=== PATIENT | male | born 1950 | race Caucasian/White ===

== ENCOUNTER → 2019-06-23 13:08 | Outpatient (CLI) | payer MEDICARE, SELFPAY ==
--- NOTE | 2019-06-23 13:14 | CT_ITS ---
STUDY: CT BRAIN WITHOUT CONTRAST REASON FOR EXAM: Male, 68 years old. POSTURAL IMBALANCE RADIATION DOSAGE (If Supplied By Facility): CTDIvol = ( 60.81 ) mGy, DLP = ( 1135.50 ) mGycm TECHNIQUE: Transaxial CT imaging of the brain was performed without administration of intravenous contrast material. Individualized dose optimization techniques were used for this CT. COMPARISON: No relevant priors. FINDINGS: Normal soft tissue structures. Normal calvarium. There is mild cerebral atrophy with widening of the extra-axial spaces and ventricular dilatation. There are areas of decreased attenuation within the white matter tracts of the supratentorial brain, consistent with microvascular disease changes. Normal basal ganglia and thalami. Normal brainstem. Normal cerebellum. There is no intracranial hemorrhage. There are no findings of an acute ischemic infarction. Atherosclerotic calcification of the cavernous portions of the internal carotid arteries bilaterally. A fluid level in the right maxillary sinus suggestive of sinusitis. CT/Brain/Head without Contrast IMPRESSION: Chronic involutional changes of the brain. Right maxillary sinusitis. Electronically Signed: Rohan Ham, at 14:45 EDT , Service support ,
== END ==
PROVIDERS: PCP Nurse Practitioner; Referring Provider Nurse Practitioner; Visit Provider Nurse Practitioner
DX: R42 Dizziness and giddiness (principal); J32.0 Chronic maxillary sinusitis; R29.3 Abnormal posture
CPT/HCPCS: 70450

== ENCOUNTER → 2019-07-17 10:08 | Outpatient (CLI) | payer MEDICARE, SELFPAY ==
--- NOTE | 2019-07-17 10:13 | MRI_ITS ---
STUDY: MRA OF THE HEAD WITHOUT CONTRAST REASON FOR EXAM: Male, 68 years old. Abn carotid on blood flow screening -- no symptoms TECHNIQUE: 3-D [id number] (TOF) imaging was performed with MIPs. The study was performed unenhanced. COMPARISON: CT head without contrast 06/23/2019. FINDINGS: Normal bilateral petrous carotid arteries. Normal right cavernous carotid artery with a normal supraclinoid bifurcation. Normal left cavernous carotid artery with a normal supraclinoid bifurcation. Normal right A1 segment of the anterior cerebral artery. Normal left A1 segment of the anterior cerebral artery. Normal intact anterior communicating artery (ACOM). Normal bilateral A2 segments of the anterior cerebral arteries. Normal right M1 and M2 segments of the middle cerebral arteries, with a normal M1 bifurcation. Normal left M1 and M2 segments of the middle cerebral arteries, with a normal M1 bifurcation. origin of the right WELLNESS NURSE off the right internal carotid artery rather than a widely patent right posterior communicating artery (PCOM). This explains the development of absent right P1 segment. Normal left posterior communicating artery (PCOM). The vertebral arteries are not included. Minimal irregularities in the freitas of the basilar artery with a normal basilar bifurcation. The visualized bilateral superior cerebellar (SCA) arteries are normal. Developmentally absent right P1 segment. Normal left P1, bilateral P2 and visualized P3 segments of the posterior cerebral arteries. There is no demonstrated aneurysm of the [place]. There is no major vessel occlusion or hemodynamically significant stenosis. There is no demonstrated abnormality of the visualized brain. MRI/MRA Head ONLY without Contrast IMPRESSION: 1. Limited MRA of the head since both vertebral arteries are not included. 2. 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 3. No MRA evidence of any suspicious vaso-occlusive disease of the anterior and posterior intracranial circulation. 4. Minimal irregularities of the fre[place] of the basilar artery suggesting small vessel atherosclerotic plaques. 5. No MRA evidence of intracranial aneurysm, saccular or fusiform type. Electronically Signed: Anthony Hutchison MD at 12:33 EDT , Service support ,
--- NOTE | 2019-07-17 10:32 | CDU_ITS ---
Reason For Study: Abnormal carotid on screening Rt. Velocities/BP Lt. Velocities/BP Prox CCA 56.5/10.8 cm/sec. Prox CCA 57.9/14.5 cm/sec. Mid CCA 57.8/12.1 cm/sec. Mid CCA 60.7/15.4 cm/sec. Dist CCA 41/12.4 cm/sec. Dist CCA 51.3/14.5 cm/sec. Prox ICA 32.5/9.9 cm/sec. Prox ICA 43/5.5 cm/sec. Mid ICA 62.2/17 cm/sec. Mid ICA 42.9/18.7 cm/sec. Dist ICA 56.1/18.6 cm/sec. Dist ICA 249.8/104.4 cm/sec. Rt. ICA/CCA = 1.10. Lt. ICA/CCA = 4.3. Prox ECA 89.3/9.1 cm/sec. Prox ECA 82.7/11.3 cm/sec. Rt. Vert. 26.9/7.2 cm/sec. Lt. Vert. 32.4/15.4 cm/sec. Right Extracranial There is homogeneous, smooth atherosclerotic plaque noted in the right common carotid artery. There is heterogeneous, irregular atherosclerotic plaque noted in the right internal carotid artery. There is homogeneous, smooth atherosclerotic plaque noted in the right external carotid artery. Antegrade flow is noted in the right vertebral artery. Left Extracranial There is homogeneous, smooth atherosclerotic plaque noted in the left common carotid artery. There is heterogeneous, irregular atherosclerotic plaque noted in the left internal carotid artery. There is homogeneous, smooth atherosclerotic plaque noted in the left external carotid artery. Antegrade flow is noted in the left vertebral artery. Procedure Carotid Duplex 14907. Known left ICA carotid stenosis from screening on 06/05/2019. Exam performed in department. Interpretation Summary Mild (<50%) stenosis right extracranial internal carotid. There appears to be severe stenosis in the left distal internal carotid artery, >70%. Flow within the vertebral arteries is antegrade bilaterally. Ordering Physician: Isabel Wilson Referring Physician: Isabel Wilson Performed By: Rhoda Lauren RVT
== END ==
PROVIDERS: PCP Nurse Practitioner; Referring Provider Nurse Practitioner; Visit Provider Nurse Practitioner
DX: I67.9 Cerebrovascular disease, unspecified (principal); R93.89 Abnormal findings on diagnostic imaging of other specified body structures
CPT/HCPCS: 70544; 93880

== ENCOUNTER 2019-07-17 14:55 | Emergency (ER) | payer MEDICARE, SELFPAY ==
[2019-07-17 14:56] VITALS: BP 160/93; PULSE 97; RESP 18; TEMP 36.6; O2SAT 97; BMI 33.0
--- NOTE | 2019-07-17 16:09 | ED.RN ---
pt had large bowel movement, reported to dr. castro.
--- NOTE | 2019-07-17 16:41 | ED.DCSUM_ITS ---
History of Present Illness Chief Complaint: Constipation Informant: Patient Onset: Weeks - 1 Timing: Continuous Quality: [place] like he needed to have a bowel movement but unable Location: Rectum Current Severity: Moderate Maximum Severity: Moderate Worsened by: Nothing Relieved by: Nothing Associated Symptoms: None. No abdominal pain, nausea, vomiting, systemic symptoms. Narrative: Patient presents by EMS because he has not had a bowel movement in 6 days. He has had no pain, but today had the urge to go and sat on the toilet for an hour or 2 but could not. Still feels the need to. No history of any abdominal surgeries in the past. No prescription pain medications recently. No medication changes. He cannot recall any obvious changes in his diet that may have resulted in this. Past Medical History - Allergies and Home Meds Allergies/Adverse Reactions: Allergies No Known Allergies Allergy (Verified 07/17/19 14:56) Primary Care Physician: Isabel Wilson NP-C [Primary Care Provider] - Past Medical History: None Surgical History: - - No history of abdominal surgeries Lives: Alone Smoking Status: Former smoker Review of Systems General: Denies: Chills, Fever, Sweats Eyes: Denies: Visual changes - bilaterally, Diplopia ENT: Denies: Rhinorrhea, Sore throat Cardiovascular: Denies: Chest pain, Palpitations Respiratory: Denies: Dyspnea, Cough, Dyspnea on exertion Gastrointestinal: Reports: Constipation. Denies: Abdominal pain, Nausea, Vomiting, Diarrhea, Melena, Hematochezia Genitourinary: Denies: Dysuria, Hematuria, Frequency Musculoskeletal: Denies: Back pain, Swelling, Extremity Pain Skin: Denies: Rash, Wounds Neurological: Denies: Headache, Weakness, Numbness Physical Exam Vital Signs/Narrative: Vital Signs Temp Pulse Resp BP Pulse Ox 07/17/19 14:56 97.8 F 97 18 160/93 H 97 Inital Vital Signs reviewed: Yes General: Well nourished, Well developed, No Acute Distress Head: Normocephalic, Atraumatic Eyes: Perrl, EOMI ENT: Moist mucous membranes, No rhinorrhea Neck: Supple, Nontender Cardiovascular: Regular rate, Regular rhythm, No murmurs Respiratory: No distress, CTA bilaterally, Chest nontender Abdomen: Soft, Nontender, Nondistended, Normal bowel sounds Rectal: Nontender, - - Gross blood. Significant amount of hard stool present in the rectal vault that I was able to circumvent with my finger. Back: Nontender, Normal Inspection Extremities: Nontender, No edema Skin: Normal color, No rash Neurological: Alert, Oriented x3, Cranial nerves II-XII grossly intact, Normal Strength, Normal Sensation Psychological: Normal affect, Normal Mood Diagnostic/Tx/Re-eval - Medical Decision Making Performing a rectal exam, the patient was able to have an extremely large bowel movement and felt much better. Discharged home stable condition with advice to take MiraLAX daily and follow-up routinely, return to the ER for any worsening issues. ED Disposition - Plan for ED Patient: Disposition: Home or Assisted Living Diagnosis: Constipation Instructions: ED Constipation Referrals: Isabel Wilson NP-C [Primary Care Provider] - Additional Instructions: Buy a bottle of MiraLAX or generic equivalent, take 1 capful dissolved in at least 8 ounces of any liquid once daily along with plenty of fluids.
== END 2019-07-17 17:06 | disposition home or self-care (01) ==
PROVIDERS: Emergency Provider Emergency Medicine; PCP Nurse Practitioner
DX: K59.00 Constipation, unspecified (principal); Z87.891 Personal history of nicotine dependence; I65.23 Occlusion and stenosis of bilateral carotid arteries; I67.9 Cerebrovascular disease, unspecified; R93.89 Abnormal findings on diagnostic imaging of other specified body structures
CPT/HCPCS: 70544; 93880; 99284

== ENCOUNTER → 2020-08-07 07:29 | Outpatient (CLI) | payer MEDICARE, SELFPAY ==
--- NOTE | 2020-08-07 07:32 | CT_ITS ---
STUDY: LOW DOSE CT LUNG CANCER SCREENING REASON FOR EXAM: Male, 69 years old. FORMER SMOKER. Patient smoked 2 packs per day for 39 years. RADIATION DOSAGE (If Supplied By Facility): CTDIvol = ( 4.02 ) mGy, DLP = ( 131.39 ) mGycm TECHNIQUE: No contrast was administered. Low dose technique was utilized (average mAS-38 and kVp 120). 1.25 mm axial source images with a slice interval of 1.25-mm were reconstructed in lung windows. 2.5 mm axial source images with a slice interval of 2.5-mm were reconstructed in lung windows. 5.0 mm axial source images with a slice interval of 5.0-mm were reconstructed in soft tissue windows. Nodule measured using lung windows on PACS and/or independent workstation with automated measurement of minimum and maximum diameter. Nodule measurement reported as average diameter rounded to the nearest whole number. Growth is defined as an increase ins size of greater than 1.5 mm. COMPARISON: None. NODULES: No suspicious nodules are seen. Emphysema: Hyperinflation. Mild degree of the subpleural bleb seen in the anterior aspects of both upper lobes slightly more prominent on the right side. Mild degree of increased markings at the lung bases suggestive of mild degree of scarring slightly more prominent at the left lung base. Endobronchial lesion: None Aorta: Calcified aortic plaques. Coronary arteries: Coronary artery calcification. Heart: Unremarkable Pulmonary artery: Unremarkable Mediastinal nodes: Small benign-appearing mediastinal lymph nodes. Other chest and abdominal findings: Degenerative changes of the thoracic spine. CT/Low Dose CT Lung Screening IMPRESSION: Lung-RADS category 2 - Continue annual screening with LDCT in 12 months. IMPORTANT NOTES FOR USE: ACR Lung-RADS Version 1.1 Assessment Categories Release Date: 2018 Category: Coded 0-4 bases on nodule(s) with highest degree of suspicion. Negative screen is defined as categories 1 and 2; a positive screen is defined as categories 3 and 4. Category 3 and 4A nodules that are unchanged on interval CT should be coded as category 2, and individuals returned to screening in 12 months. Category 4X: Category 3 or 4 nodules with additional imaging findings that increase the suspicion of lung cancer, such as spiculation, GGN that doubles in size in 1 year, enlarged lymph notes, etc. Category Modifiers: S (significant finding unrelated to lung cancer) Electronically Signed: Rohan Ham MD at 9:57 EDT , Service support ,
== END ==
PROVIDERS: PCP Nurse Practitioner; Referring Provider Nurse Practitioner; Visit Provider Nurse Practitioner
DX: Z77.090 Contact with and (suspected) exposure to asbestos (principal); Z87.891 Personal history of nicotine dependence
CPT/HCPCS: 71271

== ENCOUNTER → 2022-01-02 | Outpatient (CLI) | payer MEDICARE, SELFPAY ==
--- NOTE | 2022-01-02 08:20 | CT_ITS ---
STUDY: LOW DOSE CT LUNG CANCER SCREENING REASON FOR EXAM: Male, 71 years old. Former smoker of 2 packs per day x39 years. RADIATION DOSAGE (If Supplied By Facility): CTDIvol = ( 3.18 ) mGy, DLP = ( 117.55 ) mGycm TECHNIQUE: No contrast was administered. Low dose technique was utilized (average mAS-38 and kVp 120). 1.25 mm axial source images with a slice interval of 1.25-mm were reconstructed in lung windows. 2.5 mm axial source images with a slice interval of 2.5-mm were reconstructed in lung windows. 5.0 mm axial source images with a slice interval of 5.0-mm were reconstructed in soft tissue windows. COMPARISON: 08/07 21 FINDINGS: Lung windows show mild underlying emphysema. Mild interstitial changes noted throughout both lung fisher without a superimposed infiltrate, effusion, or suspicious noncalcified mass or nodule. No significant interval change since the previous study. Soft tissue windows show normal-appearing thyroid gland. No suspicious adenopathy. Stable aneurysmal dilatation of the ascending thoracic aorta at 4.57 cm. There are calcified coronary vessels. Limited cuts through the upper abdomen do not show suspicious abnormality. Bony structures show degenerative change CT/Low Dose CT Lung Screening IMPRESSION: Lung-RADS category 2 - Continue annual screening with LDCT in 12 months. IMPORTANT NOTES FOR USE: ACR Lung-RADS Version 1.1 Assessment Categories Release Date: 2018 Category: Coded 0-4 bases on nodule(s) with highest degree of suspicion. Negative screen is defined as categories 1 and 2; a positive screen is defined as categories 3 and 4. Category 3 and 4A nodules that are unchanged on interval CT should be coded as category 2, and individuals returned to screening in 12 months. Category 4X: Category 3 or 4 nodules with additional imaging findings that increase the suspicion of lung cancer, such as spiculation, GGN that doubles in size in 1 year, enlarged lymph notes, etc. Category Modifiers: S (significant finding unrelated to lung cancer) Electronically Signed: Paco Powers MD at 10:25 EDT ,
== END | disposition home or self-care (01) ==
PROVIDERS: PCP Nurse Practitioner Family; Referring Provider Nurse Practitioner Family; Visit Provider Nurse Practitioner Family
DX: Z87.891 Personal history of nicotine dependence (principal)
CPT/HCPCS: 71271

== ENCOUNTER 2023-04-10 22:51 | Emergency (ER) | payer MEDICARE, SELFPAY ==
[2023-04-10 22:51] VITALS: BP 192/94; PULSE 91; RESP 17; TEMP 36.8; O2SAT 99; BMI 35.0
--- OUTSIDE RECORDS SUMMARY | 2023-04-10 23:26 | XMS RPT_ITS | CCD ---
Author Name Unknown Address [address] [facility] [address] [place] [address] Organization [facility] Care Team Providers Care Reports Analysis Manager Name Role Phone Isabel Wilson Unavailable Bethany Walter Unavailable Javi Nolasco Unavailable Unavailable Unavailable Unavailable Javi Villanueva Unavailable Unavailable Melinda Marx Unavailable Unavailable Isabel Wilson CNP Unavailable Javi Villanueva LPN Unavailable Unavailable Unavailable Unavailable Carter Walter Unavailable Cheryl Marquez LPN Unavailable Unavailable Isabel Wilson CNP Primary Care Provider Maria Luisa Pizano CNP Unavailable Maria Luisa Pizano CNP Unavailable Stew Pollard Unavailable Michele CATES, Kayela Unavailable Unavailable Jose KNOX, RADHIKA Unavailable Unavailable Isabel Wilson Unavailable Francisco J KNOX Melinda Unavailable Unavailable Maria Luisa Pizano CNP Attending Unavailable Maria Luisa Pizano CNP Consulting Unavailable Maria Luisa Pizano CNP Referring Unavailable Baljinder Nesbitt Unavailable Medications Completed/Discontinued Medications Medication Drug Class(es) Dates Sig (Normalized) Sig (Original) acyclovir 800 mg oral tablet (20 sources) Herpesvirus Nucleoside Analog DNA Polymerase Inhibitor, Herpes Simplex Virus Nucleoside Analog DNA Polymerase Inhibitor, Herpes Zoster Virus Nucleoside Analog DNA Polymerase Inhibitor Start: 01-11-2012 End: 01-18-2012 ACYCLOVIR, 800MG (Oral Tablet) 1 Tablet 5 x daily for 7 days Quantity: 35 {Tablet} Refills: 0 Ordered: 11-Jan-2012 Isabel Wilson Start : 11-Jan-2012 End : 18-Jan-2012 Inactive amoxicillin 500 mg / clavulanate 125 mg oral tablet (20 sources) Penicillin-class Antibacterial Start: 06-23-2019 End: 07-07-2019 take 1 tablet by mouth twice daily Amoxicillin-Pot Clavulanate 500-125 MG Oral Tablet 1 (one) Tablet bid for 10 days Quantity: 20 {Tablet} Refills: 0 Ordered: 07-Jul-2019 Javi Villanueva LPN Start : 29-Jun-2019 End : 07-Jul-2019 Inactive Apple Cider Vinegar (1 source) take 1 tablet by mouth once daily APPLE CIDER VINEGAR ORAL Take 1 tablet by mouth once daily. 0 Active Problems Active Problems Problem Classification Problem Date Documented Da te Episodic/Chronic Abdominal pain (20 sources) Right lower quadrant pain; Translations: [Abdominal pain, acute, right lower quadrant] Resolved: 09-25-2019 07-07-2019 Episodic Past or Other Problems Problem Classification Problem Date Documented Da te Episodic/Chronic Influenza (11 sources) Influenza Substance-related disorders (15 sources) Stopped smoking; Translations: [Former smoker, stopped smoking in distant past] 07-07-2019 Results Test Name Value Interpretation Reference Range Facil ity Vital Signs Date Time Vital Sign Value Performing Clinician Facility 01-01-2023 10:20-0400 Body height 173.99 cm Melinda Marx LPN [facility] Work Phone: 01-01-2023 10:20-0400 Body mass index (BMI) [Ratio] 34.91 kg/m2 Melinda Marx LPN [facility] Work Phone: 01-01-2023 10:20-0400 Body surface area Derived from formula 2.19 m2 Melinda Marx LPN [facility] Work Phone: 01-01-2023 10:20-0400 Body temperature 96.5 [degF] Melinda Marx LPN [facility] Work Phone: Encounters Encounter Date Encounter Type Care Provider Facility Start: 01-01-2023 End: 01-06-2023 Office outpatient visit 25 minutes Maria Luisa Pizano CNP Work Phone: [facility] Start: 01-01-2023 Review Maria Luisa Pizano CNP Work Phone: [facility] Start: 11-25-2022 End: 11-25-2022 Annotation/Addendum Maria Luisa Pizano CNP Work Phone: [facility] Start: 11-24-2022 Review Maria Luisa Pizano CNP Work Phone: [facility] Start: 11-23-2022 End: 11-24-2022 Office outpatient visit 15 minutes Maria Luisa Pizano CNP Work Phone: [facility] Start: 10-02-2022 End: 10-02-2022 Annotation/Addendum Maria Luisa Pizano CNP Work Phone: [facility] Start: 09-30-2022 End: 10-08-2022 Office outpatient visit 15 minutes Maria Luisa Pizano CNP Work Phone: [facility] Start: 06-30-2022 End: 07-03-2022 Office outpatient visit 25 minutes Maria Luisa Pizano CNP Work Phone: [facility] Start: 04-01-2022 ambulatory Maria Luisa Pizano CNP [facility] Start: 04-01-2022 End: 04-01-2022 Office outpatient visit 25 minutes Maria Luisa Pizano CNP Work Phone: [facility] Start: 04-01-2022 Review Maria Luisa Pizano CNP Work Phone: [facility] Start: 12-30-2021 End: 01-02-2022 Office outpatient visit 25 minutes Maria Luisa Pizano [employer] Work Phone: [facility] Start: 2021 End: 2021 Office outpatient visit 25 minutes Maria Luisa Pizano [employer] Work Phone: [facility] Start: 2021 Review Maria Luisa Pizano CNP Work Phone: [facility] Start: 09-17-2021 Telephone encounter Carter Walter MD Work Phone: [facility] Procedures Date Procedure Procedure Detail Performing Clinician Start: 11-23-2022 End: 11-24-2022 HIP, UNI W/ Pelvis 2-3 Views Procedure Note: See Note; NOTES: [facility] Radiology [address] [place] [address] HIP, UNI W/ Pelvis 2-3 Views MR#: [id number] Acct: [id number] Name: LINDA WILLIS Rep #: [id number] : 1950 M 72 From: Luis Powers MD PCP: MARIYA Chi Status: DEP AMB Study: HIP, UNI W/ Pelvis 2-3 Views Date of Exam: 02/04 Exam# [id number] Ordering Dr: Maria Luisa Pizano STUDY: X-RAY - PELVIS AND LEFT HIP REASON FOR EXAM: Male, 72 years old. PAIN TECHNIQUE: 3 views of the pelvis and hip. COMPARISON: None. FINDINGS: There is a non-specific bowel gas pattern. Normal visualized soft tissue structures. There is narrowing with cortical sclerosis and osteophyte formation of the sacroiliac joint consistent with degenerative osteoarthritic changes. Normal bilateral superior and inferior pubic rami. Normal pubic symphysis. Normal bilateral ischial tuberosities. Normal visualized femoral head. Normal acetabulum. There is moderate articular joint space narrowing of the hip. Mild left hip arthrosis RAD/HIP, UNI W/ Pelvis 2-3 Views IMPRESSION: Age consistent degenerative changes without fracture or suspicious osseous lesion. However, hip and pelvic fractures in patients of this age can be subtle, if there is strong clinical suspicion of a fracture, recommend further evaluation with CT Electronically Signed: Paco Powers MD at 17:03 EDT , CC: MARIYA Pizano Auxiliary Power Equipment Operator: Signed Maria Luisa Pizano [facility] Work Phone: Start: 01-02-2022 End: 01-02-[address] Lung Screening Procedure Note: See Note; NOTES: [facility] Imaging Services [address] [place] [address] Lung Screening MR#: [id number] Acct: [id number] Name: LINDA WILLIS Rep #: [id number] : 1950 M 71 From: Luis Powers MD PCP: MARIYA Chi Status: [facility] CL Study: Low Dose CT Lung Screening Date of Exam: 01/02 Exam# [id number] Ordering Dr: Maria Luisa Pizano STUDY: LOW DOSE CT LUNG CANCER SCREENING REASON FOR EXAM: Male, 71 years old. Former smoker of 2 packs per day x39 years. RADIATION DOSAGE (If Supplied By Facility): CTDIvol = ( 3.18 ) mGy, DLP = ( 117.55 ) mGycm TECHNIQUE: No contrast was administered. Low dose technique was utilized (average mAS-38 and kVp 120). 1.25 mm axial source images with a slice interval of 1.25-mm were reconstructed in lung windows. 2.5 mm axial source images with a slice interval of 2.5-mm were reconstructed in lung windows. 5.0 mm axial source images with a slice interval of 5.0-mm were reconstructed in soft tissue windows. COMPARISON: 08/07 21 FINDINGS: Lung windows show mild underlying emphysema. Mild interstitial changes noted throughout both lung fisher without a superimposed infiltrate, effusion, or suspicious noncalcified mass or nodule. No significant interval change since the previous study. Soft tissue windows show normal-appearing thyroid gland. No suspicious adenopathy. Stable aneurysmal dilatation of the ascending thoracic aorta at 4.57 cm. There are calcified coronary vessels. Limited cuts through the upper abdomen do not show suspicious abnormality. Bony structures show degenerative change CT/Low Dose CT Lung Screening IMPRESSION: Lung-RADS category 2 - Continue annual screening with LDCT in 12 months. IMPORTANT NOTES FOR USE: ACR Lung-RADS Version 1.1 Assessment Categories Release Date: 2018 Category: Coded 0-4 bases on nodule(s) with highest degree of suspicion. Negative screen is defined as categories 1 and 2; a positive screen is defined as categories 3 and 4. Category 3 and 4A nodules that are unchanged on interval CT should be coded as category 2, and individuals returned to screening in 12 months. Category 4X: Category 3 or 4 nodules with additional imaging findings that increase the suspicion of lung cancer, such as spiculation, GGN that doubles in size in 1 year, enlarged lymph notes, etc. Category Modifiers: S (significant finding unrelated to lung cancer) Electronically Signed: Paco Powers MD at 10:25 EDT , CC: Maria Luisa Pizano LOAD PLANNER; LOAD PLANNER-C Maria Luisa Pizano Auxiliary Power Equipment Operator: Signed Maria Luisa Pizano CNP Work Phone: Start: 08-07-2020 End: 08-07-[address] Lung Screening Comments: See Note; NOTES: [facility] Imaging Services [address] [place] [address] Lung Screening MR#: [id number] Acct: [id number] Name: LINDA WILLIS Rep #: [id number] : 1950 M 69 From: Rohan stratton MD PCP: MARYIA Carney Status: [facility] CL Study: Low Dose CT Lung Screening Date of Exam: 08/07 Exam# [id number] Ordering Dr: Isabel Wilson NP LOAD PLANNER-C STUDY: LOW DOSE CT LUNG CANCER SCREENING REASON FOR EXAM: Male, 69 years old. FORMER SMOKER. Patient smoked 2 packs per day for 39 years. RADIATION DOSAGE (If Supplied By Facility): CTDIvol = ( 4.02 ) mGy, DLP = ( 131.39 ) mGycm TECHNIQUE: No contrast was administered. Low dose technique was utilized (average mAS-38 and kVp 120). 1.25 mm axial source images with a slice interval of 1.25-mm were reconstructed in lung windows. 2.5 mm axial source images with a slice interval of 2.5-mm were reconstructed in lung windows. 5.0 mm axial source images with a slice interval of 5.0-mm were reconstructed in soft tissue windows. Nodule measured using lung windows on PACS and/or independent workstation with automated measurement of minimum and maximum diameter. Nodule measurement reported as average diameter rounded to the nearest whole number. Growth is defined as an increase ins size of greater than 1.5 mm. COMPARISON: None. NODULES: No suspicious nodules are seen. Emphysema: Hyperinflation. Mild degree of the subpleural bleb seen in the anterior aspects of both upper lobes slightly more prominent on the right side. Mild degree of increased markings at the lung bases suggestive of mild degree of scarring slightly more prominent at the left lung base. Endobronchial lesion: None Aorta: Calcified aortic plaques. Coronary arteries: Coronary artery calcification. Heart: Unremarkable Pulmonary artery: Unremarkable Mediastinal nodes: Small benign-appearing mediastinal lymph nodes. Other chest and abdominal findings: Degenerative changes of the thoracic spine. CT/Low Dose CT Lung Screening IMPRESSION: Lung-RADS category 2 - Continue annual screening with LDCT in 12 months. IMPORTANT NOTES FOR USE: ACR Lung-RADS Version 1.1 Assessment Categories Release Date: 2018 Category: Coded 0-4 bases on nodule(s) with highest degree of suspicion. Negative screen is defined as categories 1 and 2; a positive screen is defined as categories 3 and 4. Category 3 and 4A nodules that are unchanged on interval CT should be coded as category 2, and individuals returned to screening in 12 months. Category 4X: Category 3 or 4 nodules with additional imaging findings that increase the suspicion of lung cancer, such as spiculation, GGN that doubles in size in 1 year, enlarged lymph notes, etc. Category Modifiers: S (significant finding unrelated to lung cancer) Electronically Signed: Rohan Ham MD at 9:57 EDT , Service support , CC: MARIYA Wilson Auxiliary Power Equipment Operator: Signed Isabel Wilson [facility] Work Phone: Start: 07-17-2019 End: 07-17-2019 Emergency Department Summary Comments: See Note; NOTES: [facility] Medical Records Department [address] [place] [address] Emergency Department Summary 07/17/19 MR#: [id number] Acct: [id number] Name: LINDA WILLIS Rep #: [id number] : 1950 68 From: Servando Callaway MD PCP: MARIYA Carney Status: REG ER History of Present Illness Chief Complaint: Constipation Informant: Patient Onset: Weeks - 1 Timing: Continuous Quality: [place] like he needed to have a bowel movement but unable Location: Rectum Current Severity: Moderate Maximum Severity: Moderate Worsened by: Nothing Relieved by: Nothing Associated Symptoms: None. No abdominal pain, nausea, vomiting, systemic symptoms. Narrative: Patient presents by EMS because he has not had a bowel movement in 6 days. He has had no pain, but today had the urge to go and sat on the toilet for an hour or 2 but could not. Still feels the need to. No history of any abdominal surgeries in the past. No prescription pain medications recently. No medication changes. He cannot recall any obvious changes in his diet that may have resulted in this. Past Medical History - Allergies and Home Meds Allergies/Adverse Reactions: Allergies No Known Allergies Allergy (Verified 07/17/19 14:56) Primary Care Physician: Isabel Wilson NP-C [Primary Care Provider] - Past Medical History: None Surgical History: - - No history of abdominal surgeries Lives: Alone Smoking Status: Former smoker Review of Systems General: Denies: Chills, Fever, Sweats Eyes: Denies: Visual changes - bilaterally, Diplopia ENT: Denies: Rhinorrhea, Sore throat Cardiovascular: Denies: Chest pain, Palpitations Respiratory: Denies: Dyspnea, Cough, Dyspnea on exertion Gastrointestinal: Reports: Constipation. Denies: Abdominal pain, Nausea, Vomiting, Diarrhea, Melena, Hematochezia Genitourinary: Denies: Dysuria, Hematuria, Frequency Musculoskeletal: Denies: Back pain, Swelling, Extremity Pain Skin: Denies: Rash, Wounds Neurological: Denies: Headache, Weakness, Numbness Physical Exam Vital Signs/Narrative: Vital Signs 07/17/19 14:56 97.8 F 97 18 160/93 H 97 Inital Vital Signs reviewed: Yes General: Well nourished, Well developed, No Acute Distress Head: Normocephalic, Atraumatic Eyes: Perrl, EOMI ENT: Moist mucous membranes, No rhinorrhea Neck: Supple, Nontender Cardiovascular: Regular rate, Regular rhythm, No murmurs Respiratory: No distress, CTA bilaterally, Chest nontender Abdomen: Soft, Nontender, Nondistended, Normal bowel sounds Rectal: Nontender, - - Gross blood. Significant amount of hard stool present in the rectal vault that I was able to circumvent with my finger. Back: Nontender, Normal Inspection Extremities: Nontender, No edema Skin: Normal color, No rash Neurological: Alert, Oriented x3, Cranial nerves II-XII grossly intact, Normal Strength, Normal Sensation Psychological: Normal affect, Normal Mood Diagnostic/Tx/Re-eval - Medical Decision Making Performing a rectal exam, the patient was able to have an extremely large bowel movement and felt much better. Discharged home stable condition with advice to take MiraLAX daily and follow-up routinely, return to the ER for any worsening issues. ED Disposition - Plan for ED Patient: Disposition: Home or Assisted Living Diagnosis: Constipation Instructions: ED Constipation Referrals: Isabel Wilson NP-C [Primary Care Provider] - Additional Instructions: Buy a bottle of MiraLAX or generic equivalent, take 1 capful dissolved in at least 8 ounces of any liquid once daily along with plenty of fluids. What to do if you have Problems For any increased pain, shortness of breath, bleeding, nausea or vomiting, chest pain, or any unexpected problems, contact your Primary Care Provider. Call [employer] [facility] ([phone]) or report to the closest Emergency Room. Call 911 if necessary. 07/17/19 7323 <Electronically signed by Servando Callaway MD> Date Servando Callaway MD Cosigner Signature (If Indicated): Date CC: LOAD PLANNER-C Isabel Ciesa Isabel Ciesa Start: 07-17-2019 End: 07-17-2019 Carotid Duplex Ultrasound Comments: See Note; NOTES: [facility] Cardiovascular Services [address] [place] [address] Carotid Duplex Ultrasound 07/17/19 1121 MR#: [id number] Acct: [id number] Name: LINDA WILLIS Rep #: [id number] : 1950 68 From: Federico Rich MD Attending Dr: MARIYA Carney Status: REG CLI Ordering Dr: Isabel Wilson Date: 07/17/19 Location: MRI Sex: M C Admitted: Reason For Study: Abnormal carotid on screening Rt. Velocities/BP Lt. Velocities/BP Prox CCA 56.5/10.8 cm/sec. Prox CCA 57.9/14.5 cm/sec. Mid CCA 57.8/12.1 cm/sec. Mid CCA 60.7/15.4 cm/sec. Dist CCA 41/12.4 cm/sec. Dist CCA 51.3/14.5 cm/sec. Prox ICA 32.5/9.9 cm/sec. Prox ICA 43/5.5 cm/sec. Mid ICA 62.2/17 cm/sec. Mid ICA 42.9/18.7 cm/sec. Dist ICA 56.1/18.6 cm/sec. Dist ICA 249.8/104.4 cm/sec. Rt. ICA/CCA = 1.10. Lt. ICA/CCA = 4.3. Prox ECA 89.3/9.1 cm/sec. Prox ECA 82.7/11.3 cm/sec. Rt. Vert. 26.9/7.2 cm/sec. Lt. Vert. 32.4/15.4 cm/sec. Right Extracranial There is homogeneous, smooth atherosclerotic plaque noted in the right common carotid artery. There is heterogeneous, irregular atherosclerotic plaque noted in the right internal carotid artery. There is homogeneous, smooth atherosclerotic plaque noted in the right external carotid artery. Antegrade flow is noted in the right vertebral artery. Left Extracranial There is homogeneous, smooth atherosclerotic plaque noted in the left common carotid artery. There is heterogeneous, irregular atherosclerotic plaque noted in the left internal carotid artery. There is homogeneous, smooth atherosclerotic plaque noted in the left external carotid artery. Antegrade flow is noted in the left vertebral artery. Procedure Carotid Duplex 10972. Known left ICA carotid stenosis from screening on 06/05/2019. Exam performed in department. Interpretation Summary Mild (<50%) stenosis right extracranial internal carotid. There appears to be severe stenosis in the left distal internal carotid artery, >70%. Flow within the vertebral arteries is antegrade bilaterally. _ Ordering Physician: Isabel Wilson Referring Physician: Isabel Wilson Performed By: Rhoda Lauren T 07/17/19 1602 Date Federico Rich MD CC: MARIYA Wilson Date Dictated: 07/17/19 1121 Date Transcribed: 07/17/19 1602 Auxiliary Power Equipment Operator: Signed Isabel Wilson Work Phone: Start: 07-17-2019 End: 07-17-2019 MRA Head ONLY without Contrast Comments: See Note; NOTES: [facility] Imaging Services [address] [place] [address] MRA Head ONLY without Contrast MR#: [id number] Acct: [id number] Name: LINDA WILLIS Rep #: [id number] : 1950 M 68 From: Anthony Hutchison MD PCP: MARIYA Carney Status: REG CLI Study: MRA Head ONLY without Contrast Date of Exam: 0 07/17/19 Exam# [id number] Ordering Dr: Ciesa,Isabel LOAD PLANNER-C STUDY: MRA OF THE HEAD WITHOUT CONTRAST REASON FOR EXAM: Male, 68 years old. Abn carotid on blood flow screening -- no symptoms TECHNIQUE: 3-D umvi-wa-jsltau (TOF) imaging was performed with MIPs. The study was performed unenhanced. COMPARISON: CT head without contrast 06/23/2019. FINDINGS: Normal bilateral petrous carotid arteries. Normal right cavernous carotid artery with a normal supraclinoid bifurcation. Normal left cavernous carotid artery with a normal supraclinoid bifurcation. Normal right A1 segment of the anterior cerebral artery. Normal left A1 segment of the anterior cerebral artery. Normal intact anterior communicating artery (ACOM). Normal bilateral A2 segments of the anterior cerebral arteries. Normal right M1 and M2 segments of the middle cerebral arteries, with a normal M1 bifurcation. Normal left M1 and M2 segments of the middle cerebral arteries, with a normal M1 bifurcation. origin of the right TOGGLER off the right internal carotid artery rather than a widely patent right posterior communicating artery (PCOM). This explains the development of absent right P1 segment. Normal left posterior communicating artery (PCOM). The vertebral arteries are not included. Minimal irregularities in the freitas of the basilar artery with a normal basilar bifurcation. The visualized bilateral superior cerebellar (SCA) arteries are normal. Developmentally absent right P1 segment. Normal left P1, bilateral P2 and visualized P3 segments of the posterior cerebral arteries. There is no demonstrated aneurysm of the [place]. There is no major vessel occlusion or hemodynamically significant stenosis. There is no demonstrated abnormality of the visualized brain. MRI/MRA Head ONLY without Contrast IMPRESSION: 1. Limited MRA of the head since both vertebral arteries are not included. 2. Developmentally absent right P1 segment explains the origin of the right TOGGLER off the right internal carotid artery. 3. No MRA evidence of any suspicious vaso-occlusive disease of the anterior and posterior intracranial circulation. 4. Minimal irregularities of the freitas of the basilar artery suggesting small vessel atherosclerotic plaques. 5. No MRA evidence of intracranial aneurysm, saccular or fusiform type. Electronically Signed: Anthony Hutchison MD at 12:33 EDT , Service support , CC: MARIYA Wilson Auxiliary Power Equipment Operator: Signed Isabel Wilson Work Phone: Start: 06-23-2019 End: 06-23-2019 Brain/Head without Contrast Comments: See Note; NOTES: [facility] Imaging Services [address] [facility] [place] [address] Brain/Head without Contrast MR#: [id number] Acct: [id number] Name: LINDA WILLIS Rep #: [id number] : 1950 M 68 From: Rohan Ham MD PCP: MARIYA Carney Status: REG CLI Study: Brain/Head without Contrast Date of Exam: 06/23/19 Exam# [id number] Ordering Dr: Isabel Wilson STUDY: CT BRAIN WITHOUT CONTRAST REASON FOR EXAM: Male, 68 years old. POSTURAL IMBALANCE RADIATION DOSAGE (If Supplied By Facility): CTDIvol = ( 60.81 ) mGy, DLP = ( 1135.50 ) mGycm TECHNIQUE: Transaxial CT imaging of the brain was performed without administration of intravenous contrast material. Individualized dose optimization techniques were used for this CT. COMPARISON: No relevant priors. FINDINGS: Normal soft tissue structures. Normal calvarium. There is mild cerebral atrophy with widening of the extra-axial spaces and ventricular dilatation. There are areas of decreased attenuation within the white matter tracts of the supratentorial brain, consistent with microvascular disease changes. Normal basal ganglia and thalami. Normal brainstem. Normal cerebellum. There is no intracranial hemorrhage. There are no findings of an acute ischemic infarction. Atherosclerotic calcification of the cavernous portions of the internal carotid arteries bilaterally. A fluid level in the right maxillary sinus suggestive of sinusitis. CT/Brain/Head without Contrast IMPRESSION: Chronic involutional changes of the brain. Right maxillary sinusitis. Electronically Signed: Rohan Ham, at 14:45 EDT , Service support , CC: MARIYA Wilson Auxiliary Power Equipment Operator: Signed Isabel Wilson Work Phone: Start: 06-16-2019 End: 06-16-2019 No Known Past Surgical History Javi Nolasco Plan of Treatment Date Care Activity Detail Author Start: 01-06-2023 Creatinine other source MICROALB;CREAT VANESSA, RAND UR ([id number]) : next visit [facility] Work Phone: Start: 01-01-2023 Procedure Education Eprescribed prescriptions (G8553) [facility] Work Phone: Start: 01-01-2023 Provider Instructions for Treatment Follow up in 3 months [facility] Work Phone: Start: 11-23-2022 Procedure Education Eprescribed prescriptions (G8553) [facility]; [facility] Work Phone: Start: 11-23-2022 Provider Instructions for Treatment [facility] Work Phone: Start: 09-30-2022 Assay of prostate specific antigen total PSA (PROSTATE SPECIFIC ANTIGEN) (43098) : Due 2022 [facility] Work Phone: Start: 09-30-2022 Blood count complete auto&auto difrntl wbc CBC, PLATELETS & AUT DIFF ([id number]) [facility]; [facility] Work Phone: Start: 09-30-2022 Comprehensive metabolic panel METABOLIC PANEL, COMPREHENSIVE (42019) [facility]; [facility] Work Phone: Start: 09-30-2022 Procedure Education Eprescribed prescriptions (G8553) [facility]; [facility] Work Phone: Start: 09-30-2022 Provider Instructions for Treatment Follow up in 3 months [facility]; [facility] Work Phone: Start: 06-30-2022 Creatinine other source MICROALB;CREAT RATION, RAND UR (02480) [facility]; [facility] Work Phone: Start: 06-30-2022 Lipid panel LIPID PANEL (03317) [facility]; [facility] Work Phone: Start: 06-30-2022 Procedure Education Eprescribed prescriptions (G8553) [facility]; [facility] Work Phone: Start: 04-01-2022 25 hydroxy includes fractions if performed CALCIFEDIOL (70610) [facility]; [facility] Work Phone: Start: 04-01-2022 Blood count complete auto&auto difrntl wbc CBC, PLATELETS & AUT DIFF (75042) [facility]; [facility] Work Phone: Start: 04-01-2022 Comprehensive metabolic panel METABOLIC PANEL, COMPREHENSIVE (85201) [facility]; [facility] Work Phone: Start: 04-01-2022 Creatinine other source MICROALB;CREAT RATION, RAND UR ([id number]) [facility]; [facility] Work Phone: Start: 04-01-2022 Gluc bld gluc mntr dev cleared fda spec home use Blood Glucose , Office (54093) [facility]; [facility] Work Phone: Start: 04-01-2022 Hemoglobin glycosylated a1c HgA1C , Office (54436) [facility]; [facility] Work Phone: Start: 04-01-2022 Procedure Education Eprescribed prescriptions (G8553) [facility]; [facility] Work Phone: Start: 04-01-2022 Provider Instructions for Treatment [facility] Work Phone: Start: 12-30-2021 Procedure Education Eprescribed prescriptions (G8553) [facility]; [facility] Work Phone: Start: 12-30-2021 Provider Instructions for Treatment [facility]; [facility] Work Phone: Start: 11-13-2021 Influenza vaccination INFLUENZA (#1) [facility] Start: 2021 Procedure Education Eprescribed prescriptions (G8553) [facility]; [facility] Work Phone: Start: 2021 Provider Instructions for Treatment Follow up in 3 months [facility]; [facility] Work Phone: Start: 2021 Assay of prostate specific antigen total PSA (PROSTATE SPECIFIC ANTIGEN) ([id number]) [facility]; [facility] Work Phone: Immunizations Immunization Date Immunization Notes Care Provider Xavier kent 06-17-2020 COVID-19 (Moderna) Isabel marie CNP Work Phone: [facility]; [facility] Work Phone: 05-15-2020 [facility]19 (Moderna) [facility] Work Phone: Payers Date Payer Category Payer Private Health Insurance [id number] 2017 Medicare HU[employer]NA MEDICARE HU[employer]NA MEDICARE PPO [id number] 2017-Present [id number] [place], [place] [id number] PPO [id number] 1948 Unknown [id number] Private Health Insurance [id number] Unknown HUMANA/MCARE PPO Social History Date Type Detail Facility Caffeine Use Caffeine Use [facility] Work Phone: Medical Equipment Procedure Code Equipment Code Equipment Origin al Text Equipment Identifier Dates Lancet Device Miscellaneous 1 (one) device bid for 30 days Quantity: 60 {QS} Refills: 2 Ordered: 23-Jun-2019 Javi Nolasco LPN Start : 23-Jun-2019 Active Start: 06-23-2019 NovoFine Autocov er 30G X 8 MM Miscellaneous 1 (one) Each as directed daily for 0 days Quantity: 90 {Each} Refills: 0 Ordered: 07-Jul-2019 Ciesa DRAFTER ELECTRICAL, Sailaja Ciesa DRAFTER ELECTR[employer], Sailaja Start : 07-Jul-2019 Active Start: 07-07-2019 OneTouch Verio I n Vitro Strip 1 (one) Each test bid for 30 days Quantity: 60 {Each} Refills: 0 Ordered: 23-Jun-2019 Javi Nolasco LPN Start : 23-Jun-2019 End : 23-Jul-2019 Inactive Start: 06-23-2019 End: 07-23-2019 Lancet Device Miscellaneous 1 (one) device bid for 30 days Quantity: 60 {QS} Refills: 2 Ordered: 23-Jun-2019 Javi Nolasco LPN Start : 23-Jun-2019 Active Start: 06-23-2019 NovoFine Autocov er 30G X 8 MM Miscellaneous 1 (one) Each as directed daily for 0 days Quantity: 90 {Each} Refills: 0 Ordered: 07-Jul-2019 Javi Nolasco LPN Start : 07-Jul-2019 Active Start: 07-07-2019 OneTouch Verio I n Vitro Strip 1 (one) Each test bid for 30 days Quantity: 60 {Each} Refills: 0 Ordered: 23-Jun-2019 Javi Nolasco LPN Start : 23-Jun-2019 End : 23-Jul-2019 Inactive Start: 06-23-2019 End: 07-23-2019 Lancet Device Miscellaneous 1 (one) device bid for 30 days Quantity: 60 {QS} Refills: 2 Ordered: 23-Jun-2019 Javi Nolasco LPN Start : 23-Jun-2019 Active Start: 06-23-2019 NovoFine Autocov er 30G X 8 MM Miscellaneous 1 (one) Each as directed daily for 0 days Quantity: 90 {Each} Refills: 0 Ordered: 07-Jul-2019 Javi Nolasco LPN Start : 07-Jul-2019 Active Start: 07-07-2019 OneTouch Verio I n Vitro Strip 1 (one) Each test bid for 30 days Quantity: 60 {Each} Refills: 0 Ordered: 23-Jun-2019 Javi Nolasco LPN Start : 23-Jun-2019 End : 23-Jul-2019 Inactive Start: 06-23-2019 End: 07-23-2019 Lancet Device Miscellaneous 1 (one) device bid for 30 days Quantity: 60 {QS} Refills: 2 Ordered: 23-Jun-2019 Javi Nolasco LPN Start : 23-Jun-2019 Active Start: 06-23-2019 NovoFine Autocov er 30G X 8 MM Miscellaneous 1 (one) Each as directed daily for 0 days Quantity: 90 {Each} Refills: 0 Ordered: 07-Jul-2019 Javi Nolasco LPN Start : 07-Jul-2019 Active Start: 07-07-2019 OneTouch Verio I n Vitro Strip 1 (one) Each test bid for 30 days Quantity: 60 {Each} Refills: 0 Ordered: 23-Jun-2019 Javi Nolasco LPN Start : 23-Jun-2019 End : 23-Jul-2019 Inactive Start: 06-23-2019 End: 07-23-2019 Lancet Device Miscellaneous 1 (one) device bid for 30 days Quantity: 60 {QS} Refills: 2 Ordered: 23-Jun-2019 Javi Nolasco LPN Start : 23-Jun-2019 Active Start: 06-23-2019 NovoFine Autocov er 30G X 8 MM Miscellaneous 1 (one) Each as directed daily for 0 days Quantity: 90 {Each} Refills: 0 Ordered: 07-Jul-2019 Javi Nolasco LPN Start : 07-Jul-2019 Active Start: 07-07-2019 OneTouch Verio I n Vitro Strip 1 (one) Each test bid for 30 days Quantity: 60 {Each} Refills: 0 Ordered: 23-Jun-2019 Javi Nolasco LPN Start : 23-Jun-2019 End : 23-Jul-2019 Inactive Start: 06-23-2019 End: 07-23-2019 Lancet Device Miscellaneous 1 (one) device bid for 30 days Quantity: 60 {QS} Refills: 2 Ordered: 23-Jun-2019 Javi Nolasco LPN Start : 23-Jun-2019 Active Start: 06-23-2019 NovoFine Autocov er 30G X 8 MM Miscellaneous 1 (one) Each as directed daily for 0 days Quantity: 90 {Each} Refills: 0 Ordered: 07-Jul-2019 Javi Nolasco LPN Start : 07-Jul-2019 Active Start: 07-07-2019 OneTouch Verio I n Vitro Strip 1 (one) Each test bid for 30 days Quantity: 60 {Each} Refills: 0 Ordered: 23-Jun-2019 Javi Nolasco LPN Start : 23-Jun-2019 End : 23-Jul-2019 Inactive Start: 06-23-2019 End: 07-23-2019 Lancet Device Miscellaneous 1 (one) device bid for 30 days Quantity: 60 {QS} Refills: 2 Ordered: 23-Jun-2019 Javi Nolasco LPN Start : 23-Jun-2019 Active Start: 06-23-2019 NovoFine Autocov er 30G X 8 MM Miscellaneous 1 (one) Each as directed daily for 0 days Quantity: 90 {Each} Refills: 0 Ordered: 07-Jul-2019 Javi Nolasco LPN Start : 07-Jul-2019 Active Start: 07-07-2019 OneTouch Verio I n Vitro Strip 1 (one) Each test bid for 30 days Quantity: 60 {Each} Refills: 0 Ordered: 23-Jun-2019 Javi Nolasco LPN Start : 23-Jun-2019 End : 23-Jul-2019 Inactive Start: 06-23-2019 End: 07-23-2019 Lancet Device Miscellaneous 1 (one) device bid for 30 days Quantity: 60 {QS} Refills: 2 Ordered: 23-Jun-2019 Javi Villanueva LPN Start : 23-Jun-2019 Active Start: 06-23-2019 NovoFine Autocov er 30G X 8 MM Miscellaneous 1 (one) Each as directed daily for 0 days Quantity: 90 {Each} Refills: 0 Ordered: 07-Jul-2019 Javi Villanueva LPN Start : 07-Jul-2019 Active Start: 07-07-2019 OneTouch Verio I n Vitro Strip 1 (one) Each test bid for 30 days Quantity: 60 {Each} Refills: 0 Ordered: 23-Jun-2019 Javi Villanueva LPN Start : 23-Jun-2019 End : 23-Jul-2019 Inactive Start: 06-23-2019 End: 07-23-2019 Lancet Device Miscellaneous 1 (one) device bid for 30 days Quantity: 60 {QS} Refills: 2 Ordered: 23-Jun-2019 Javi Villanueva LPN Start : 23-Jun-2019 Active Start: 06-23-2019 NovoFine Autocov er 30G X 8 MM Miscellaneous 1 (one) Each as directed daily for 0 days Quantity: 90 {Each} Refills: 0 Ordered: 07-Jul-2019 Rich BARRERAJavi Aquino Start : 07-Jul-2019 Active Start: 07-07-2019 OneTouch Verio I n Vitro Strip 1 (one) Each test bid for 30 days Quantity: 60 {Each} Refills: 0 Ordered: 23-Jun-2019 Rich KNOXJavi Start : 23-Jun-2019 End : 23-Jul-2019 Inactive Start: 06-23-2019 End: 07-23-2019 Lancet Device Miscellaneous 1 (one) device bid for 30 days Quantity: 60 {QS} Refills: 2 Ordered: 23-Jun-2019 Rich KNOXJavi Start : 23-Jun-2019 Active Start: 06-23-2019 NovoFine Autocov er 30G X 8 MM Miscellaneous 1 (one) Each as directed daily for 0 days Quantity: 90 {Each} Refills: 0 Ordered: 07-Jul-2019 Rich KNOXJavi Start : 07-Jul-2019 Active Start: 07-07-2019 OneTouch Verio I n Vitro Strip 1 (one) Each test bid for 30 days Quantity: 60 {Each} Refills: 0 Ordered: 23-Jun-2019 Rich KNOXJavi Start : 23-Jun-2019 End : 23-Jul-2019 Inactive Start: 06-23-2019 End: 07-23-2019 Lancet Device Miscellaneous 1 (one) device bid for 30 days Quantity: 60 {QS} Refills: 2 Ordered: 23-Jun-2019 Rich KNOXJavi Start : 23-Jun-2019 Active Start: 06-23-2019 NovoFine Autocov er 30G X 8 MM Miscellaneous 1 (one) Each as directed daily for 0 days Quantity: 90 {Each} Refills: 0 Ordered: 07-Jul-2019 Rich KNOXJavi Start : 07-Jul-2019 Active Start: 07-07-2019 OneTouch Verio I n Vitro Strip 1 (one) Each test bid for 30 days Quantity: 60 {Each} Refills: 0 Ordered: 23-Jun-2019 Rich KNOXJavi Start : 23-Jun-2019 End : 23-Jul-2019 Inactive Start: 06-23-2019 End: 07-23-2019 Lancet Device Miscellaneous 1 (one) device bid for 30 days Quantity: 60 {QS} Refills: 2 Ordered: 23-Jun-2019 Rich AUTOMOTIVE SERVICE MANAGERJavi Aquino Start : 23-Jun-2019 Active Start: 06-23-2019 NovoFine Autocov er 30G X 8 MM Miscellaneous 1 (one) Each as directed daily for 0 days Quantity: 90 {Each} Refills: 0 Ordered: 07-Jul-2019 Rich AUTOMOTIVE SERVICE MANAGERJavi Aquino Start : 07-Jul-2019 Active Start: 07-07-2019 OneTouch Verio I n Vitro Strip 1 (one) Each test bid for 30 days Quantity: 60 {Each} Refills: 0 Ordered: 23-Jun-2019 Rich KNOXJavi Start : 23-Jun-2019 End : 23-Jul-2019 Inactive Start: 06-23-2019 End: 07-23-2019 Lancet Device Miscellaneous 1 (one) device bid for 30 days Quantity: 60 {QS} Refills: 2 Ordered: 23-Jun-2019 Rich KNOXJavi Start : 23-Jun-2019 Active Start: 06-23-2019 NovoFine Autocov er 30G X 8 MM Miscellaneous 1 (one) Each as directed daily for 0 days Quantity: 90 {Each} Refills: 0 Ordered: 07-Jul-2019 Rich KNOXJavi Start : 07-Jul-2019 Active Start: 07-07-2019 OneTouch Verio I n Vitro Strip 1 (one) Each test bid for 30 days Quantity: 60 {Each} Refills: 0 Ordered: 23-Jun-2019 Rich KNOXJavi Start : 23-Jun-2019 End : 23-Jul-2019 Inactive Start: 06-23-2019 End: 07-23-2019 Lancet Device Miscellaneous 1 (one) device bid for 30 days Quantity: 60 {QS} Refills: 2 Ordered: 23-Jun-2019 Rich KNOXJavi Start : 23-Jun-2019 Active Start: 06-23-2019 NovoFine Autocov er 30G X 8 MM Miscellaneous 1 (one) Each as directed daily for 0 days Quantity: 90 {Each} Refills: 0 Ordered: 07-Jul-2019 Rich KNOXJavi Start : 07-Jul-2019 Active Start: 07-07-2019 OneTouch Verio I n Vitro Strip 1 (one) Each test bid for 30 days Quantity: 60 {Each} Refills: 0 Ordered: 23-Jun-2019 Javi Villanueva LPN Start : 23-Jun-2019 End : 23-Jul-2019 Inactive Start: 06-23-2019 End: 07-23-2019 Lancet Device Miscellaneous 1 (one) device bid for 30 days Quantity: 60 {QS} Refills: 2 Ordered: 23-Jun-2019 Javi Villanueva LPN Start : 23-Jun-2019 Active Start: 06-23-2019 NovoFine Autocov er 30G X 8 MM Miscellaneous 1 (one) Each as directed daily for 0 days Quantity: 90 {Each} Refills: 0 Ordered: 25-Mar-2020 Ciesa DRAFTER ELECTRICAL, Sailaja Ciesa DRAFTER ELECTRICAL, Sailaja Start : 25-Mar-2020 Active Start: 03-25-2020 OneTouch Verio I n Vitro Strip 1 (one) Each test bid for 30 days Quantity: 60 {Each} Refills: 0 Ordered: 23-Jun-2019 Javi Villanueva LPN Start : 23-Jun-2019 End : 23-Jul-2019 Inactive Start: 06-23-2019 End: 07-23-2019 Lancet Device Miscellaneous 1 (one) device bid for 30 days Quantity: 60 {QS} Refills: 2 Ordered: 23-Jun-2019 Javi Nolasco LPN Start : 23-Jun-2019 Active Start: 06-23-2019 NovoFine Autocov er 30G X 8 MM Miscellaneous 1 (one) Each as directed daily for 0 days Quantity: 90 {Each} Refills: 0 Ordered: 07-Jul-2019 Javi Nolasco LPN Start : 07-Jul-2019 Active Start: 07-07-2019 OneTouch Verio I n Vitro Strip 1 (one) Each test bid for 30 days Quantity: 60 {Each} Refills: 0 Ordered: 23-Jun-2019 Javi Nolasco LPN Start : 23-Jun-2019 End : 23-Jul-2019 Inactive Start: 06-23-2019 End: 07-23-2019 Lancet Device Miscellaneous 1 (one) device bid for 30 days Quantity: 60 {QS} Refills: 2 Ordered: 23-Jun-2019 Javi Villanueva LPN Start : 23-Jun-2019 Active Start: 06-23-2019 NovoFine Autocov er 30G X 8 MM Miscellaneous 1 (one) Each as directed daily for 0 days Quantity: 90 {Each} Refills: 0 Ordered: 25-Mar-2020 Ciesa DRAFTER ELECTRICAL, Isabel Wilson DRAFTER ELECTRICAL, Sailaja Start : 25-Mar-2020 Active Start: 03-25-2020 OneTouch Verio I n Vitro Strip 1 (one) Each test bid for 30 days Quantity: 60 {Each} Refills: 0 Ordered: 23-Jun-2019 Rich KNOX Javi Start : 23-Jun-2019 End : 23-Jul-2019 Inactive Start: 06-23-2019 End: 07-23-2019 Lancet Device Miscellaneous 1 (one) device bid for 30 days Quantity: 60 {QS} Refills: 2 Ordered: 23-Jun-2019 Rich KNOXJavi Start : 23-Jun-2019 Active Start: 06-23-2019 NovoFine Autocov er 30G X 8 MM Miscellaneous 1 (one) Each as directed daily for 0 days Quantity: 90 {Each} Refills: 0 Ordered: 25-Mar-2020 Citanikaa DRAFTER ELECTRICAL, Sailaja Citanikaa DRAFTER ELECTRICAL, Sailaja Start : 25-Mar-2020 Active Start: 03-25-2020 NovoTwist 32G X 5 MM Miscellaneous 1 (one) Each as directed for 90 days Quantity: 90 {Each} Refills: 3 Ordered: 24-May-2020 Terella DRAFTER ELECTRICAL, Sailaja Terella DRAFTER ELECTRICAL, Sailaja Start : 24-May-2020 Active Comments: Mail order. Start: 05-24-2020 Clinical Notes 10-03-2020 to 09-17-2021 Telephone Encounter - Arthur Valdez - 09/17/2021 1:56 PM EDT Note Date & Type Note Facility 09-17-2021 Miscellaneous Notes Phoned Mr. Willis to schedule yearly carotid ultrasound. Pt is not interested in testing or office visits at this time. He will call back if he decides to schedule. documented in this encounter [facility] 10-03-2020 Note HNO ID: [id number] Author: Carter Walter MD Service: ? Author Type: Physician Type: Progress Notes Filed: 10/03/2020 9:54 AM Note Text: This gentleman was seen back today in follow-up of his carotid artery disease. He has had a good year without any hospitalizations and no new medical diagnoses. He states that he has been asymptomatic with regard to his carotid disease and specifically denies any episodes of amaurosis fugax facial weakness facial numbness difficulty swallowing difficulty speaking arm or leg weakness or numbness. He has been completely asymptomatic from his carotid disease and continues on an antiplatelet agent and a statin agent for this. His current ultrasound shows that he has 60 to 79% stenosis of his internal carotid artery on the current study. Last year with a similar finding on his ultrasound we did a CT scan that showed him to have a 50 to 60% stenosis based on the velocities at that time. The current velocities are actually somewhat lower in the left internal carotid artery as they were 240 a year ago and they are only 220 at this point in time. With that being the case I think that the studies are very similar and that likely the patient has had no significant progression of disease since his CT scan last year. I tell him that he should continue on his antiplatelet and statin therapy and remind him that should any of the symptoms that we discussed occur he should contact us immediately as this does oftentimes change our planning and our approach to his carotid artery disease. Patient seems satisfied with this is going to continue on his aspirin and statin agent and he is going to get an ultrasound in 1 year and follow-up with us in the [place] office after that. This note was generated with [employer] dictation software. It may contain incorrect words, spelling, and punctuation and that were not noted in review of the chart prior to signing. I spent 15 minutes in the visit, with more than 50% of the total [id number] time of the visit in counseling / coordination of care. The patient is currently taking a statin: Yes The patient is currently taking aspirin: Yes [facility]; [facility] Work Phone: Instructions* Name Dates Details Patient Instructions Indication:Carotid stenosis, left Start:22-Jul-2020 Instruction Type:Provider Instructions for Treatment How to Access Health Informa tion Online using Patient Portal and 3rd [employer] Apps Indication:Diabetes mellitus type 2, uncontrolled (Renamed from Uncontrolled type 2 diabetes mellitus) Start:22-Jul-2020 Instruction Type:Patient Education Patient Instructions Indication:BMI 34.0-34.9,adult Start:15-Apr-2020 Instruction Type:Provider Instructions for Treatment How to Access Health Informa tion Online using Patient Portal and 3rd [employer] Apps Indication:BMI 34.0-34.9,adult Start:15-Apr-2020 Instruction Type:Patient Education How to access health informa tion online Indication:Diabetes mellitus type II, controlled, with no complications (Renamed from Controlled type 2 diabetes mellitus without complication) Start:10-Jan-2020 Instruction Type:Patient Education How to access health informa tion online - Detail Indication:Diabetes mellitus type II, controlled, with no complications (Renamed from Controlled type 2 diabetes mellitus without complication) Start:10-Jan-2020 Instruction Type:Patient Education Patient Instructions Indication:Diabetes mellitus type II, controlled, with no complications (Renamed from Controlled type 2 diabetes mellitus without complication) Start:10-Jan-2020 Instruction Type:Provider Instructions for Treatment How to access health informa tion online Indication:Diabetes mellitus type 2, uncontrolled (Renamed from Uncontrolled type 2 diabetes mellitus) Start:25-Sep-2019 Instruction Type:Patient Education How to access health informa tion online - Detail Indication:Diabetes mellitus type 2, uncontrolled (Renamed from Uncontrolled type 2 diabetes mellitus) Start:25-Sep-2019 Instruction Type:Patient Education Patient Instructions Indication:Diabetes mellitus type 2, uncontrolled (Renamed from Uncontrolled type 2 diabetes mellitus) Start:25-Sep-2019 Instruction Type:Provider Instructions for Treatment How to access health informa tion online Indication:BMI 33.0-33.9,adult Start:07-Jul-2019 Instruction Type:Patient Education How to access health informa tion online - Detail Indication:BMI 33.0-33.9,adult Start:07-Jul-2019 Instruction Type:Patient Education Patient Instructions Indication:Cerebral microvascular disease Start:07-Jul-2019 Instruction Type:Provider Instructions for Treatment How to access health informa tion online Indication:Former smoker, stopped smoking in distant past Start:20-Jun-2019 Instruction Type:Patient Education How to access health informa tion online - Detail Indication:Former smoker, stopped smoking in distant past Start:20-Jun-2019 Instruction Type:Patient Education Patient Instructions Indication:Former smoker, stopped smoking in distant past Start:20-Jun-2019 Instruction Type:Provider Instructions for Treatment How to access health informa tion online Indication:Nonsmoker Start:16-Jun-2019 Instruction Type:Patient Education How to access health informa tion online - Detail Indication:Nonsmoker Start:16-Jun-2019 Instruction Type:Patient Education Patient Instructions Indication:Nonsmoker Start:16-Jun-2019 Instruction Type:Provider Instructions for Treatment [facility] Work Phone: Instructions* Name Dates Details Patient Instructions Indication:Carotid stenosis, left Start:22-Jul-2020 Instruction Type:Provider Instructions for Treatment How to Access Health Informa tion Online using Patient Portal and [employer] Apps Indication:Diabetes mellitus type 2, uncontrolled (Renamed from Uncontrolled type 2 diabetes mellitus) Start:22-Jul-2020 Instruction Type:Patient Education Patient Instructions Indication:BMI 34.0-34.9,adult Start:15-Apr-2020 Instruction Type:Provider Instructions for Treatment How to Access Health Informa tion Online using Patient Portal and [employer] Apps Indication:BMI 34.0-34.9,adult Start:15-Apr-2020 Instruction Type:Patient Education How to access health informa tion online Indication:Diabetes mellitus type II, controlled, with no complications (Renamed from Controlled type 2 diabetes mellitus without complication) Start:10-Jan-2020 Instruction Type:Patient Education How to access health informa tion online - Detail Indication:Diabetes mellitus type II, controlled, with no complications (Renamed from Controlled type 2 diabetes mellitus without complication) Start:10-Jan-2020 Instruction Type:Patient Education Patient Instructions Indication:Diabetes mellitus type II, controlled, with no complications (Renamed from Controlled type 2 diabetes mellitus without complication) Start:10-Jan-2020 Instruction Type:Provider Instructions for Treatment How to access health informa tion online Indication:Diabetes mellitus type 2, uncontrolled (Renamed from Uncontrolled type 2 diabetes mellitus) Start:25-Sep-2019 Instruction Type:Patient Education How to access health informa tion online - Detail Indication:Diabetes mellitus type 2, uncontrolled (Renamed from Uncontrolled type 2 diabetes mellitus) Start:25-Sep-2019 Instruction Type:Patient Education Patient Instructions Indication:Diabetes mellitus type 2, uncontrolled (Renamed from Uncontrolled type 2 diabetes mellitus) Start:25-Sep-2019 Instruction Type:Provider Instructions for Treatment How to access health informa tion online Indication:BMI 33.0-33.9,adult Start:07-Jul-2019 Instruction Type:Patient Education How to access health informa tion online - Detail Indication:BMI 33.0-33.9,adult Start:07-Jul-2019 Instruction Type:Patient Education Patient Instructions Indication:Cerebral microvascular disease Start:07-Jul-2019 Instruction Type:Provider Instructions for Treatment How to access health informa tion online Indication:Former smoker, stopped smoking in distant past Start:20-Jun-2019 Instruction Type:Patient Education How to access health informa tion online - Detail Indication:Former smoker, stopped smoking in distant past Start:20-Jun-2019 Instruction Type:Patient Education Patient Instructions Indication:Former smoker, stopped smoking in distant past Start:20-Jun-2019 Instruction Type:Provider Instructions for Treatment How to access health informa tion online Indication:Nonsmoker Start:16-Jun-2019 Instruction Type:Patient Education How to access health informa tion online - Detail Indication:Nonsmoker Start:16-Jun-2019 Instruction Type:Patient Education Patient Instructions Indication:Nonsmoker Start:16-Jun-2019 Instruction Type:Provider Instructions for Treatment [facility]; [facility] Work Phone: Instructions* Name Dates Details Patient Instructions Indication:Carotid stenosis, left Start:22-Jul-2020 Instruction Type:Provider Instructions for Treatment How to Access Health Informa tion Online using Patient Portal and [employer]rd [employer] Apps Indication:Diabetes mellitus type 2, uncontrolled (Renamed from Uncontrolled type 2 diabetes mellitus) Start:22-Jul-2020 Instruction Type:Patient Education Patient Instructions Indication:BMI 34.0-34.9,adult Start:15-Apr-2020 Instruction Type:Provider Instructions for Treatment How to Access Health Informa tion Online using Patient Portal and [employer]rd [employer] Apps Indication:BMI 34.0-34.9,adult Start:15-Apr-2020 Instruction Type:Patient Education How to access health informa tion online Indication:Diabetes mellitus type II, controlled, with no complications (Renamed from Controlled type 2 diabetes mellitus without complication) Start:10-Jan-2020 Instruction Type:Patient Education How to access health informa tion online - Detail Indication:Diabetes mellitus type II, controlled, with no complications (Renamed from Controlled type 2 diabetes mellitus without complication) Start:10-Jan-2020 Instruction Type:Patient Education Patient Instructions Indication:Diabetes mellitus type II, controlled, with no complications (Renamed from Controlled type 2 diabetes mellitus without complication) Start:10-Jan-2020 Instruction Type:Provider Instructions for Treatment How to access health informa tion online Indication:Diabetes mellitus type 2, uncontrolled (Renamed from Uncontrolled type 2 diabetes mellitus) Start:25-Sep-2019 Instruction Type:Patient Education How to access health informa tion online - Detail Indication:Diabetes mellitus type 2, uncontrolled (Renamed from Uncontrolled type 2 diabetes mellitus) Start:25-Sep-2019 Instruction Type:Patient Education Patient Instructions Indication:Diabetes mellitus type 2, uncontrolled (Renamed from Uncontrolled type 2 diabetes mellitus) Start:25-Sep-2019 Instruction Type:Provider Instructions for Treatment How to access health informa tion online Indication:BMI 33.0-33.9,adult Start:07-Jul-2019 Instruction Type:Patient Education How to access health informa tion online - Detail Indication:BMI 33.0-33.9,adult Start:07-Jul-2019 Instruction Type:Patient Education Patient Instructions Indication:Cerebral microvascular disease Start:07-Jul-2019 Instruction Type:Provider Instructions for Treatment How to access health informa tion online Indication:Former smoker, stopped smoking in distant past Start:20-Jun-2019 Instruction Type:Patient Education How to access health informa tion online - Detail Indication:Former smoker, stopped smoking in distant past Start:20-Jun-2019 Instruction Type:Patient Education Patient Instructions Indication:Former smoker, stopped smoking in distant past Start:20-Jun-2019 Instruction Type:Provider Instructions for Treatment How to access health informa tion online Indication:Nonsmoker Start:16-Jun-2019 Instruction Type:Patient Education How to access health informa tion online - Detail Indication:Nonsmoker Start:16-Jun-2019 Instruction Type:Patient Education Patient Instructions Indication:Nonsmoker Start:16-Jun-2019 Instruction Type:Provider Instructions for Treatment [facility]; [facility] Work Phone: Instructions* Name Dates Details Patient Instructions Indication:Carotid stenosis, left Start:22-Jul-2020 Instruction Type:Provider Instructions for Treatment How to Access Health Informa tion Online using Patient Portal and [employer] Apps Indication:Diabetes mellitus type 2, uncontrolled (Renamed from Uncontrolled type 2 diabetes mellitus) Start:22-Jul-2020 Instruction Type:Patient Education Patient Instructions Indication:BMI 34.0-34.9,adult Start:15-Apr-2020 Instruction Type:Provider Instructions for Treatment How to Access Health Informa tion Online using Patient Portal and [employer]rd [employer] Apps Indication:BMI 34.0-34.9,adult Start:15-Apr-2020 Instruction Type:Patient Education How to access health informa tion online Indication:Diabetes mellitus type II, controlled, with no complications (Renamed from Controlled type 2 diabetes mellitus without complication) Start:10-Jan-2020 Instruction Type:Patient Education How to access health informa tion online - Detail Indication:Diabetes mellitus type II, controlled, with no complications (Renamed from Controlled type 2 diabetes mellitus without complication) Start:10-Jan-2020 Instruction Type:Patient Education Patient Instructions Indication:Diabetes mellitus type II, controlled, with no complications (Renamed from Controlled type 2 diabetes mellitus without complication) Start:10-Jan-2020 Instruction Type:Provider Instructions for Treatment How to access health informa tion online Indication:Diabetes mellitus type 2, uncontrolled (Renamed from Uncontrolled type 2 diabetes mellitus) Start:25-Sep-2019 Instruction Type:Patient Education How to access health informa tion online - Detail Indication:Diabetes mellitus type 2, uncontrolled (Renamed from Uncontrolled type 2 diabetes mellitus) Start:25-Sep-2019 Instruction Type:Patient Education Patient Instructions Indication:Diabetes mellitus type 2, uncontrolled (Renamed from Uncontrolled type 2 diabetes mellitus) Start:25-Sep-2019 Instruction Type:Provider Instructions for Treatment How to access health informa tion online Indication:BMI 33.0-33.9,adult Start:07-Jul-2019 Instruction Type:Patient Education How to access health informa tion online - Detail Indication:BMI 33.0-33.9,adult Start:07-Jul-2019 Instruction Type:Patient Education Patient Instructions Indication:Cerebral microvascular disease Start:07-Jul-2019 Instruction Type:Provider Instructions for Treatment How to access health informa tion online Indication:Former smoker, stopped smoking in distant past Start:20-Jun-2019 Instruction Type:Patient Education How to access health informa tion online - Detail Indication:Former smoker, stopped smoking in distant past Start:20-Jun-2019 Instruction Type:Patient Education Patient Instructions Indication:Former smoker, stopped smoking in distant past Start:20-Jun-2019 Instruction Type:Provider Instructions for Treatment How to access health informa tion online Indication:Nonsmoker Start:16-Jun-2019 Instruction Type:Patient Education How to access health informa tion online - Detail Indication:Nonsmoker Start:16-Jun-2019 Instruction Type:Patient Education Patient Instructions Indication:Nonsmoker Start:16-Jun-2019 Instruction Type:Provider Instructions for Treatment [facility]; [facility] Work Phone: Instructions* Name Dates Details Patient Instructions Indication:Carotid stenosis, left Start:22-Jul-2020 Instruction Type:Provider Instructions for Treatment How to Access Health Informa tion Online using Patient Portal and [employer]rd [employer] Apps Indication:Diabetes mellitus type 2, uncontrolled (Renamed from Uncontrolled type 2 diabetes mellitus) Start:22-Jul-2020 Instruction Type:Patient Education Patient Instructions Indication:BMI 34.0-34.9,adult Start:15-Apr-2020 Instruction Type:Provider Instructions for Treatment How to Access Health Informa tion Online using Patient Portal and [employer] Apps Indication:BMI 34.0-34.9,adult Start:15-Apr-2020 Instruction Type:Patient Education How to access health informa tion online Indication:Diabetes mellitus type II, controlled, with no complications (Renamed from Controlled type 2 diabetes mellitus without complication) Start:10-Jan-2020 Instruction Type:Patient Education How to access health informa tion online - Detail Indication:Diabetes mellitus type II, controlled, with no complications (Renamed from Controlled type 2 diabetes mellitus without complication) Start:10-Jan-2020 Instruction Type:Patient Education Patient Instructions Indication:Diabetes mellitus type II, controlled, with no complications (Renamed from Controlled type 2 diabetes mellitus without complication) Start:10-Jan-2020 Instruction Type:Provider Instructions for Treatment How to access health informa tion online Indication:Diabetes mellitus type 2, uncontrolled (Renamed from Uncontrolled type 2 diabetes mellitus) Start:25-Sep-2019 Instruction Type:Patient Education How to access health informa tion online - Detail Indication:Diabetes mellitus type 2, uncontrolled (Renamed from Uncontrolled type 2 diabetes mellitus) Start:25-Sep-2019 Instruction Type:Patient Education Patient Instructions Indication:Diabetes mellitus type 2, uncontrolled (Renamed from Uncontrolled type 2 diabetes mellitus) Start:25-Sep-2019 Instruction Type:Provider Instructions for Treatment How to access health informa tion online Indication:BMI 33.0-33.9,adult Start:07-Jul-2019 Instruction Type:Patient Education How to access health informa tion online - Detail Indication:BMI 33.0-33.9,adult Start:07-Jul-2019 Instruction Type:Patient Education Patient Instructions Indication:Cerebral microvascular disease Start:07-Jul-2019 Instruction Type:Provider Instructions for Treatment How to access health informa tion online Indication:Former smoker, stopped smoking in distant past Start:20-Jun-2019 Instruction Type:Patient Education How to access health informa tion online - Detail Indication:Former smoker, stopped smoking in distant past Start:20-Jun-2019 Instruction Type:Patient Education Patient Instructions Indication:Former smoker, stopped smoking in distant past Start:20-Jun-2019 Instruction Type:Provider Instructions for Treatment How to access health informa tion online Indication:Nonsmoker Start:16-Jun-2019 Instruction Type:Patient Education How to access health informa tion online - Detail Indication:Nonsmoker Start:16-Jun-2019 Instruction Type:Patient Education Patient Instructions Indication:Nonsmoker Start:16-Jun-2019 Instruction Type:Provider Instructions for Treatment [facility]; [facility] Work Phone: Instructions* Name Dates Details Patient Instructions Indication:Carotid stenosis, left Start:22-Jul-2020 Instruction Type:Provider Instructions for Treatment How to Access Health Informa tion Online using Patient Portal and [employer]rd [employer] Apps Indication:Diabetes mellitus type 2, uncontrolled (Renamed from Uncontrolled type 2 diabetes mellitus) Start:22-Jul-2020 Instruction Type:Patient Education Patient Instructions Indication:BMI 34.0-34.9,adult Start:15-Apr-2020 Instruction Type:Provider Instructions for Treatment How to Access Health Informa tion Online using Patient Portal and [employer]rd [employer] Apps Indication:BMI 34.0-34.9,adult Start:15-Apr-2020 Instruction Type:Patient Education How to access health informa tion online Indication:Diabetes mellitus type II, controlled, with no complications (Renamed from Controlled type 2 diabetes mellitus without complication) Start:10-Jan-2020 Instruction Type:Patient Education How to access health informa tion online - Detail Indication:Diabetes mellitus type II, controlled, with no complications (Renamed from Controlled type 2 diabetes mellitus without complication) Start:10-Jan-2020 Instruction Type:Patient Education Patient Instructions Indication:Diabetes mellitus type II, controlled, with no complications (Renamed from Controlled type 2 diabetes mellitus without complication) Start:10-Jan-2020 Instruction Type:Provider Instructions for Treatment How to access health informa tion online Indication:Diabetes mellitus type 2, uncontrolled (Renamed from Uncontrolled type 2 diabetes mellitus) Start:25-Sep-2019 Instruction Type:Patient Education How to access health informa tion online - Detail Indication:Diabetes mellitus type 2, uncontrolled (Renamed from Uncontrolled type 2 diabetes mellitus) Start:25-Sep-2019 Instruction Type:Patient Education Patient Instructions Indication:Diabetes mellitus type 2, uncontrolled (Renamed from Uncontrolled type 2 diabetes mellitus) Start:25-Sep-2019 Instruction Type:Provider Instructions for Treatment How to access health informa tion online Indication:BMI 33.0-33.9,adult Start:07-Jul-2019 Instruction Type:Patient Education How to access health informa tion online - Detail Indication:BMI 33.0-33.9,adult Start:07-Jul-2019 Instruction Type:Patient Education Patient Instructions Indication:Cerebral microvascular disease Start:07-Jul-2019 Instruction Type:Provider Instructions for Treatment How to access health informa tion online Indication:Former smoker, stopped smoking in distant past Start:20-Jun-2019 Instruction Type:Patient Education How to access health informa tion online - Detail Indication:Former smoker, stopped smoking in distant past Start:20-Jun-2019 Instruction Type:Patient Education Patient Instructions Indication:Former smoker, stopped smoking in distant past Start:20-Jun-2019 Instruction Type:Provider Instructions for Treatment How to access health informa tion online Indication:Nonsmoker Start:16-Jun-2019 Instruction Type:Patient Education How to access health informa tion online - Detail Indication:Nonsmoker Start:16-Jun-2019 Instruction Type:Patient Education Patient Instructions Indication:Nonsmoker Start:16-Jun-2019 Instruction Type:Provider Instructions for Treatment [facility]; [facility] Work Phone: Instructions* Name Dates Details Patient Instructions Indication:Former smoker Start:25-Sep-2020 Instruction Type:Provider Instructions for Treatment How to Access Health Informa tion Online using Patient Portal and [employer] Apps Indication:Former smoker Start:25-Sep-2020 Instruction Type:Patient Education Patient Instructions Indication:Carotid stenosis, left Start:22-Jul-2020 Instruction Type:Provider Instructions for Treatment How to Access Health Informa tion Online using Patient Portal and [employer] Apps Indication:Diabetes mellitus type 2, uncontrolled (Renamed from Uncontrolled type 2 diabetes mellitus) Start:22-Jul-2020 Instruction Type:Patient Education Patient Instructions Indication:BMI 34.0-34.9,adult Start:15-Apr-2020 Instruction Type:Provider Instructions for Treatment How to Access Health Informa tion Online using Patient Portal and [employer]rd [employer] Apps Indication:BMI 34.0-34.9,adult Start:15-Apr-2020 Instruction Type:Patient Education How to access health informa tion online Indication:Diabetes mellitus type II, controlled, with no complications (Renamed from Controlled type 2 diabetes mellitus without complication) Start:10-Jan-2020 Instruction Type:Patient Education How to access health informa tion online - Detail Indication:Diabetes mellitus type II, controlled, with no complications (Renamed from Controlled type 2 diabetes mellitus without complication) Start:10-Jan-2020 Instruction Type:Patient Education Patient Instructions Indication:Diabetes mellitus type II, controlled, with no complications (Renamed from Controlled type 2 diabetes mellitus without complication) Start:10-Jan-2020 Instruction Type:Provider Instructions for Treatment How to access health informa tion online Indication:Diabetes mellitus type 2, uncontrolled (Renamed from Uncontrolled type 2 diabetes mellitus) Start:25-Sep-2019 Instruction Type:Patient Education How to access health informa tion online - Detail Indication:Diabetes mellitus type 2, uncontrolled (Renamed from Uncontrolled type 2 diabetes mellitus) Start:25-Sep-2019 Instruction Type:Patient Education Patient Instructions Indication:Diabetes mellitus type 2, uncontrolled (Renamed from Uncontrolled type 2 diabetes mellitus) Start:25-Sep-2019 Instruction Type:Provider Instructions for Treatment How to access health informa tion online Indication:BMI 33.0-33.9,adult Start:07-Jul-2019 Instruction Type:Patient Education How to access health informa tion online - Detail Indication:BMI 33.0-33.9,adult Start:07-Jul-2019 Instruction Type:Patient Education Patient Instructions Indication:Cerebral microvascular disease Start:07-Jul-2019 Instruction Type:Provider Instructions for Treatment How to access health informa tion online Indication:Former smoker, stopped smoking in distant past Start:20-Jun-2019 Instruction Type:Patient Education How to access health informa tion online - Detail Indication:Former smoker, stopped smoking in distant past Start:20-Jun-2019 Instruction Type:Patient Education Patient Instructions Indication:Former smoker, stopped smoking in distant past Start:20-Jun-2019 Instruction Type:Provider Instructions for Treatment How to access health informa tion online Indication:Nonsmoker Start:16-Jun-2019 Instruction Type:Patient Education How to access health informa tion online - Detail Indication:Nonsmoker Start:16-Jun-2019 Instruction Type:Patient Education Patient Instructions Indication:Nonsmoker Start:16-Jun-2019 Instruction Type:Provider Instructions for Treatment [facility]; [facility] Work Phone: Instructions* Name Dates Details Patient Instructions Indication:Former smoker Start:25-Sep-2020 Instruction Type:Provider Instructions for Treatment How to Access Health Informa tion Online using Patient Portal and [employer] Apps Indication:Former smoker Start:25-Sep-2020 Instruction Type:Patient Education Patient Instructions Indication:Carotid stenosis, left Start:22-Jul-2020 Instruction Type:Provider Instructions for Treatment How to Access Health Informa tion Online using Patient Portal and [employer] Apps Indication:Diabetes mellitus type 2, uncontrolled (Renamed from Uncontrolled type 2 diabetes mellitus) Start:22-Jul-2020 Instruction Type:Patient Education Patient Instructions Indication:BMI 34.0-34.9,adult Start:15-Apr-2020 Instruction Type:Provider Instructions for Treatment How to Access Health Informa tion Online using Patient Portal and [employer]rd [employer] Apps Indication:BMI 34.0-34.9,adult Start:15-Apr-2020 Instruction Type:Patient Education How to access health informa tion online Indication:Diabetes mellitus type II, controlled, with no complications (Renamed from Controlled type 2 diabetes mellitus without complication) Start:10-Jan-2020 Instruction Type:Patient Education How to access health informa tion online - Detail Indication:Diabetes mellitus type II, controlled, with no complications (Renamed from Controlled type 2 diabetes mellitus without complication) Start:10-Jan-2020 Instruction Type:Patient Education Patient Instructions Indication:Diabetes mellitus type II, controlled, with no complications (Renamed from Controlled type 2 diabetes mellitus without complication) Start:10-Jan-2020 Instruction Type:Provider Instructions for Treatment How to access health informa tion online Indication:Diabetes mellitus type 2, uncontrolled (Renamed from Uncontrolled type 2 diabetes mellitus) Start:25-Sep-2019 Instruction Type:Patient Education How to access health informa tion online - Detail Indication:Diabetes mellitus type 2, uncontrolled (Renamed from Uncontrolled type 2 diabetes mellitus) Start:25-Sep-2019 Instruction Type:Patient Education Patient Instructions Indication:Diabetes mellitus type 2, uncontrolled (Renamed from Uncontrolled type 2 diabetes mellitus) Start:25-Sep-2019 Instruction Type:Provider Instructions for Treatment How to access health informa tion online Indication:BMI 33.0-33.9,adult Start:07-Jul-2019 Instruction Type:Patient Education How to access health informa tion online - Detail Indication:BMI 33.0-33.9,adult Start:07-Jul-2019 Instruction Type:Patient Education Patient Instructions Indication:Cerebral microvascular disease Start:07-Jul-2019 Instruction Type:Provider Instructions for Treatment How to access health informa tion online Indication:Former smoker, stopped smoking in distant past Start:20-Jun-2019 Instruction Type:Patient Education How to access health informa tion online - Detail Indication:Former smoker, stopped smoking in distant past Start:20-Jun-2019 Instruction Type:Patient Education Patient Instructions Indication:Former smoker, stopped smoking in distant past Start:20-Jun-2019 Instruction Type:Provider Instructions for Treatment How to access health informa tion online Indication:Nonsmoker Start:16-Jun-2019 Instruction Type:Patient Education How to access health informa tion online - Detail Indication:Nonsmoker Start:16-Jun-2019 Instruction Type:Patient Education Patient Instructions Indication:Nonsmoker Start:16-Jun-2019 Instruction Type:Provider Instructions for Treatment [facility]; [facility] Work Phone: Instructions* Name Dates Details Patient Instructions Indication:Vitamin D deficiency Start:31-Jan-2021 Instruction Type:Provider Instructions for Treatment How to Access Health Informa tion Online using Patient Portal and [employer] Apps Indication:Diabetes mellitus type 2, uncontrolled (Renamed from Uncontrolled type 2 diabetes mellitus) Start:31-Jan-2021 Instruction Type:Patient Education Patient Instructions Indication:BMI 35.0-35.9,adult Start:28-Oct-2020 Instruction Type:Provider Instructions for Treatment How to Access Health Informa tion Online using Patient Portal and [employer] Apps Indication:BMI 35.0-35.9,adult Start:28-Oct-2020 Instruction Type:Patient Education Patient Instructions Indication:Former smoker Start:25-Sep-2020 Instruction Type:Provider Instructions for Treatment How to Access Health Informa tion Online using Patient Portal and [employer] Apps Indication:Former smoker Start:25-Sep-2020 Instruction Type:Patient Education Patient Instructions Indication:Carotid stenosis, left Start:22-Jul-2020 Instruction Type:Provider Instructions for Treatment How to Access Health Informa tion Online using Patient Portal and [employer] Apps Indication:Diabetes mellitus type 2, uncontrolled (Renamed from Uncontrolled type 2 diabetes mellitus) Start:22-Jul-2020 Instruction Type:Patient Education Patient Instructions Indication:BMI 34.0-34.9,adult Start:15-Apr-2020 Instruction Type:Provider Instructions for Treatment How to Access Health Informa tion Online using Patient Portal and [employer] Apps Indication:BMI 34.0-34.9,adult Start:15-Apr-2020 Instruction Type:Patient Education How to access health informa tion online Indication:Diabetes mellitus type II, controlled, with no complications (Renamed from Controlled type 2 diabetes mellitus without complication) Start:10-Jan-2020 Instruction Type:Patient Education How to access health informa tion online - Detail Indication:Diabetes mellitus type II, controlled, with no complications (Renamed from Controlled type 2 diabetes mellitus without complication) Start:10-Jan-2020 Instruction Type:Patient Education Patient Instructions Indication:Diabetes mellitus type II, controlled, with no complications (Renamed from Controlled type 2 diabetes mellitus without complication) Start:10-Jan-2020 Instruction Type:Provider Instructions for Treatment How to access health informa tion online Indication:Diabetes mellitus type 2, uncontrolled (Renamed from Uncontrolled type 2 diabetes mellitus) Start:25-Sep-2019 Instruction Type:Patient Education How to access health informa tion online - Detail Indication:Diabetes mellitus type 2, uncontrolled (Renamed from Uncontrolled type 2 diabetes mellitus) Start:25-Sep-2019 Instruction Type:Patient Education Patient Instructions Indication:Diabetes mellitus type 2, uncontrolled (Renamed from Uncontrolled type 2 diabetes mellitus) Start:25-Sep-2019 Instruction Type:Provider Instructions for Treatment How to access health informa tion online Indication:BMI 33.0-33.9,adult Start:07-Jul-2019 Instruction Type:Patient Education How to access health informa tion online - Detail Indication:BMI 33.0-33.9,adult Start:07-Jul-2019 Instruction Type:Patient Education Patient Instructions Indication:Cerebral microvascular disease Start:07-Jul-2019 Instruction Type:Provider Instructions for Treatment How to access health informa tion online Indication:Former smoker, stopped smoking in distant past Start:20-Jun-2019 Instruction Type:Patient Education How to access health informa tion online - Detail Indication:Former smoker, stopped smoking in distant past Start:20-Jun-2019 Instruction Type:Patient Education Patient Instructions Indication:Former smoker, stopped smoking in distant past Start:20-Jun-2019 Instruction Type:Provider Instructions for Treatment How to access health informa tion online Indication:Nonsmoker Start:16-Jun-2019 Instruction Type:Patient Education How to access health informa tion online - Detail Indication:Nonsmoker Start:16-Jun-2019 Instruction Type:Patient Education Patient Instructions Indication:Nonsmoker Start:16-Jun-2019 Instruction Type:Provider Instructions for Treatment [facility]; [facility] Work Phone: Instructions* Name Dates Details Patient Instructions Indication:Vitamin D deficiency Start:31-Jan-2021 Instruction Type:Provider Instructions for Treatment How to Access Health Informa tion Online using Patient Portal and [employer]rd [employer] Apps Indication:Diabetes mellitus type 2, uncontrolled (Renamed from Uncontrolled type 2 diabetes mellitus) Start:31-Jan-2021 Instruction Type:Patient Education Patient Instructions Indication:BMI 35.0-35.9,adult Start:28-Oct-2020 Instruction Type:Provider Instructions for Treatment How to Access Health Informa tion Online using Patient Portal and [employer]rd [employer] Apps Indication:BMI 35.0-35.9,adult Start:28-Oct-2020 Instruction Type:Patient Education Patient Instructions Indication:Former smoker Start:25-Sep-2020 Instruction Type:Provider Instructions for Treatment How to Access Health Informa tion Online using Patient Portal and [employer]rd [employer] Apps Indication:Former smoker Start:25-Sep-2020 Instruction Type:Patient Education Patient Instructions Indication:Carotid stenosis, left Start:22-Jul-2020 Instruction Type:Provider Instructions for Treatment How to Access Health Informa tion Online using Patient Portal and [employer]rd [employer] Apps Indication:Diabetes mellitus type 2, uncontrolled (Renamed from Uncontrolled type 2 diabetes mellitus) Start:22-Jul-2020 Instruction Type:Patient Education Patient Instructions Indication:BMI 34.0-34.9,adult Start:15-Apr-2020 Instruction Type:Provider Instructions for Treatment How to Access Health Informa tion Online using Patient Portal and [employer]rd [employer] Apps Indication:BMI 34.0-34.9,adult Start:15-Apr-2020 Instruction Type:Patient Education How to access health informa tion online Indication:Diabetes mellitus type II, controlled, with no complications (Renamed from Controlled type 2 diabetes mellitus without complication) Start:10-Jan-2020 Instruction Type:Patient Education How to access health informa tion online - Detail Indication:Diabetes mellitus type II, controlled, with no complications (Renamed from Controlled type 2 diabetes mellitus without complication) Start:10-Jan-2020 Instruction Type:Patient Education Patient Instructions Indication:Diabetes mellitus type II, controlled, with no complications (Renamed from Controlled type 2 diabetes mellitus without complication) Start:10-Jan-2020 Instruction Type:Provider Instructions for Treatment How to access health informa tion online Indication:Diabetes mellitus type 2, uncontrolled (Renamed from Uncontrolled type 2 diabetes mellitus) Start:25-Sep-2019 Instruction Type:Patient Education How to access health informa tion online - Detail Indication:Diabetes mellitus type 2, uncontrolled (Renamed from Uncontrolled type 2 diabetes mellitus) Start:25-Sep-2019 Instruction Type:Patient Education Patient Instructions Indication:Diabetes mellitus type 2, uncontrolled (Renamed from Uncontrolled type 2 diabetes mellitus) Start:25-Sep-2019 Instruction Type:Provider Instructions for Treatment How to access health informa tion online Indication:BMI 33.0-33.9,adult Start:07-Jul-2019 Instruction Type:Patient Education How to access health informa tion online - Detail Indication:BMI 33.0-33.9,adult Start:07-Jul-2019 Instruction Type:Patient Education Patient Instructions Indication:Cerebral microvascular disease Start:07-Jul-2019 Instruction Type:Provider Instructions for Treatment How to access health informa tion online Indication:Former smoker, stopped smoking in distant past Start:20-Jun-2019 Instruction Type:Patient Education How to access health informa tion online - Detail Indication:Former smoker, stopped smoking in distant past Start:20-Jun-2019 Instruction Type:Patient Education Patient Instructions Indication:Former smoker, stopped smoking in distant past Start:20-Jun-2019 Instruction Type:Provider Instructions for Treatment How to access health informa tion online Indication:Nonsmoker Start:16-Jun-2019 Instruction Type:Patient Education How to access health informa tion online - Detail Indication:Nonsmoker Start:16-Jun-2019 Instruction Type:Patient Education Patient Instructions Indication:Nonsmoker Start:16-Jun-2019 Instruction Type:Provider Instructions for Treatment [facility]; [facility] Work Phone: Instructions* Name Dates Details Patient Instructions Indication:Vitamin D deficiency Start:31-Jan-2021 Instruction Type:Provider Instructions for Treatment How to Access Health Informa tion Online using Patient Portal and [employer]rd [employer] Apps Indication:Diabetes mellitus type 2, uncontrolled (Renamed from Uncontrolled type 2 diabetes mellitus) Start:31-Jan-2021 Instruction Type:Patient Education Patient Instructions Indication:BMI 35.0-35.9,adult Start:28-Oct-2020 Instruction Type:Provider Instructions for Treatment How to Access Health Informa tion Online using Patient Portal and [employer]rd [employer] Apps Indication:BMI 35.0-35.9,adult Start:28-Oct-2020 Instruction Type:Patient Education Patient Instructions Indication:Former smoker Start:25-Sep-2020 Instruction Type:Provider Instructions for Treatment How to Access Health Informa tion Online using Patient Portal and [employer]rd [employer] Apps Indication:Former smoker Start:25-Sep-2020 Instruction Type:Patient Education Patient Instructions Indication:Carotid stenosis, left Start:22-Jul-2020 Instruction Type:Provider Instructions for Treatment How to Access Health Informa tion Online using Patient Portal and [employer]rd [employer] Apps Indication:Diabetes mellitus type 2, uncontrolled (Renamed from Uncontrolled type 2 diabetes mellitus) Start:22-Jul-2020 Instruction Type:Patient Education Patient Instructions Indication:BMI 34.0-34.9,adult Start:15-Apr-2020 Instruction Type:Provider Instructions for Treatment How to Access Health Informa tion Online using Patient Portal and [employer]rd [employer] Apps Indication:BMI 34.0-34.9,adult Start:15-Apr-2020 Instruction Type:Patient Education How to access health informa tion online Indication:Diabetes mellitus type II, controlled, with no complications (Renamed from Controlled type 2 diabetes mellitus without complication) Start:10-Jan-2020 Instruction Type:Patient Education How to access health informa tion online - Detail Indication:Diabetes mellitus type II, controlled, with no complications (Renamed from Controlled type 2 diabetes mellitus without complication) Start:10-Jan-2020 Instruction Type:Patient Education Patient Instructions Indication:Diabetes mellitus type II, controlled, with no complications (Renamed from Controlled type 2 diabetes mellitus without complication) Start:10-Jan-2020 Instruction Type:Provider Instructions for Treatment How to access health informa tion online Indication:Diabetes mellitus type 2, uncontrolled (Renamed from Uncontrolled type 2 diabetes mellitus) Start:25-Sep-2019 Instruction Type:Patient Education How to access health informa tion online - Detail Indication:Diabetes mellitus type 2, uncontrolled (Renamed from Uncontrolled type 2 diabetes mellitus) Start:25-Sep-2019 Instruction Type:Patient Education Patient Instructions Indication:Diabetes mellitus type 2, uncontrolled (Renamed from Uncontrolled type 2 diabetes mellitus) Start:25-Sep-2019 Instruction Type:Provider Instructions for Treatment How to access health informa tion online Indication:BMI 33.0-33.9,adult Start:07-Jul-2019 Instruction Type:Patient Education How to access health informa tion online - Detail Indication:BMI 33.0-33.9,adult Start:07-Jul-2019 Instruction Type:Patient Education Patient Instructions Indication:Cerebral microvascular disease Start:07-Jul-2019 Instruction Type:Provider Instructions for Treatment How to access health informa tion online Indication:Former smoker, stopped smoking in distant past Start:20-Jun-2019 Instruction Type:Patient Education How to access health informa tion online - Detail Indication:Former smoker, stopped smoking in distant past Start:20-Jun-2019 Instruction Type:Patient Education Patient Instructions Indication:Former smoker, stopped smoking in distant past Start:20-Jun-2019 Instruction Type:Provider Instructions for Treatment How to access health informa tion online Indication:Nonsmoker Start:16-Jun-2019 Instruction Type:Patient Education How to access health informa tion online - Detail Indication:Nonsmoker Start:16-Jun-2019 Instruction Type:Patient Education Patient Instructions Indication:Nonsmoker Start:16-Jun-2019 Instruction Type:Provider Instructions for Treatment [facility]; [facility] Work Phone: Instructions* Name Dates Details Patient Instructions Indication:Diabetes mellitus type 2, uncontrolled (Renamed from Uncontrolled type 2 diabetes mellitus) Start:12-May-2021 Instruction Type:Provider Instructions for Treatment How to Access Health Informa tion Online using Patient Portal and [employer] Apps Indication:Diabetes mellitus type 2, uncontrolled (Renamed from Uncontrolled type 2 diabetes mellitus) Start:12-May-2021 Instruction Type:Patient Education Patient Instructions Indication:Vitamin D deficiency Start:31-Jan-2021 Instruction Type:Provider Instructions for Treatment How to Access Health Informa tion Online using Patient Portal and [employer]rd [employer] Apps Indication:Diabetes mellitus type 2, uncontrolled (Renamed from Uncontrolled type 2 diabetes mellitus) Start:31-Jan-2021 Instruction Type:Patient Education Patient Instructions Indication:BMI 35.0-35.9,adult Start:28-Oct-2020 Instruction Type:Provider Instructions for Treatment How to Access Health Informa tion Online using Patient Portal and [employer]rd [employer] Apps Indication:BMI 35.0-35.9,adult Start:28-Oct-2020 Instruction Type:Patient Education Patient Instructions Indication:Former smoker Start:25-Sep-2020 Instruction Type:Provider Instructions for Treatment How to Access Health Informa tion Online using Patient Portal and [employer]rd [employer] Apps Indication:Former smoker Start:25-Sep-2020 Instruction Type:Patient Education Patient Instructions Indication:Carotid stenosis, left Start:22-Jul-2020 Instruction Type:Provider Instructions for Treatment How to Access Health Informa tion Online using Patient Portal and [employer]rd [employer] Apps Indication:Diabetes mellitus type 2, uncontrolled (Renamed from Uncontrolled type 2 diabetes mellitus) Start:22-Jul-2020 Instruction Type:Patient Education Patient Instructions Indication:BMI 34.0-34.9,adult Start:15-Apr-2020 Instruction Type:Provider Instructions for Treatment How to Access Health Informa tion Online using Patient Portal and [employer]rd [employer] Apps Indication:BMI 34.0-34.9,adult Start:15-Apr-2020 Instruction Type:Patient Education How to access health informa tion online Indication:Diabetes mellitus type II, controlled, with no complications (Renamed from Controlled type 2 diabetes mellitus without complication) Start:10-Jan-2020 Instruction Type:Patient Education How to access health informa tion online - Detail Indication:Diabetes mellitus type II, controlled, with no complications (Renamed from Controlled type 2 diabetes mellitus without complication) Start:10-Jan-2020 Instruction Type:Patient Education Patient Instructions Indication:Diabetes mellitus type II, controlled, with no complications (Renamed from Controlled type 2 diabetes mellitus without complication) Start:10-Jan-2020 Instruction Type:Provider Instructions for Treatment How to access health informa tion online Indication:Diabetes mellitus type 2, uncontrolled (Renamed from Uncontrolled type 2 diabetes mellitus) Start:25-Sep-2019 Instruction Type:Patient Education How to access health informa tion online - Detail Indication:Diabetes mellitus type 2, uncontrolled (Renamed from Uncontrolled type 2 diabetes mellitus) Start:25-Sep-2019 Instruction Type:Patient Education Patient Instructions Indication:Diabetes mellitus type 2, uncontrolled (Renamed from Uncontrolled type 2 diabetes mellitus) Start:25-Sep-2019 Instruction Type:Provider Instructions for Treatment How to access health informa tion online Indication:BMI 33.0-33.9,adult Start:07-Jul-2019 Instruction Type:Patient Education How to access health informa tion online - Detail Indication:BMI 33.0-33.9,adult Start:07-Jul-2019 Instruction Type:Patient Education Patient Instructions Indication:Cerebral microvascular disease Start:07-Jul-2019 Instruction Type:Provider Instructions for Treatment How to access health informa tion online Indication:Former smoker, stopped smoking in distant past Start:20-Jun-2019 Instruction Type:Patient Education How to access health informa tion online - Detail Indication:Former smoker, stopped smoking in distant past Start:20-Jun-2019 Instruction Type:Patient Education Patient Instructions Indication:Former smoker, stopped smoking in distant past Start:20-Jun-2019 Instruction Type:Provider Instructions for Treatment How to access health informa tion online Indication:Nonsmoker Start:16-Jun-2019 Instruction Type:Patient Education How to access health informa tion online - Detail Indication:Nonsmoker Start:16-Jun-2019 Instruction Type:Patient Education Patient Instructions Indication:Nonsmoker Start:16-Jun-2019 Instruction Type:Provider Instructions for Treatment [facility]; [facility] Work Phone: Instructions* Name Dates Details Patient Instructions Indication:BMI 36.0-36.9,adult Start:22-Sep-2021 Instruction Type:Provider Instructions for Treatment How to Access Health Informa tion Online using Patient Portal and [employer] Apps Indication:BMI 36.0-36.9,adult Start:22-Sep-2021 Instruction Type:Patient Education Patient Instructions Indication:Uncontrolled diabetes mellitus with hyperglycemia Start:12-May-2021 Instruction Type:Provider Instructions for Treatment How to Access Health Informa tion Online using Patient Portal and [employer] Apps Indication:Uncontrolled diabetes mellitus with hyperglycemia Start:12-May-2021 Instruction Type:Patient Education Patient Instructions Indication:Vitamin D deficiency Start:31-Jan-2021 Instruction Type:Provider Instructions for Treatment How to Access Health Informa tion Online using Patient Portal and [employer]rd [employer] Apps Indication:Uncontrolled diabetes mellitus with hyperglycemia Start:31-Jan-2021 Instruction Type:Patient Education Patient Instructions Indication:BMI 35.0-35.9,adult Start:28-Oct-2020 Instruction Type:Provider Instructions for Treatment How to Access Health Informa tion Online using Patient Portal and [employer] Apps Indication:BMI 35.0-35.9,adult Start:28-Oct-2020 Instruction Type:Patient Education Patient Instructions Indication:Former smoker Start:25-Sep-2020 Instruction Type:Provider Instructions for Treatment How to Access Health Informa tion Online using Patient Portal and [employer] Apps Indication:Former smoker Start:25-Sep-2020 Instruction Type:Patient Education Patient Instructions Indication:Carotid stenosis, left Start:22-Jul-2020 Instruction Type:Provider Instructions for Treatment How to Access Health Informa tion Online using Patient Portal and [employer] Apps Indication:Uncontrolled diabetes mellitus with hyperglycemia Start:22-Jul-2020 Instruction Type:Patient Education Patient Instructions Indication:BMI 34.0-34.9,adult Start:15-Apr-2020 Instruction Type:Provider Instructions for Treatment How to Access Health Informa tion Online using Patient Portal and [employer] Apps Indication:BMI 34.0-34.9,adult Start:15-Apr-2020 Instruction Type:Patient Education How to access health informa tion online Indication:Diabetes mellitus type II, controlled, with no complications (Renamed from Controlled type 2 diabetes mellitus without complication) Start:10-Jan-2020 Instruction Type:Patient Education How to access health informa tion online - Detail Indication:Diabetes mellitus type II, controlled, with no complications (Renamed from Controlled type 2 diabetes mellitus without complication) Start:10-Jan-2020 Instruction Type:Patient Education Patient Instructions Indication:Diabetes mellitus type II, controlled, with no complications (Renamed from Controlled type 2 diabetes mellitus without complication) Start:10-Jan-2020 Instruction Type:Provider Instructions for Treatment How to access health informa tion online Indication:Uncontrolled diabetes mellitus with hyperglycemia Start:25-Sep-2019 Instruction Type:Patient Education How to access health informa tion online - Detail Indication:Uncontrolled diabetes mellitus with hyperglycemia Start:25-Sep-2019 Instruction Type:Patient Education Patient Instructions Indication:Uncontrolled diabetes mellitus with hyperglycemia Start:25-Sep-2019 Instruction Type:Provider Instructions for Treatment How to access health informa tion online Indication:BMI 33.0-33.9,adult Start:07-Jul-2019 Instruction Type:Patient Education How to access health informa tion online - Detail Indication:BMI 33.0-33.9,adult Start:07-Jul-2019 Instruction Type:Patient Education Patient Instructions Indication:Cerebral microvascular disease Start:07-Jul-2019 Instruction Type:Provider Instructions for Treatment How to access health informa tion online Indication:Former smoker, stopped smoking in distant past Start:20-Jun-2019 Instruction Type:Patient Education How to access health informa tion online - Detail Indication:Former smoker, stopped smoking in distant past Start:20-Jun-2019 Instruction Type:Patient Education Patient Instructions Indication:Former smoker, stopped smoking in distant past Start:20-Jun-2019 Instruction Type:Provider Instructions for Treatment How to access health informa tion online Indication:Nonsmoker Start:16-Jun-2019 Instruction Type:Patient Education How to access health informa tion online - Detail Indication:Nonsmoker Start:16-Jun-2019 Instruction Type:Patient Education Patient Instructions Indication:Nonsmoker Start:16-Jun-2019 Instruction Type:Provider Instructions for Treatment [facility]; [facility] Work Phone: Instructions* Name Dates Details Patient Instructions Indication:BMI 36.0-36.9,adult Start:22-Sep-2021 Instruction Type:Provider Instructions for Treatment How to Access Health Informa tion Online using Patient Portal and [employer]rd [employer] Apps Indication:BMI 36.0-36.9,adult Start:22-Sep-2021 Instruction Type:Patient Education Patient Instructions Start:12-May-2021 Instruction Type:Provider Instructions for Treatment How to Access Health Informa tion Online using Patient Portal and [employer] Apps Start:12-May-2021 Instruction Type:Patient Education Patient Instructions Indication:Vitamin D deficiency Start:31-Jan-2021 Instruction Type:Provider Instructions for Treatment How to Access Health Informa tion Online using Patient Portal and [employer] Apps Start:31-Jan-2021 Instruction Type:Patient Education Patient Instructions Indication:BMI 35.0-35.9,adult Start:28-Oct-2020 Instruction Type:Provider Instructions for Treatment How to Access Health Informa tion Online using Patient Portal and [employer]rd [employer] Apps Indication:BMI 35.0-35.9,adult Start:28-Oct-2020 Instruction Type:Patient Education Patient Instructions Start:25-Sep-2020 Instruction Type:Provider Instructions for Treatment How to Access Health Informa tion Online using Patient Portal and [employer] Apps Start:25-Sep-2020 Instruction Type:Patient Education Patient Instructions Indication:Carotid stenosis, left Start:22-Jul-2020 Instruction Type:Provider Instructions for Treatment How to Access Health Informa tion Online using Patient Portal and [employer]rd [employer] Apps Start:22-Jul-2020 Instruction Type:Patient Education Patient Instructions Indication:BMI 34.0-34.9,adult Start:15-Apr-2020 Instruction Type:Provider Instructions for Treatment How to Access Health Informa tion Online using Patient Portal and [employer]rd [employer] Apps Indication:BMI 34.0-34.9,adult Start:15-Apr-2020 Instruction Type:Patient Education How to access health informa tion online Indication:Diabetes mellitus type II, controlled, with no complications (Renamed from Controlled type 2 diabetes mellitus without complication) Start:10-Jan-2020 Instruction Type:Patient Education How to access health informa tion online - Detail Indication:Diabetes mellitus type II, controlled, with no complications (Renamed from Controlled type 2 diabetes mellitus without complication) Start:10-Jan-2020 Instruction Type:Patient Education Patient Instructions Indication:Diabetes mellitus type II, controlled, with no complications (Renamed from Controlled type 2 diabetes mellitus without complication) Start:10-Jan-2020 Instruction Type:Provider Instructions for Treatment How to access health informa tion online Start:25-Sep-2019 Instruction Type:Patient Education How to access health informa tion online - Detail Start:25-Sep-2019 Instruction Type:Patient Education Patient Instructions Start:25-Sep-2019 Instruction Type:Provider Instructions for Treatment How to access health informa tion online Indication:BMI 33.0-33.9,adult Start:07-Jul-2019 Instruction Type:Patient Education How to access health informa tion online - Detail Indication:BMI 33.0-33.9,adult Start:07-Jul-2019 Instruction Type:Patient Education Patient Instructions Indication:Cerebral microvascular disease Start:07-Jul-2019 Instruction Type:Provider Instructions for Treatment How to access health informa tion online Indication:Former smoker, stopped smoking in distant past Start:20-Jun-2019 Instruction Type:Patient Education How to access health informa tion online - Detail Indication:Former smoker, stopped smoking in distant past Start:20-Jun-2019 Instruction Type:Patient Education Patient Instructions Indication:Former smoker, stopped smoking in distant past Start:20-Jun-2019 Instruction Type:Provider Instructions for Treatment How to access health informa tion online Indication:Nonsmoker Start:16-Jun-2019 Instruction Type:Patient Education How to access health informa tion online - Detail Indication:Nonsmoker Start:16-Jun-2019 Instruction Type:Patient Education Patient Instructions Indication:Nonsmoker Start:16-Jun-2019 Instruction Type:Provider Instructions for Treatment [facility]; [facility] Work Phone: Instructions* Name Dates Details How to Access Health Informa tion Online using Patient Portal and [employer] Apps Indication:Uncontrolled diabetes mellitus with hyperglycemia Start:30-Dec-2021 Instruction Type:Patient Education Patient Instructions Indication:Uncontrolled diabetes mellitus with hyperglycemia Start:30-Dec-2021 Instruction Type:Provider Instructions for Treatment Patient Instructions Indication:BMI 36.0-36.9,adult Start:22-Sep-2021 Instruction Type:Provider Instructions for Treatment How to Access Health Informa tion Online using Patient Portal and [employer] Apps Indication:BMI 36.0-36.9,adult Start:22-Sep-2021 Instruction Type:Patient Education Patient Instructions Indication:Uncontrolled diabetes mellitus with hyperglycemia Start:12-May-2021 Instruction Type:Provider Instructions for Treatment How to Access Health Informa tion Online using Patient Portal and [employer] Indication:Uncontrolled diabetes mellitus with hyperglycemia Start:12-May-2021 Instruction Type:Patient Education Patient Instructions Indication:Vitamin D deficiency Start:31-Jan-2021 Instruction Type:Provider Instructions for Treatment How to Access Health Informa tion Online using Patient Portal and [employer] Apps Indication:Uncontrolled diabetes mellitus with hyperglycemia Start:31-Jan-2021 Instruction Type:Patient Education Patient Instructions Indication:BMI 35.0-35.9,adult Start:28-Oct-2020 Instruction Type:Provider Instructions for Treatment How to Access Health Informa tion Online using Patient Portal and [employer] Apps Indication:BMI 35.0-35.9,adult Start:28-Oct-2020 Instruction Type:Patient Education Patient Instructions Indication:Former smoker Start:25-Sep-2020 Instruction Type:Provider Instructions for Treatment How to Access Health Informa tion Online using Patient Portal and [employer] Apps Indication:Former smoker Start:25-Sep-2020 Instruction Type:Patient Education Patient Instructions Indication:Carotid stenosis, left Start:22-Jul-2020 Instruction Type:Provider Instructions for Treatment How to Access Health Informa tion Online using Patient Portal and [employer] Indication:Uncontrolled diabetes mellitus with hyperglycemia Start:22-Jul-2020 Instruction Type:Patient Education Patient Instructions Indication:BMI 34.0-34.9,adult Start:15-Apr-2020 Instruction Type:Provider Instructions for Treatment How to Access Health Informa tion Online using Patient Portal and [employer] Apps Indication:BMI 34.0-34.9,adult Start:15-Apr-2020 Instruction Type:Patient Education How to access health informa tion online Indication:Diabetes mellitus type II, controlled, with no complications (Renamed from Controlled type 2 diabetes mellitus without complication) Start:10-Jan-2020 Instruction Type:Patient Education How to access health informa tion online - Detail Indication:Diabetes mellitus type II, controlled, with no complications (Renamed from Controlled type 2 diabetes mellitus without complication) Start:10-Jan-2020 Instruction Type:Patient Education Patient Instructions Indication:Diabetes mellitus type II, controlled, with no complications (Renamed from Controlled type 2 diabetes mellitus without complication) Start:10-Jan-2020 Instruction Type:Provider Instructions for Treatment How to access health informa tion online Indication:Uncontrolled diabetes mellitus with hyperglycemia Start:25-Sep-2019 Instruction Type:Patient Education How to access health informa tion online - Detail Indication:Uncontrolled diabetes mellitus with hyperglycemia Start:25-Sep-2019 Instruction Type:Patient Education Patient Instructions Indication:Uncontrolled diabetes mellitus with hyperglycemia Start:25-Sep-2019 Instruction Type:Provider Instructions for Treatment How to access health informa tion online Indication:BMI 33.0-33.9,adult Start:07-Jul-2019 Instruction Type:Patient Education How to access health informa tion online - Detail Indication:BMI 33.0-33.9,adult Start:07-Jul-2019 Instruction Type:Patient Education Patient Instructions Indication:Cerebral microvascular disease Start:07-Jul-2019 Instruction Type:Provider Instructions for Treatment How to access health informa tion online Indication:Former smoker, stopped smoking in distant past Start:20-Jun-2019 Instruction Type:Patient Education How to access health informa tion online - Detail Indication:Former smoker, stopped smoking in distant past Start:20-Jun-2019 Instruction Type:Patient Education Patient Instructions Indication:Former smoker, stopped smoking in distant past Start:20-Jun-2019 Instruction Type:Provider Instructions for Treatment How to access health informa tion online Indication:Nonsmoker Start:16-Jun-2019 Instruction Type:Patient Education How to access health informa tion online - Detail Indication:Nonsmoker Start:16-Jun-2019 Instruction Type:Patient Education Patient Instructions Indication:Nonsmoker Start:16-Jun-2019 Instruction Type:Provider Instructions for Treatment [facility]; [facility] Work Phone: Instructions* Name Dates Details How to Access Health Informa tion Online using Patient Portal and [employer]rd [employer] Apps Indication:Uncontrolled diabetes mellitus with hyperglycemia Start:30-Dec-2021 Instruction Type:Patient Education Patient Instructions Indication:Uncontrolled diabetes mellitus with hyperglycemia Start:30-Dec-2021 Instruction Type:Provider Instructions for Treatment Patient Instructions Indication:BMI 36.0-36.9,adult Start:22-Sep-2021 Instruction Type:Provider Instructions for Treatment How to Access Health Informa tion Online using Patient Portal and [employer] Apps Indication:BMI 36.0-36.9,adult Start:22-Sep-2021 Instruction Type:Patient Education Patient Instructions Indication:Uncontrolled diabetes mellitus with hyperglycemia Start:12-May-2021 Instruction Type:Provider Instructions for Treatment How to Access Health Informa tion Online using Patient Portal and [employer] Indication:Uncontrolled diabetes mellitus with hyperglycemia Start:12-May-2021 Instruction Type:Patient Education Patient Instructions Indication:Vitamin D deficiency Start:31-Jan-2021 Instruction Type:Provider Instructions for Treatment How to Access Health Informa tion Online using Patient Portal and [employer] Apps Indication:Uncontrolled diabetes mellitus with hyperglycemia Start:31-Jan-2021 Instruction Type:Patient Education Patient Instructions Indication:BMI 35.0-35.9,adult Start:28-Oct-2020 Instruction Type:Provider Instructions for Treatment How to Access Health Informa tion Online using Patient Portal and [employer] Apps Indication:BMI 35.0-35.9,adult Start:28-Oct-2020 Instruction Type:Patient Education Patient Instructions Indication:Former smoker Start:25-Sep-2020 Instruction Type:Provider Instructions for Treatment How to Access Health Informa tion Online using Patient Portal and [employer]rd [employer] Apps Indication:Former smoker Start:25-Sep-2020 Instruction Type:Patient Education Patient Instructions Indication:Carotid stenosis, left Start:22-Jul-2020 Instruction Type:Provider Instructions for Treatment How to Access Health Informa tion Online using Patient Portal and [employer] Apps Indication:Uncontrolled diabetes mellitus with hyperglycemia Start:22-Jul-2020 Instruction Type:Patient Education Patient Instructions Indication:BMI 34.0-34.9,adult Start:15-Apr-2020 Instruction Type:Provider Instructions for Treatment How to Access Health Informa tion Online using Patient Portal and [employer] Apps Indication:BMI 34.0-34.9,adult Start:15-Apr-2020 Instruction Type:Patient Education How to access health informa tion online Indication:Diabetes mellitus type II, controlled, with no complications (Renamed from Controlled type 2 diabetes mellitus without complication) Start:10-Jan-2020 Instruction Type:Patient Education How to access health informa tion online - Detail Indication:Diabetes mellitus type II, controlled, with no complications (Renamed from Controlled type 2 diabetes mellitus without complication) Start:10-Jan-2020 Instruction Type:Patient Education Patient Instructions Indication:Diabetes mellitus type II, controlled, with no complications (Renamed from Controlled type 2 diabetes mellitus without complication) Start:10-Jan-2020 Instruction Type:Provider Instructions for Treatment How to access health informa tion online Indication:Uncontrolled diabetes mellitus with hyperglycemia Start:25-Sep-2019 Instruction Type:Patient Education How to access health informa tion online - Detail Indication:Uncontrolled diabetes mellitus with hyperglycemia Start:25-Sep-2019 Instruction Type:Patient Education Patient Instructions Indication:Uncontrolled diabetes mellitus with hyperglycemia Start:25-Sep-2019 Instruction Type:Provider Instructions for Treatment How to access health informa tion online Indication:BMI 33.0-33.9,adult Start:07-Jul-2019 Instruction Type:Patient Education How to access health informa tion online - Detail Indication:BMI 33.0-33.9,adult Start:07-Jul-2019 Instruction Type:Patient Education Patient Instructions Indication:Cerebral microvascular disease Start:07-Jul-2019 Instruction Type:Provider Instructions for Treatment How to access health informa tion online Indication:Former smoker, stopped smoking in distant past Start:20-Jun-2019 Instruction Type:Patient Education How to access health informa tion online - Detail Indication:Former smoker, stopped smoking in distant past Start:20-Jun-2019 Instruction Type:Patient Education Patient Instructions Indication:Former smoker, stopped smoking in distant past Start:20-Jun-2019 Instruction Type:Provider Instructions for Treatment How to access health informa tion online Indication:Nonsmoker Start:16-Jun-2019 Instruction Type:Patient Education How to access health informa tion online - Detail Indication:Nonsmoker Start:16-Jun-2019 Instruction Type:Patient Education Patient Instructions Indication:Nonsmoker Start:16-Jun-2019 Instruction Type:Provider Instructions for Treatment [facility]; [facility] Work Phone: Instructions* Name Dates Details How to Access Health Informa tion Online using Patient Portal and [employer]rd [employer] Apps Indication:Uncontrolled diabetes mellitus with hyperglycemia Start:30-Dec-2021 Instruction Type:Patient Education Patient Instructions Indication:Uncontrolled diabetes mellitus with hyperglycemia Start:30-Dec-2021 Instruction Type:Provider Instructions for Treatment Patient Instructions Indication:BMI 36.0-36.9,adult Start:22-Sep-2021 Instruction Type:Provider Instructions for Treatment How to Access Health Informa tion Online using Patient Portal and [employer] Apps Indication:BMI 36.0-36.9,adult Start:22-Sep-2021 Instruction Type:Patient Education Patient Instructions Indication:Uncontrolled diabetes mellitus with hyperglycemia Start:12-May-2021 Instruction Type:Provider Instructions for Treatment How to Access Health Informa tion Online using Patient Portal and [employer] Apps Indication:Uncontrolled diabetes mellitus with hyperglycemia Start:12-May-2021 Instruction Type:Patient Education Patient Instructions Indication:Vitamin D deficiency Start:31-Jan-2021 Instruction Type:Provider Instructions for Treatment How to Access Health Informa tion Online using Patient Portal and [employer] Apps Indication:Uncontrolled diabetes mellitus with hyperglycemia Start:31-Jan-2021 Instruction Type:Patient Education Patient Instructions Indication:BMI 35.0-35.9,adult Start:28-Oct-2020 Instruction Type:Provider Instructions for Treatment How to Access Health Informa tion Online using Patient Portal and [employer] Apps Indication:BMI 35.0-35.9,adult Start:28-Oct-2020 Instruction Type:Patient Education Patient Instructions Indication:Former smoker Start:25-Sep-2020 Instruction Type:Provider Instructions for Treatment How to Access Health Informa tion Online using Patient Portal and [employer] Apps Indication:Former smoker Start:25-Sep-2020 Instruction Type:Patient Education Patient Instructions Indication:Carotid stenosis, left Start:22-Jul-2020 Instruction Type:Provider Instructions for Treatment How to Access Health Informa tion Online using Patient Portal and [employer]rd [employer] Apps Indication:Uncontrolled diabetes mellitus with hyperglycemia Start:22-Jul-2020 Instruction Type:Patient Education Patient Instructions Indication:BMI 34.0-34.9,adult Start:15-Apr-2020 Instruction Type:Provider Instructions for Treatment How to Access Health Informa tion Online using Patient Portal and [employer]rd [employer] Apps Indication:BMI 34.0-34.9,adult Start:15-Apr-2020 Instruction Type:Patient Education How to access health informa tion online Indication:Diabetes mellitus type II, controlled, with no complications (Renamed from Controlled type 2 diabetes mellitus without complication) Start:10-Jan-2020 Instruction Type:Patient Education How to access health informa tion online - Detail Indication:Diabetes mellitus type II, controlled, with no complications (Renamed from Controlled type 2 diabetes mellitus without complication) Start:10-Jan-2020 Instruction Type:Patient Education Patient Instructions Indication:Diabetes mellitus type II, controlled, with no complications (Renamed from Controlled type 2 diabetes mellitus without complication) Start:10-Jan-2020 Instruction Type:Provider Instructions for Treatment How to access health informa tion online Indication:Uncontrolled diabetes mellitus with hyperglycemia Start:25-Sep-2019 Instruction Type:Patient Education How to access health informa tion online - Detail Indication:Uncontrolled diabetes mellitus with hyperglycemia Start:25-Sep-2019 Instruction Type:Patient Education Patient Instructions Indication:Uncontrolled diabetes mellitus with hyperglycemia Start:25-Sep-2019 Instruction Type:Provider Instructions for Treatment How to access health informa tion online Indication:BMI 33.0-33.9,adult Start:07-Jul-2019 Instruction Type:Patient Education How to access health informa tion online - Detail Indication:BMI 33.0-33.9,adult Start:07-Jul-2019 Instruction Type:Patient Education Patient Instructions Indication:Cerebral microvascular disease Start:07-Jul-2019 Instruction Type:Provider Instructions for Treatment How to access health informa tion online Indication:Former smoker, stopped smoking in distant past Start:20-Jun-2019 Instruction Type:Patient Education How to access health informa tion online - Detail Indication:Former smoker, stopped smoking in distant past Start:20-Jun-2019 Instruction Type:Patient Education Patient Instructions Indication:Former smoker, stopped smoking in distant past Start:20-Jun-2019 Instruction Type:Provider Instructions for Treatment How to access health informa tion online Indication:Nonsmoker Start:16-Jun-2019 Instruction Type:Patient Education How to access health informa tion online - Detail Indication:Nonsmoker Start:16-Jun-2019 Instruction Type:Patient Education Patient Instructions Indication:Nonsmoker Start:16-Jun-2019 Instruction Type:Provider Instructions for Treatment [facility]; [facility] Work Phone: Instructions* Name Dates Details How to Access Health Informa tion Online using Patient Portal and [employer]rd [employer] Apps Indication:Uncontrolled diabetes mellitus with hyperglycemia Start:30-Dec-2021 Instruction Type:Patient Education Patient Instructions Indication:Uncontrolled diabetes mellitus with hyperglycemia Start:30-Dec-2021 Instruction Type:Provider Instructions for Treatment Patient Instructions Indication:BMI 36.0-36.9,adult Start:22-Sep-2021 Instruction Type:Provider Instructions for Treatment How to Access Health Informa tion Online using Patient Portal and [employer] Apps Indication:BMI 36.0-36.9,adult Start:22-Sep-2021 Instruction Type:Patient Education Patient Instructions Indication:Uncontrolled diabetes mellitus with hyperglycemia Start:12-May-2021 Instruction Type:Provider Instructions for Treatment How to Access Health Informa tion Online using Patient Portal and [employer] Apps Indication:Uncontrolled diabetes mellitus with hyperglycemia Start:12-May-2021 Instruction Type:Patient Education Patient Instructions Indication:Vitamin D deficiency Start:31-Jan-2021 Instruction Type:Provider Instructions for Treatment How to Access Health Informa tion Online using Patient Portal and [employer] Apps Indication:Uncontrolled diabetes mellitus with hyperglycemia Start:31-Jan-2021 Instruction Type:Patient Education Patient Instructions Indication:BMI 35.0-35.9,adult Start:28-Oct-2020 Instruction Type:Provider Instructions for Treatment How to Access Health Informa tion Online using Patient Portal and [employer] Apps Indication:BMI 35.0-35.9,adult Start:28-Oct-2020 Instruction Type:Patient Education Patient Instructions Indication:Former smoker Start:25-Sep-2020 Instruction Type:Provider Instructions for Treatment How to Access Health Informa tion Online using Patient Portal and [employer] Apps Indication:Former smoker Start:25-Sep-2020 Instruction Type:Patient Education Patient Instructions Indication:Carotid stenosis, left Start:22-Jul-2020 Instruction Type:Provider Instructions for Treatment How to Access Health Informa tion Online using Patient Portal and [employer]rd [employer] Apps Indication:Uncontrolled diabetes mellitus with hyperglycemia Start:22-Jul-2020 Instruction Type:Patient Education Patient Instructions Indication:BMI 34.0-34.9,adult Start:15-Apr-2020 Instruction Type:Provider Instructions for Treatment How to Access Health Informa tion Online using Patient Portal and [employer]rd [employer] Apps Indication:BMI 34.0-34.9,adult Start:15-Apr-2020 Instruction Type:Patient Education How to access health informa tion online Indication:Diabetes mellitus type II, controlled, with no complications (Renamed from Controlled type 2 diabetes mellitus without complication) Start:10-Jan-2020 Instruction Type:Patient Education How to access health informa tion online - Detail Indication:Diabetes mellitus type II, controlled, with no complications (Renamed from Controlled type 2 diabetes mellitus without complication) Start:10-Jan-2020 Instruction Type:Patient Education Patient Instructions Indication:Diabetes mellitus type II, controlled, with no complications (Renamed from Controlled type 2 diabetes mellitus without complication) Start:10-Jan-2020 Instruction Type:Provider Instructions for Treatment How to access health informa tion online Indication:Uncontrolled diabetes mellitus with hyperglycemia Start:25-Sep-2019 Instruction Type:Patient Education How to access health informa tion online - Detail Indication:Uncontrolled diabetes mellitus with hyperglycemia Start:25-Sep-2019 Instruction Type:Patient Education Patient Instructions Indication:Uncontrolled diabetes mellitus with hyperglycemia Start:25-Sep-2019 Instruction Type:Provider Instructions for Treatment How to access health informa tion online Indication:BMI 33.0-33.9,adult Start:07-Jul-2019 Instruction Type:Patient Education How to access health informa tion online - Detail Indication:BMI 33.0-33.9,adult Start:07-Jul-2019 Instruction Type:Patient Education Patient Instructions Indication:Cerebral microvascular disease Start:07-Jul-2019 Instruction Type:Provider Instructions for Treatment How to access health informa tion online Indication:Former smoker, stopped smoking in distant past Start:20-Jun-2019 Instruction Type:Patient Education How to access health informa tion online - Detail Indication:Former smoker, stopped smoking in distant past Start:20-Jun-2019 Instruction Type:Patient Education Patient Instructions Indication:Former smoker, stopped smoking in distant past Start:20-Jun-2019 Instruction Type:Provider Instructions for Treatment How to access health informa tion online Indication:Nonsmoker Start:16-Jun-2019 Instruction Type:Patient Education How to access health informa tion online - Detail Indication:Nonsmoker Start:16-Jun-2019 Instruction Type:Patient Education Patient Instructions Indication:Nonsmoker Start:16-Jun-2019 Instruction Type:Provider Instructions for Treatment [facility]; [facility] Work Phone: Instructions* Name Dates Details Patient Instructions Indication:Uncontrolled diabetes mellitus with hyperglycemia Start:01-Apr-2022 Instruction Type:Provider Instructions for Treatment How to Access Health Informa tion Online using Patient Portal and [employer]rd [employer] Apps Indication:Uncontrolled diabetes mellitus with hyperglycemia Start:01-Apr-2022 Instruction Type:Patient Education How to Access Health Informa tion Online using Patient Portal and [employer]rd [employer] Apps Indication:Uncontrolled diabetes mellitus with hyperglycemia Start:30-Dec-2021 Instruction Type:Patient Education Patient Instructions Indication:Uncontrolled diabetes mellitus with hyperglycemia Start:30-Dec-2021 Instruction Type:Provider Instructions for Treatment Patient Instructions Indication:BMI 36.0-36.9,adult Start:22-Sep-2021 Instruction Type:Provider Instructions for Treatment How to Access Health Informa tion Online using Patient Portal and [employer]rd [employer] Apps Indication:BMI 36.0-36.9,adult Start:22-Sep-2021 Instruction Type:Patient Education Patient Instructions Indication:Uncontrolled diabetes mellitus with hyperglycemia Start:12-May-2021 Instruction Type:Provider Instructions for Treatment How to Access Health Informa tion Online using Patient Portal and [employer]rd [employer] Apps Indication:Uncontrolled diabetes mellitus with hyperglycemia Start:12-May-2021 Instruction Type:Patient Education Patient Instructions Indication:Vitamin D deficiency Start:31-Jan-2021 Instruction Type:Provider Instructions for Treatment How to Access Health Informa tion Online using Patient Portal and [employer]rd [employer] Apps Indication:Uncontrolled diabetes mellitus with hyperglycemia Start:31-Jan-2021 Instruction Type:Patient Education Patient Instructions Indication:BMI 35.0-35.9,adult Start:28-Oct-2020 Instruction Type:Provider Instructions for Treatment How to Access Health Informa tion Online using Patient Portal and [employer]rd [employer] Apps Indication:BMI 35.0-35.9,adult Start:28-Oct-2020 Instruction Type:Patient Education Patient Instructions Indication:Former smoker Start:25-Sep-2020 Instruction Type:Provider Instructions for Treatment How to Access Health Informa tion Online using Patient Portal and [employer]rd [employer] Apps Indication:Former smoker Start:25-Sep-2020 Instruction Type:Patient Education Patient Instructions Indication:Carotid stenosis, left Start:22-Jul-2020 Instruction Type:Provider Instructions for Treatment How to Access Health Informa tion Online using Patient Portal and [employer]rd [employer] Apps Indication:Uncontrolled diabetes mellitus with hyperglycemia Start:22-Jul-2020 Instruction Type:Patient Education Patient Instructions Indication:BMI 34.0-34.9,adult Start:15-Apr-2020 Instruction Type:Provider Instructions for Treatment How to Access Health Informa tion Online using Patient Portal and [employer]rd [employer] Apps Indication:BMI 34.0-34.9,adult Start:15-Apr-2020 Instruction Type:Patient Education How to access health informa tion online Indication:Diabetes mellitus type II, controlled, with no complications (Renamed from Controlled type 2 diabetes mellitus without complication) Start:10-Jan-2020 Instruction Type:Patient Education How to access health informa tion online - Detail Indication:Diabetes mellitus type II, controlled, with no complications (Renamed from Controlled type 2 diabetes mellitus without complication) Start:10-Jan-2020 Instruction Type:Patient Education Patient Instructions Indication:Diabetes mellitus type II, controlled, with no complications (Renamed from Controlled type 2 diabetes mellitus without complication) Start:10-Jan-2020 Instruction Type:Provider Instructions for Treatment How to access health informa tion online Indication:Uncontrolled diabetes mellitus with hyperglycemia Start:25-Sep-2019 Instruction Type:Patient Education How to access health informa tion online - Detail Indication:Uncontrolled diabetes mellitus with hyperglycemia Start:25-Sep-2019 Instruction Type:Patient Education Patient Instructions Indication:Uncontrolled diabetes mellitus with hyperglycemia Start:25-Sep-2019 Instruction Type:Provider Instructions for Treatment How to access health informa tion online Indication:BMI 33.0-33.9,adult Start:07-Jul-2019 Instruction Type:Patient Education How to access health informa tion online - Detail Indication:BMI 33.0-33.9,adult Start:07-Jul-2019 Instruction Type:Patient Education Patient Instructions Indication:Cerebral microvascular disease Start:07-Jul-2019 Instruction Type:Provider Instructions for Treatment How to access health informa tion online Indication:Former smoker, stopped smoking in distant past Start:20-Jun-2019 Instruction Type:Patient Education How to access health informa tion online - Detail Indication:Former smoker, stopped smoking in distant past Start:20-Jun-2019 Instruction Type:Patient Education Patient Instructions Indication:Former smoker, stopped smoking in distant past Start:20-Jun-2019 Instruction Type:Provider Instructions for Treatment How to access health informa tion online Indication:Nonsmoker Start:16-Jun-2019 Instruction Type:Patient Education How to access health informa tion online - Detail Indication:Nonsmoker Start:16-Jun-2019 Instruction Type:Patient Education Patient Instructions Indication:Nonsmoker Start:16-Jun-2019 Instruction Type:Provider Instructions for Treatment [facility]; [facility] Work Phone: Instructions* Name Dates Details Patient Instructions Indication:Uncontrolled diabetes mellitus with hyperglycemia Start:01-Apr-2022 Instruction Type:Provider Instructions for Treatment How to Access Health Informa tion Online using Patient Portal and [employer]rd [employer] Apps Indication:Uncontrolled diabetes mellitus with hyperglycemia Start:01-Apr-2022 Instruction Type:Patient Education How to Access Health Informa tion Online using Patient Portal and [employer] Apps Indication:Uncontrolled diabetes mellitus with hyperglycemia Start:30-Dec-2021 Instruction Type:Patient Education Patient Instructions Indication:Uncontrolled diabetes mellitus with hyperglycemia Start:30-Dec-2021 Instruction Type:Provider Instructions for Treatment Patient Instructions Indication:BMI 36.0-36.9,adult Start:22-Sep-2021 Instruction Type:Provider Instructions for Treatment How to Access Health Informa tion Online using Patient Portal and [employer]rd [employer] Apps Indication:BMI 36.0-36.9,adult Start:22-Sep-2021 Instruction Type:Patient Education Patient Instructions Indication:Uncontrolled diabetes mellitus with hyperglycemia Start:12-May-2021 Instruction Type:Provider Instructions for Treatment How to Access Health Informa tion Online using Patient Portal and [employer]rd [employer] Apps Indication:Uncontrolled diabetes mellitus with hyperglycemia Start:12-May-2021 Instruction Type:Patient Education Patient Instructions Indication:Vitamin D deficiency Start:31-Jan-2021 Instruction Type:Provider Instructions for Treatment How to Access Health Informa tion Online using Patient Portal and [employer]rd [employer] Apps Indication:Uncontrolled diabetes mellitus with hyperglycemia Start:31-Jan-2021 Instruction Type:Patient Education Patient Instructions Indication:BMI 35.0-35.9,adult Start:28-Oct-2020 Instruction Type:Provider Instructions for Treatment How to Access Health Informa tion Online using Patient Portal and [employer]rd [employer] Apps Indication:BMI 35.0-35.9,adult Start:28-Oct-2020 Instruction Type:Patient Education Patient Instructions Indication:Former smoker Start:25-Sep-2020 Instruction Type:Provider Instructions for Treatment How to Access Health Informa tion Online using Patient Portal and [employer]rd [employer] Apps Indication:Former smoker Start:25-Sep-2020 Instruction Type:Patient Education Patient Instructions Indication:Carotid stenosis, left Start:22-Jul-2020 Instruction Type:Provider Instructions for Treatment How to Access Health Informa tion Online using Patient Portal and [employer]rd [employer] Apps Indication:Uncontrolled diabetes mellitus with hyperglycemia Start:22-Jul-2020 Instruction Type:Patient Education Patient Instructions Indication:BMI 34.0-34.9,adult Start:15-Apr-2020 Instruction Type:Provider Instructions for Treatment How to Access Health Informa tion Online using Patient Portal and [employer]rd [employer] Apps Indication:BMI 34.0-34.9,adult Start:15-Apr-2020 Instruction Type:Patient Education How to access health informa tion online Indication:Diabetes mellitus type II, controlled, with no complications (Renamed from Controlled type 2 diabetes mellitus without complication) Start:10-Jan-2020 Instruction Type:Patient Education How to access health informa tion online - Detail Indication:Diabetes mellitus type II, controlled, with no complications (Renamed from Controlled type 2 diabetes mellitus without complication) Start:10-Jan-2020 Instruction Type:Patient Education Patient Instructions Indication:Diabetes mellitus type II, controlled, with no complications (Renamed from Controlled type 2 diabetes mellitus without complication) Start:10-Jan-2020 Instruction Type:Provider Instructions for Treatment How to access health informa tion online Indication:Uncontrolled diabetes mellitus with hyperglycemia Start:25-Sep-2019 Instruction Type:Patient Education How to access health informa tion online - Detail Indication:Uncontrolled diabetes mellitus with hyperglycemia Start:25-Sep-2019 Instruction Type:Patient Education Patient Instructions Indication:Uncontrolled diabetes mellitus with hyperglycemia Start:25-Sep-2019 Instruction Type:Provider Instructions for Treatment How to access health informa tion online Indication:BMI 33.0-33.9,adult Start:07-Jul-2019 Instruction Type:Patient Education How to access health informa tion online - Detail Indication:BMI 33.0-33.9,adult Start:07-Jul-2019 Instruction Type:Patient Education Patient Instructions Indication:Cerebral microvascular disease Start:07-Jul-2019 Instruction Type:Provider Instructions for Treatment How to access health informa tion online Indication:Former smoker, stopped smoking in distant past Start:20-Jun-2019 Instruction Type:Patient Education How to access health informa tion online - Detail Indication:Former smoker, stopped smoking in distant past Start:20-Jun-2019 Instruction Type:Patient Education Patient Instructions Indication:Former smoker, stopped smoking in distant past Start:20-Jun-2019 Instruction Type:Provider Instructions for Treatment How to access health informa tion online Indication:Nonsmoker Start:16-Jun-2019 Instruction Type:Patient Education How to access health informa tion online - Detail Indication:Nonsmoker Start:16-Jun-2019 Instruction Type:Patient Education Patient Instructions Indication:Nonsmoker Start:16-Jun-2019 Instruction Type:Provider Instructions for Treatment [facility]; [facility] Work Phone: Instructions* Name Dates Details Patient Instructions Indication:Uncontrolled diabetes mellitus with hyperglycemia Start:01-Apr-2022 Instruction Type:Provider Instructions for Treatment How to Access Health Informa tion Online using Patient Portal and [employer]rd [employer] Apps Indication:Uncontrolled diabetes mellitus with hyperglycemia Start:01-Apr-2022 Instruction Type:Patient Education How to Access Health Informa tion Online using Patient Portal and [employer] Apps Indication:Uncontrolled diabetes mellitus with hyperglycemia Start:30-Dec-2021 Instruction Type:Patient Education Patient Instructions Indication:Uncontrolled diabetes mellitus with hyperglycemia Start:30-Dec-2021 Instruction Type:Provider Instructions for Treatment Patient Instructions Indication:BMI 36.0-36.9,adult Start:22-Sep-2021 Instruction Type:Provider Instructions for Treatment How to Access Health Informa tion Online using Patient Portal and [employer]rd [employer] Apps Indication:BMI 36.0-36.9,adult Start:22-Sep-2021 Instruction Type:Patient Education Patient Instructions Indication:Uncontrolled diabetes mellitus with hyperglycemia Start:12-May-2021 Instruction Type:Provider Instructions for Treatment How to Access Health Informa tion Online using Patient Portal and [employer] Apps Indication:Uncontrolled diabetes mellitus with hyperglycemia Start:12-May-2021 Instruction Type:Patient Education Patient Instructions Indication:Vitamin D deficiency Start:31-Jan-2021 Instruction Type:Provider Instructions for Treatment How to Access Health Informa tion Online using Patient Portal and [employer] Apps Indication:Uncontrolled diabetes mellitus with hyperglycemia Start:31-Jan-2021 Instruction Type:Patient Education Patient Instructions Indication:BMI 35.0-35.9,adult Start:28-Oct-2020 Instruction Type:Provider Instructions for Treatment How to Access Health Informa tion Online using Patient Portal and [employer] Apps Indication:BMI 35.0-35.9,adult Start:28-Oct-2020 Instruction Type:Patient Education Patient Instructions Indication:Former smoker Start:25-Sep-2020 Instruction Type:Provider Instructions for Treatment How to Access Health Informa tion Online using Patient Portal and [employer] Apps Indication:Former smoker Start:25-Sep-2020 Instruction Type:Patient Education Patient Instructions Indication:Carotid stenosis, left Start:22-Jul-2020 Instruction Type:Provider Instructions for Treatment How to Access Health Informa tion Online using Patient Portal and [employer] Apps Indication:Uncontrolled diabetes mellitus with hyperglycemia Start:22-Jul-2020 Instruction Type:Patient Education Patient Instructions Indication:BMI 34.0-34.9,adult Start:15-Apr-2020 Instruction Type:Provider Instructions for Treatment How to Access Health Informa tion Online using Patient Portal and [employer]rd [employer] Apps Indication:BMI 34.0-34.9,adult Start:15-Apr-2020 Instruction Type:Patient Education How to access health informa tion online Indication:Diabetes mellitus type II, controlled, with no complications (Renamed from Controlled type 2 diabetes mellitus without complication) Start:10-Jan-2020 Instruction Type:Patient Education How to access health informa tion online - Detail Indication:Diabetes mellitus type II, controlled, with no complications (Renamed from Controlled type 2 diabetes mellitus without complication) Start:10-Jan-2020 Instruction Type:Patient Education Patient Instructions Indication:Diabetes mellitus type II, controlled, with no complications (Renamed from Controlled type 2 diabetes mellitus without complication) Start:10-Jan-2020 Instruction Type:Provider Instructions for Treatment How to access health informa tion online Indication:Uncontrolled diabetes mellitus with hyperglycemia Start:25-Sep-2019 Instruction Type:Patient Education How to access health informa tion online - Detail Indication:Uncontrolled diabetes mellitus with hyperglycemia Start:25-Sep-2019 Instruction Type:Patient Education Patient Instructions Indication:Uncontrolled diabetes mellitus with hyperglycemia Start:25-Sep-2019 Instruction Type:Provider Instructions for Treatment How to access health informa tion online Indication:BMI 33.0-33.9,adult Start:07-Jul-2019 Instruction Type:Patient Education How to access health informa tion online - Detail Indication:BMI 33.0-33.9,adult Start:07-Jul-2019 Instruction Type:Patient Education Patient Instructions Indication:Cerebral microvascular disease Start:07-Jul-2019 Instruction Type:Provider Instructions for Treatment How to access health informa tion online Indication:Former smoker, stopped smoking in distant past Start:20-Jun-2019 Instruction Type:Patient Education How to access health informa tion online - Detail Indication:Former smoker, stopped smoking in distant past Start:20-Jun-2019 Instruction Type:Patient Education Patient Instructions Indication:Former smoker, stopped smoking in distant past Start:20-Jun-2019 Instruction Type:Provider Instructions for Treatment How to access health informa tion online Indication:Nonsmoker Start:16-Jun-2019 Instruction Type:Patient Education How to access health informa tion online - Detail Indication:Nonsmoker Start:16-Jun-2019 Instruction Type:Patient Education Patient Instructions Indication:Nonsmoker Start:16-Jun-2019 Instruction Type:Provider Instructions for Treatment [facility]; [facility] Work Phone: Instructions* Name Dates Details Patient Instructions Indication:Uncontrolled diabetes mellitus with hyperglycemia Start:01-Apr-2022 Instruction Type:Provider Instructions for Treatment How to Access Health Informa tion Online using Patient Portal and [employer]rd [employer] Apps Indication:Uncontrolled diabetes mellitus with hyperglycemia Start:01-Apr-2022 Instruction Type:Patient Education How to Access Health Informa tion Online using Patient Portal and [employer] Apps Indication:Uncontrolled diabetes mellitus with hyperglycemia Start:30-Dec-2021 Instruction Type:Patient Education Patient Instructions Indication:Uncontrolled diabetes mellitus with hyperglycemia Start:30-Dec-2021 Instruction Type:Provider Instructions for Treatment Patient Instructions Indication:BMI 36.0-36.9,adult Start:22-Sep-2021 Instruction Type:Provider Instructions for Treatment How to Access Health Informa tion Online using Patient Portal and [employer] Apps Indication:BMI 36.0-36.9,adult Start:22-Sep-2021 Instruction Type:Patient Education Patient Instructions Indication:Uncontrolled diabetes mellitus with hyperglycemia Start:12-May-2021 Instruction Type:Provider Instructions for Treatment How to Access Health Informa tion Online using Patient Portal and [employer]rd [employer] Apps Indication:Uncontrolled diabetes mellitus with hyperglycemia Start:12-May-2021 Instruction Type:Patient Education Patient Instructions Indication:Vitamin D deficiency Start:31-Jan-2021 Instruction Type:Provider Instructions for Treatment How to Access Health Informa tion Online using Patient Portal and [employer] Apps Indication:Uncontrolled diabetes mellitus with hyperglycemia Start:31-Jan-2021 Instruction Type:Patient Education Patient Instructions Indication:BMI 35.0-35.9,adult Start:28-Oct-2020 Instruction Type:Provider Instructions for Treatment How to Access Health Informa tion Online using Patient Portal and [employer] Apps Indication:BMI 35.0-35.9,adult Start:28-Oct-2020 Instruction Type:Patient Education Patient Instructions Indication:Former smoker Start:25-Sep-2020 Instruction Type:Provider Instructions for Treatment How to Access Health Informa tion Online using Patient Portal and [employer] Apps Indication:Former smoker Start:25-Sep-2020 Instruction Type:Patient Education Patient Instructions Indication:Carotid stenosis, left Start:22-Jul-2020 Instruction Type:Provider Instructions for Treatment How to Access Health Informa tion Online using Patient Portal and [employer] Apps Indication:Uncontrolled diabetes mellitus with hyperglycemia Start:22-Jul-2020 Instruction Type:Patient Education Patient Instructions Indication:BMI 34.0-34.9,adult Start:15-Apr-2020 Instruction Type:Provider Instructions for Treatment How to Access Health Informa tion Online using Patient Portal and [employer] Apps Indication:BMI 34.0-34.9,adult Start:15-Apr-2020 Instruction Type:Patient Education How to access health informa tion online Indication:Diabetes mellitus type II, controlled, with no complications (Renamed from Controlled type 2 diabetes mellitus without complication) Start:10-Jan-2020 Instruction Type:Patient Education How to access health informa tion online - Detail Indication:Diabetes mellitus type II, controlled, with no complications (Renamed from Controlled type 2 diabetes mellitus without complication) Start:10-Jan-2020 Instruction Type:Patient Education Patient Instructions Indication:Diabetes mellitus type II, controlled, with no complications (Renamed from Controlled type 2 diabetes mellitus without complication) Start:10-Jan-2020 Instruction Type:Provider Instructions for Treatment How to access health informa tion online Indication:Uncontrolled diabetes mellitus with hyperglycemia Start:25-Sep-2019 Instruction Type:Patient Education How to access health informa tion online - Detail Indication:Uncontrolled diabetes mellitus with hyperglycemia Start:25-Sep-2019 Instruction Type:Patient Education Patient Instructions Indication:Uncontrolled diabetes mellitus with hyperglycemia Start:25-Sep-2019 Instruction Type:Provider Instructions for Treatment How to access health informa tion online Indication:BMI 33.0-33.9,adult Start:07-Jul-2019 Instruction Type:Patient Education How to access health informa tion online - Detail Indication:BMI 33.0-33.9,adult Start:07-Jul-2019 Instruction Type:Patient Education Patient Instructions Indication:Cerebral microvascular disease Start:07-Jul-2019 Instruction Type:Provider Instructions for Treatment How to access health informa tion online Indication:Former smoker, stopped smoking in distant past Start:20-Jun-2019 Instruction Type:Patient Education How to access health informa tion online - Detail Indication:Former smoker, stopped smoking in distant past Start:20-Jun-2019 Instruction Type:Patient Education Patient Instructions Indication:Former smoker, stopped smoking in distant past Start:20-Jun-2019 Instruction Type:Provider Instructions for Treatment How to access health informa tion online Indication:Nonsmoker Start:16-Jun-2019 Instruction Type:Patient Education How to access health informa tion online - Detail Indication:Nonsmoker Start:16-Jun-2019 Instruction Type:Patient Education Patient Instructions Indication:Nonsmoker Start:16-Jun-2019 Instruction Type:Provider Instructions for Treatment [facility]; [facility] Work Phone: Instructions* Name Dates Details Patient Instructions Indication:Uncontrolled diabetes mellitus with hyperglycemia Start:30-Jun-2022 Instruction Type:Provider Instructions for Treatment How to Access Health Informa tion Online using Patient Portal and [employer] Apps Indication:Uncontrolled diabetes mellitus with hyperglycemia Start:30-Jun-2022 Instruction Type:Patient Education Patient Instructions Indication:Uncontrolled diabetes mellitus with hyperglycemia Start:01-Apr-2022 Instruction Type:Provider Instructions for Treatment How to Access Health Informa tion Online using Patient Portal and [employer] Apps Indication:Uncontrolled diabetes mellitus with hyperglycemia Start:01-Apr-2022 Instruction Type:Patient Education How to Access Health Informa tion Online using Patient Portal and [employer] Apps Indication:Uncontrolled diabetes mellitus with hyperglycemia Start:30-Dec-2021 Instruction Type:Patient Education Patient Instructions Indication:Uncontrolled diabetes mellitus with hyperglycemia Start:30-Dec-2021 Instruction Type:Provider Instructions for Treatment Patient Instructions Indication:BMI 36.0-36.9,adult Start:22-Sep-2021 Instruction Type:Provider Instructions for Treatment How to Access Health Informa tion Online using Patient Portal and [employer] Apps Indication:BMI 36.0-36.9,adult Start:22-Sep-2021 Instruction Type:Patient Education Patient Instructions Indication:Uncontrolled diabetes mellitus with hyperglycemia Start:12-May-2021 Instruction Type:Provider Instructions for Treatment How to Access Health Informa tion Online using Patient Portal and [employer] Apps Indication:Uncontrolled diabetes mellitus with hyperglycemia Start:12-May-2021 Instruction Type:Patient Education Patient Instructions Indication:Vitamin D deficiency Start:31-Jan-2021 Instruction Type:Provider Instructions for Treatment How to Access Health Informa tion Online using Patient Portal and [employer] Apps Indication:Uncontrolled diabetes mellitus with hyperglycemia Start:31-Jan-2021 Instruction Type:Patient Education Patient Instructions Indication:BMI 35.0-35.9,adult Start:28-Oct-2020 Instruction Type:Provider Instructions for Treatment How to Access Health Informa tion Online using Patient Portal and [employer] Apps Indication:BMI 35.0-35.9,adult Start:28-Oct-2020 Instruction Type:Patient Education Patient Instructions Indication:Former smoker Start:25-Sep-2020 Instruction Type:Provider Instructions for Treatment How to Access Health Informa tion Online using Patient Portal and [employer] Apps Indication:Former smoker Start:25-Sep-2020 Instruction Type:Patient Education Patient Instructions Indication:Carotid stenosis, left Start:22-Jul-2020 Instruction Type:Provider Instructions for Treatment How to Access Health Informa tion Online using Patient Portal and [employer] Apps Indication:Uncontrolled diabetes mellitus with hyperglycemia Start:22-Jul-2020 Instruction Type:Patient Education Patient Instructions Indication:BMI 34.0-34.9,adult Start:15-Apr-2020 Instruction Type:Provider Instructions for Treatment How to Access Health Informa tion Online using Patient Portal and [employer] Apps Indication:BMI 34.0-34.9,adult Start:15-Apr-2020 Instruction Type:Patient Education How to access health informa tion online Indication:Diabetes mellitus type II, controlled, with no complications (Renamed from Controlled type 2 diabetes mellitus without complication) Start:10-Jan-2020 Instruction Type:Patient Education How to access health informa tion online - Detail Indication:Diabetes mellitus type II, controlled, with no complications (Renamed from Controlled type 2 diabetes mellitus without complication) Start:10-Jan-2020 Instruction Type:Patient Education Patient Instructions Indication:Diabetes mellitus type II, controlled, with no complications (Renamed from Controlled type 2 diabetes mellitus without complication) Start:10-Jan-2020 Instruction Type:Provider Instructions for Treatment How to access health informa tion online Indication:Uncontrolled diabetes mellitus with hyperglycemia Start:25-Sep-2019 Instruction Type:Patient Education How to access health informa tion online - Detail Indication:Uncontrolled diabetes mellitus with hyperglycemia Start:25-Sep-2019 Instruction Type:Patient Education Patient Instructions Indication:Uncontrolled diabetes mellitus with hyperglycemia Start:25-Sep-2019 Instruction Type:Provider Instructions for Treatment How to access health informa tion online Indication:BMI 33.0-33.9,adult Start:07-Jul-2019 Instruction Type:Patient Education How to access health informa tion online - Detail Indication:BMI 33.0-33.9,adult Start:07-Jul-2019 Instruction Type:Patient Education Patient Instructions Indication:Cerebral microvascular disease Start:07-Jul-2019 Instruction Type:Provider Instructions for Treatment How to access health informa tion online Indication:Former smoker, stopped smoking in distant past Start:20-Jun-2019 Instruction Type:Patient Education How to access health informa tion online - Detail Indication:Former smoker, stopped smoking in distant past Start:20-Jun-2019 Instruction Type:Patient Education Patient Instructions Indication:Former smoker, stopped smoking in distant past Start:20-Jun-2019 Instruction Type:Provider Instructions for Treatment How to access health informa tion online Indication:Nonsmoker Start:16-Jun-2019 Instruction Type:Patient Education How to access health informa tion online - Detail Indication:Nonsmoker Start:16-Jun-2019 Instruction Type:Patient Education Patient Instructions Indication:Nonsmoker Start:16-Jun-2019 Instruction Type:Provider Instructions for Treatment [facility]; [facility] Work Phone: Instructions* Name Dates Details Patient Instructions Indication:Uncontrolled diabetes mellitus with hyperglycemia Start:30-Sep-2022 Instruction Type:Provider Instructions for Treatment How to Access Health Informa tion Online using Patient Portal and [employer] Apps Indication:Uncontrolled diabetes mellitus with hyperglycemia Start:30-Sep-2022 Instruction Type:Patient Education Patient Instructions Indication:Uncontrolled diabetes mellitus with hyperglycemia Start:30-Jun-2022 Instruction Type:Provider Instructions for Treatment How to Access Health Informa tion Online using Patient Portal and [employer] Apps Indication:Uncontrolled diabetes mellitus with hyperglycemia Start:30-Jun-2022 Instruction Type:Patient Education Patient Instructions Indication:Uncontrolled diabetes mellitus with hyperglycemia Start:01-Apr-2022 Instruction Type:Provider Instructions for Treatment How to Access Health Informa tion Online using Patient Portal and [employer] Apps Indication:Uncontrolled diabetes mellitus with hyperglycemia Start:01-Apr-2022 Instruction Type:Patient Education How to Access Health Informa tion Online using Patient Portal and [employer]rd [employer] Apps Indication:Uncontrolled diabetes mellitus with hyperglycemia Start:30-Dec-2021 Instruction Type:Patient Education Patient Instructions Indication:Uncontrolled diabetes mellitus with hyperglycemia Start:30-Dec-2021 Instruction Type:Provider Instructions for Treatment Patient Instructions Indication:BMI 36.0-36.9,adult Start:22-Sep-2021 Instruction Type:Provider Instructions for Treatment How to Access Health Informa tion Online using Patient Portal and [employer] Apps Indication:BMI 36.0-36.9,adult Start:22-Sep-2021 Instruction Type:Patient Education Patient Instructions Indication:Uncontrolled diabetes mellitus with hyperglycemia Start:12-May-2021 Instruction Type:Provider Instructions for Treatment How to Access Health Informa tion Online using Patient Portal and [employer] Apps Indication:Uncontrolled diabetes mellitus with hyperglycemia Start:12-May-2021 Instruction Type:Patient Education Patient Instructions Indication:Vitamin D deficiency Start:31-Jan-2021 Instruction Type:Provider Instructions for Treatment How to Access Health Informa tion Online using Patient Portal and [employer] Apps Indication:Uncontrolled diabetes mellitus with hyperglycemia Start:31-Jan-2021 Instruction Type:Patient Education Patient Instructions Indication:BMI 35.0-35.9,adult Start:28-Oct-2020 Instruction Type:Provider Instructions for Treatment How to Access Health Informa tion Online using Patient Portal and [employer]rd [employer] Apps Indication:BMI 35.0-35.9,adult Start:28-Oct-2020 Instruction Type:Patient Education Patient Instructions Indication:Former smoker Start:25-Sep-2020 Instruction Type:Provider Instructions for Treatment How to Access Health Informa tion Online using Patient Portal and [employer] Apps Indication:Former smoker Start:25-Sep-2020 Instruction Type:Patient Education Patient Instructions Indication:Carotid stenosis, left Start:22-Jul-2020 Instruction Type:Provider Instructions for Treatment How to Access Health Informa tion Online using Patient Portal and [employer]rd [employer] Apps Indication:Uncontrolled diabetes mellitus with hyperglycemia Start:22-Jul-2020 Instruction Type:Patient Education Patient Instructions Indication:BMI 34.0-34.9,adult Start:15-Apr-2020 Instruction Type:Provider Instructions for Treatment How to Access Health Informa tion Online using Patient Portal and [employer]rd [employer] Apps Indication:BMI 34.0-34.9,adult Start:15-Apr-2020 Instruction Type:Patient Education How to access health informa tion online Indication:Diabetes mellitus type II, controlled, with no complications (Renamed from Controlled type 2 diabetes mellitus without complication) Start:10-Jan-2020 Instruction Type:Patient Education How to access health informa tion online - Detail Indication:Diabetes mellitus type II, controlled, with no complications (Renamed from Controlled type 2 diabetes mellitus without complication) Start:10-Jan-2020 Instruction Type:Patient Education Patient Instructions Indication:Diabetes mellitus type II, controlled, with no complications (Renamed from Controlled type 2 diabetes mellitus without complication) Start:10-Jan-2020 Instruction Type:Provider Instructions for Treatment How to access health informa tion online Indication:Uncontrolled diabetes mellitus with hyperglycemia Start:25-Sep-2019 Instruction Type:Patient Education How to access health informa tion online - Detail Indication:Uncontrolled diabetes mellitus with hyperglycemia Start:25-Sep-2019 Instruction Type:Patient Education Patient Instructions Indication:Uncontrolled diabetes mellitus with hyperglycemia Start:25-Sep-2019 Instruction Type:Provider Instructions for Treatment How to access health informa tion online Indication:BMI 33.0-33.9,adult Start:07-Jul-2019 Instruction Type:Patient Education How to access health informa tion online - Detail Indication:BMI 33.0-33.9,adult Start:07-Jul-2019 Instruction Type:Patient Education Patient Instructions Indication:Cerebral microvascular disease Start:07-Jul-2019 Instruction Type:Provider Instructions for Treatment How to access health informa tion online Indication:Former smoker, stopped smoking in distant past Start:20-Jun-2019 Instruction Type:Patient Education How to access health informa tion online - Detail Indication:Former smoker, stopped smoking in distant past Start:20-Jun-2019 Instruction Type:Patient Education Patient Instructions Indication:Former smoker, stopped smoking in distant past Start:20-Jun-2019 Instruction Type:Provider Instructions for Treatment How to access health informa tion online Indication:Nonsmoker Start:16-Jun-2019 Instruction Type:Patient Education How to access health informa tion online - Detail Indication:Nonsmoker Start:16-Jun-2019 Instruction Type:Patient Education Patient Instructions Indication:Nonsmoker Start:16-Jun-2019 Instruction Type:Provider Instructions for Treatment [facility]; [facility] Work Phone: Instructions* Name Dates Details Patient Instructions Indication:BMI 35.0-35.9,adult Start:23-Nov-2022 Instruction Type:Provider Instructions for Treatment How to Access Health Informa tion Online using Patient Portal and [employer] Apps Indication:BMI 35.0-35.9,adult Start:23-Nov-2022 Instruction Type:Patient Education Patient Instructions Indication:Uncontrolled diabetes mellitus with hyperglycemia Start:30-Sep-2022 Instruction Type:Provider Instructions for Treatment How to Access Health Informa tion Online using Patient Portal and [employer] Apps Indication:Uncontrolled diabetes mellitus with hyperglycemia Start:30-Sep-2022 Instruction Type:Patient Education Patient Instructions Indication:Uncontrolled diabetes mellitus with hyperglycemia Start:30-Jun-2022 Instruction Type:Provider Instructions for Treatment How to Access Health Informa tion Online using Patient Portal and [employer] Apps Indication:Uncontrolled diabetes mellitus with hyperglycemia Start:30-Jun-2022 Instruction Type:Patient Education Patient Instructions Indication:Uncontrolled diabetes mellitus with hyperglycemia Start:01-Apr-2022 Instruction Type:Provider Instructions for Treatment How to Access Health Informa tion Online using Patient Portal and [employer] Apps Indication:Uncontrolled diabetes mellitus with hyperglycemia Start:01-Apr-2022 Instruction Type:Patient Education How to Access Health Informa tion Online using Patient Portal and [employer] Apps Indication:Uncontrolled diabetes mellitus with hyperglycemia Start:30-Dec-2021 Instruction Type:Patient Education Patient Instructions Indication:Uncontrolled diabetes mellitus with hyperglycemia Start:30-Dec-2021 Instruction Type:Provider Instructions for Treatment Patient Instructions Indication:BMI 36.0-36.9,adult Start:22-Sep-2021 Instruction Type:Provider Instructions for Treatment How to Access Health Informa tion Online using Patient Portal and [employer] Apps Indication:BMI 36.0-36.9,adult Start:22-Sep-2021 Instruction Type:Patient Education Patient Instructions Indication:Uncontrolled diabetes mellitus with hyperglycemia Start:12-May-2021 Instruction Type:Provider Instructions for Treatment How to Access Health Informa tion Online using Patient Portal and [employer] Apps Indication:Uncontrolled diabetes mellitus with hyperglycemia Start:12-May-2021 Instruction Type:Patient Education Patient Instructions Indication:Vitamin D deficiency Start:31-Jan-2021 Instruction Type:Provider Instructions for Treatment How to Access Health Informa tion Online using Patient Portal and [employer] Apps Indication:Uncontrolled diabetes mellitus with hyperglycemia Start:31-Jan-2021 Instruction Type:Patient Education Patient Instructions Indication:BMI 35.0-35.9,adult Start:28-Oct-2020 Instruction Type:Provider Instructions for Treatment How to Access Health Informa tion Online using Patient Portal and [employer] Apps Indication:BMI 35.0-35.9,adult Start:28-Oct-2020 Instruction Type:Patient Education Patient Instructions Indication:Former smoker Start:25-Sep-2020 Instruction Type:Provider Instructions for Treatment How to Access Health Informa tion Online using Patient Portal and [employer] Apps Indication:Former smoker Start:25-Sep-2020 Instruction Type:Patient Education Patient Instructions Indication:Carotid stenosis, left Start:22-Jul-2020 Instruction Type:Provider Instructions for Treatment How to Access Health Informa tion Online using Patient Portal and [employer] Apps Indication:Uncontrolled diabetes mellitus with hyperglycemia Start:22-Jul-2020 Instruction Type:Patient Education Patient Instructions Indication:BMI 34.0-34.9,adult Start:15-Apr-2020 Instruction Type:Provider Instructions for Treatment How to Access Health Informa tion Online using Patient Portal and [employer] Apps Indication:BMI 34.0-34.9,adult Start:15-Apr-2020 Instruction Type:Patient Education How to access health informa tion online Indication:Diabetes mellitus type II, controlled, with no complications (Renamed from Controlled type 2 diabetes mellitus without complication) Start:10-Jan-2020 Instruction Type:Patient Education How to access health informa tion online - Detail Indication:Diabetes mellitus type II, controlled, with no complications (Renamed from Controlled type 2 diabetes mellitus without complication) Start:10-Jan-2020 Instruction Type:Patient Education Patient Instructions Indication:Diabetes mellitus type II, controlled, with no complications (Renamed from Controlled type 2 diabetes mellitus without complication) Start:10-Jan-2020 Instruction Type:Provider Instructions for Treatment How to access health informa tion online Indication:Uncontrolled diabetes mellitus with hyperglycemia Start:25-Sep-2019 Instruction Type:Patient Education How to access health informa tion online - Detail Indication:Uncontrolled diabetes mellitus with hyperglycemia Start:25-Sep-2019 Instruction Type:Patient Education Patient Instructions Indication:Uncontrolled diabetes mellitus with hyperglycemia Start:25-Sep-2019 Instruction Type:Provider Instructions for Treatment How to access health informa tion online Indication:BMI 33.0-33.9,adult Start:07-Jul-2019 Instruction Type:Patient Education How to access health informa tion online - Detail Indication:BMI 33.0-33.9,adult Start:07-Jul-2019 Instruction Type:Patient Education Patient Instructions Indication:Cerebral microvascular disease Start:07-Jul-2019 Instruction Type:Provider Instructions for Treatment How to access health informa tion online Indication:Former smoker, stopped smoking in distant past Start:20-Jun-2019 Instruction Type:Patient Education How to access health informa tion online - Detail Indication:Former smoker, stopped smoking in distant past Start:20-Jun-2019 Instruction Type:Patient Education Patient Instructions Indication:Former smoker, stopped smoking in distant past Start:20-Jun-2019 Instruction Type:Provider Instructions for Treatment How to access health informa tion online Indication:Nonsmoker Start:16-Jun-2019 Instruction Type:Patient Education How to access health informa tion online - Detail Indication:Nonsmoker Start:16-Jun-2019 Instruction Type:Patient Education Patient Instructions Indication:Nonsmoker Start:16-Jun-2019 Instruction Type:Provider Instructions for Treatment [facility]; [facility] Work Phone: Instructions* Name Dates Details Patient Instructions Indication:BMI 35.0-35.9,adult Start:23-Nov-2022 Instruction Type:Provider Instructions for Treatment How to Access Health Informa tion Online using Patient Portal and [employer] Apps Indication:BMI 35.0-35.9,adult Start:23-Nov-2022 Instruction Type:Patient Education Patient Instructions Indication:Uncontrolled diabetes mellitus with hyperglycemia Start:30-Sep-2022 Instruction Type:Provider Instructions for Treatment How to Access Health Informa tion Online using Patient Portal and [employer] Apps Indication:Uncontrolled diabetes mellitus with hyperglycemia Start:30-Sep-2022 Instruction Type:Patient Education Patient Instructions Indication:Uncontrolled diabetes mellitus with hyperglycemia Start:30-Jun-2022 Instruction Type:Provider Instructions for Treatment How to Access Health Informa tion Online using Patient Portal and [employer] Apps Indication:Uncontrolled diabetes mellitus with hyperglycemia Start:30-Jun-2022 Instruction Type:Patient Education Patient Instructions Indication:Uncontrolled diabetes mellitus with hyperglycemia Start:01-Apr-2022 Instruction Type:Provider Instructions for Treatment How to Access Health Informa tion Online using Patient Portal and [employer] Apps Indication:Uncontrolled diabetes mellitus with hyperglycemia Start:01-Apr-2022 Instruction Type:Patient Education How to Access Health Informa tion Online using Patient Portal and [employer] Apps Indication:Uncontrolled diabetes mellitus with hyperglycemia Start:30-Dec-2021 Instruction Type:Patient Education Patient Instructions Indication:Uncontrolled diabetes mellitus with hyperglycemia Start:30-Dec-2021 Instruction Type:Provider Instructions for Treatment Patient Instructions Indication:BMI 36.0-36.9,adult Start:22-Sep-2021 Instruction Type:Provider Instructions for Treatment How to Access Health Informa tion Online using Patient Portal and [employer] Apps Indication:BMI 36.0-36.9,adult Start:22-Sep-2021 Instruction Type:Patient Education Patient Instructions Indication:Uncontrolled diabetes mellitus with hyperglycemia Start:12-May-2021 Instruction Type:Provider Instructions for Treatment How to Access Health Informa tion Online using Patient Portal and [employer] Apps Indication:Uncontrolled diabetes mellitus with hyperglycemia Start:12-May-2021 Instruction Type:Patient Education Patient Instructions Indication:Vitamin D deficiency Start:31-Jan-2021 Instruction Type:Provider Instructions for Treatment How to Access Health Informa tion Online using Patient Portal and [employer] Apps Indication:Uncontrolled diabetes mellitus with hyperglycemia Start:31-Jan-2021 Instruction Type:Patient Education Patient Instructions Indication:BMI 35.0-35.9,adult Start:28-Oct-2020 Instruction Type:Provider Instructions for Treatment How to Access Health Informa tion Online using Patient Portal and [employer] Apps Indication:BMI 35.0-35.9,adult Start:28-Oct-2020 Instruction Type:Patient Education Patient Instructions Indication:Former smoker Start:25-Sep-2020 Instruction Type:Provider Instructions for Treatment How to Access Health Informa tion Online using Patient Portal and [employer] Apps Indication:Former smoker Start:25-Sep-2020 Instruction Type:Patient Education Patient Instructions Indication:Carotid stenosis, left Start:22-Jul-2020 Instruction Type:Provider Instructions for Treatment How to Access Health Informa tion Online using Patient Portal and [employer] Apps Indication:Uncontrolled diabetes mellitus with hyperglycemia Start:22-Jul-2020 Instruction Type:Patient Education Patient Instructions Indication:BMI 34.0-34.9,adult Start:15-Apr-2020 Instruction Type:Provider Instructions for Treatment How to Access Health Informa tion Online using Patient Portal and [employer] Apps Indication:BMI 34.0-34.9,adult Start:15-Apr-2020 Instruction Type:Patient Education How to access health informa tion online Indication:Diabetes mellitus type II, controlled, with no complications (Renamed from Controlled type 2 diabetes mellitus without complication) Start:10-Jan-2020 Instruction Type:Patient Education How to access health informa tion online - Detail Indication:Diabetes mellitus type II, controlled, with no complications (Renamed from Controlled type 2 diabetes mellitus without complication) Start:10-Jan-2020 Instruction Type:Patient Education Patient Instructions Indication:Diabetes mellitus type II, controlled, with no complications (Renamed from Controlled type 2 diabetes mellitus without complication) Start:10-Jan-2020 Instruction Type:Provider Instructions for Treatment How to access health informa tion online Indication:Uncontrolled diabetes mellitus with hyperglycemia Start:25-Sep-2019 Instruction Type:Patient Education How to access health informa tion online - Detail Indication:Uncontrolled diabetes mellitus with hyperglycemia Start:25-Sep-2019 Instruction Type:Patient Education Patient Instructions Indication:Uncontrolled diabetes mellitus with hyperglycemia Start:25-Sep-2019 Instruction Type:Provider Instructions for Treatment How to access health informa tion online Indication:BMI 33.0-33.9,adult Start:07-Jul-2019 Instruction Type:Patient Education How to access health informa tion online - Detail Indication:BMI 33.0-33.9,adult Start:07-Jul-2019 Instruction Type:Patient Education Patient Instructions Indication:Cerebral microvascular disease Start:07-Jul-2019 Instruction Type:Provider Instructions for Treatment How to access health informa tion online Indication:Former smoker, stopped smoking in distant past Start:20-Jun-2019 Instruction Type:Patient Education How to access health informa tion online - Detail Indication:Former smoker, stopped smoking in distant past Start:20-Jun-2019 Instruction Type:Patient Education Patient Instructions Indication:Former smoker, stopped smoking in distant past Start:20-Jun-2019 Instruction Type:Provider Instructions for Treatment How to access health informa tion online Indication:Nonsmoker Start:16-Jun-2019 Instruction Type:Patient Education How to access health informa tion online - Detail Indication:Nonsmoker Start:16-Jun-2019 Instruction Type:Patient Education Patient Instructions Indication:Nonsmoker Start:16-Jun-2019 Instruction Type:Provider Instructions for Treatment [facility]; [facility] Work Phone: Instructions* Name Dates Details Patient Instructions Indication:BMI 35.0-35.9,adult Start:01-Jan-2023 Instruction Type:Provider Instructions for Treatment How to Access Health Informa tion Online using Patient Portal and [employer] Apps Indication:BMI 35.0-35.9,adult Start:01-Jan-2023 Instruction Type:Patient Education Patient Instructions Indication:BMI 35.0-35.9,adult Start:23-Nov-2022 Instruction Type:Provider Instructions for Treatment How to Access Health Informa tion Online using Patient Portal and [employer] Apps Indication:BMI 35.0-35.9,adult Start:23-Nov-2022 Instruction Type:Patient Education Patient Instructions Indication:Uncontrolled diabetes mellitus with hyperglycemia Start:30-Sep-2022 Instruction Type:Provider Instructions for Treatment How to Access Health Informa tion Online using Patient Portal and [employer] Apps Indication:Uncontrolled diabetes mellitus with hyperglycemia Start:30-Sep-2022 Instruction Type:Patient Education Patient Instructions Indication:Uncontrolled diabetes mellitus with hyperglycemia Start:30-Jun-2022 Instruction Type:Provider Instructions for Treatment How to Access Health Informa tion Online using Patient Portal and [employer] Apps Indication:Uncontrolled diabetes mellitus with hyperglycemia Start:30-Jun-2022 Instruction Type:Patient Education Patient Instructions Indication:Uncontrolled diabetes mellitus with hyperglycemia Start:01-Apr-2022 Instruction Type:Provider Instructions for Treatment How to Access Health Informa tion Online using Patient Portal and [employer] Apps Indication:Uncontrolled diabetes mellitus with hyperglycemia Start:01-Apr-2022 Instruction Type:Patient Education How to Access Health Informa tion Online using Patient Portal and [employer] Apps Indication:Uncontrolled diabetes mellitus with hyperglycemia Start:30-Dec-2021 Instruction Type:Patient Education Patient Instructions Indication:Uncontrolled diabetes mellitus with hyperglycemia Start:30-Dec-2021 Instruction Type:Provider Instructions for Treatment Patient Instructions Indication:BMI 36.0-36.9,adult Start:22-Sep-2021 Instruction Type:Provider Instructions for Treatment How to Access Health Informa tion Online using Patient Portal and [employer] Apps Indication:BMI 36.0-36.9,adult Start:22-Sep-2021 Instruction Type:Patient Education Patient Instructions Indication:Uncontrolled diabetes mellitus with hyperglycemia Start:12-May-2021 Instruction Type:Provider Instructions for Treatment How to Access Health Informa tion Online using Patient Portal and [employer] Apps Indication:Uncontrolled diabetes mellitus with hyperglycemia Start:12-May-2021 Instruction Type:Patient Education Patient Instructions Indication:Vitamin D deficiency Start:31-Jan-2021 Instruction Type:Provider Instructions for Treatment How to Access Health Informa tion Online using Patient Portal and [employer] Apps Indication:Uncontrolled diabetes mellitus with hyperglycemia Start:31-Jan-2021 Instruction Type:Patient Education Patient Instructions Indication:BMI 35.0-35.9,adult Start:28-Oct-2020 Instruction Type:Provider Instructions for Treatment How to Access Health Informa tion Online using Patient Portal and [employer] Apps Indication:BMI 35.0-35.9,adult Start:28-Oct-2020 Instruction Type:Patient Education Patient Instructions Indication:Former smoker Start:25-Sep-2020 Instruction Type:Provider Instructions for Treatment How to Access Health Informa tion Online using Patient Portal and [employer] Apps Indication:Former smoker Start:25-Sep-2020 Instruction Type:Patient Education Patient Instructions Indication:Carotid stenosis, left Start:22-Jul-2020 Instruction Type:Provider Instructions for Treatment How to Access Health Informa tion Online using Patient Portal and [employer] Apps Indication:Uncontrolled diabetes mellitus with hyperglycemia Start:22-Jul-2020 Instruction Type:Patient Education Patient Instructions Indication:BMI 34.0-34.9,adult Start:15-Apr-2020 Instruction Type:Provider Instructions for Treatment How to Access Health Informa tion Online using Patient Portal and [employer] Apps Indication:BMI 34.0-34.9,adult Start:15-Apr-2020 Instruction Type:Patient Education How to access health informa tion online Indication:Diabetes mellitus type II, controlled, with no complications (Renamed from Controlled type 2 diabetes mellitus without complication) Start:10-Jan-2020 Instruction Type:Patient Education How to access health informa tion online - Detail Indication:Diabetes mellitus type II, controlled, with no complications (Renamed from Controlled type 2 diabetes mellitus without complication) Start:10-Jan-2020 Instruction Type:Patient Education Patient Instructions Indication:Diabetes mellitus type II, controlled, with no complications (Renamed from Controlled type 2 diabetes mellitus without complication) Start:10-Jan-2020 Instruction Type:Provider Instructions for Treatment How to access health informa tion online Indication:Uncontrolled diabetes mellitus with hyperglycemia Start:25-Sep-2019 Instruction Type:Patient Education How to access health informa tion online - Detail Indication:Uncontrolled diabetes mellitus with hyperglycemia Start:25-Sep-2019 Instruction Type:Patient Education Patient Instructions Indication:Uncontrolled diabetes mellitus with hyperglycemia Start:25-Sep-2019 Instruction Type:Provider Instructions for Treatment How to access health informa tion online Indication:BMI 33.0-33.9,adult Start:07-Jul-2019 Instruction Type:Patient Education How to access health informa tion online - Detail Indication:BMI 33.0-33.9,adult Start:07-Jul-2019 Instruction Type:Patient Education Patient Instructions Indication:Cerebral microvascular disease Start:07-Jul-2019 Instruction Type:Provider Instructions for Treatment How to access health informa tion online Indication:Former smoker, stopped smoking in distant past Start:20-Jun-2019 Instruction Type:Patient Education How to access health informa tion online - Detail Indication:Former smoker, stopped smoking in distant past Start:20-Jun-2019 Instruction Type:Patient Education Patient Instructions Indication:Former smoker, stopped smoking in distant past Start:20-Jun-2019 Instruction Type:Provider Instructions for Treatment How to access health informa tion online Indication:Nonsmoker Start:16-Jun-2019 Instruction Type:Patient Education How to access health informa tion online - Detail Indication:Nonsmoker Start:16-Jun-2019 Instruction Type:Patient Education Patient Instructions Indication:Nonsmoker Start:16-Jun-2019 Instruction Type:Provider Instructions for Treatment [facility]; [facility] Work Phone: Instructions* Name Dates Details Patient Instructions Indication:BMI 35.0-35.9,adult Start:01-Jan-2023 Instruction Type:Provider Instructions for Treatment How to Access Health Informa tion Online using Patient Portal and 3rd [employer] Apps Indication:BMI 35.0-35.9,adult Start:01-Jan-2023 Instruction Type:Patient Education Patient Instructions Indication:BMI 35.0-35.9,adult Start:23-Nov-2022 Instruction Type:Provider Instructions for Treatment How to Access Health Informa tion Online using Patient Portal and 3rd [employer] Apps Indication:BMI 35.0-35.9,adult Start:23-Nov-2022 Instruction Type:Patient Education Patient Instructions Indication:Uncontrolled diabetes mellitus with hyperglycemia Start:30-Sep-2022 Instruction Type:Provider Instructions for Treatment How to Access Health Informa tion Online using Patient Portal and [employer] Apps Indication:Uncontrolled diabetes mellitus with hyperglycemia Start:30-Sep-2022 Instruction Type:Patient Education Patient Instructions Indication:Uncontrolled diabetes mellitus with hyperglycemia Start:30-Jun-2022 Instruction Type:Provider Instructions for Treatment How to Access Health Informa tion Online using Patient Portal and [employer] Apps Indication:Uncontrolled diabetes mellitus with hyperglycemia Start:30-Jun-2022 Instruction Type:Patient Education Patient Instructions Indication:Uncontrolled diabetes mellitus with hyperglycemia Start:01-Apr-2022 Instruction Type:Provider Instructions for Treatment How to Access Health Informa tion Online using Patient Portal and [employer] Apps Indication:Uncontrolled diabetes mellitus with hyperglycemia Start:01-Apr-2022 Instruction Type:Patient Education How to Access Health Informa tion Online using Patient Portal and [employer] Apps Indication:Uncontrolled diabetes mellitus with hyperglycemia Start:30-Dec-2021 Instruction Type:Patient Education Patient Instructions Indication:Uncontrolled diabetes mellitus with hyperglycemia Start:30-Dec-2021 Instruction Type:Provider Instructions for Treatment Patient Instructions Indication:BMI 36.0-36.9,adult Start:22-Sep-2021 Instruction Type:Provider Instructions for Treatment How to Access Health Informa tion Online using Patient Portal and 3rd [employer] Apps Indication:BMI 36.0-36.9,adult Start:22-Sep-2021 Instruction Type:Patient Education Patient Instructions Indication:Uncontrolled diabetes mellitus with hyperglycemia Start:12-May-2021 Instruction Type:Provider Instructions for Treatment How to Access Health Informa tion Online using Patient Portal and 3rd [employer] Apps Indication:Uncontrolled diabetes mellitus with hyperglycemia Start:12-May-2021 Instruction Type:Patient Education Patient Instructions Indication:Vitamin D deficiency Start:31-Jan-2021 Instruction Type:Provider Instructions for Treatment How to Access Health Informa tion Online using Patient Portal and 3rd [employer] Apps Indication:Uncontrolled diabetes mellitus with hyperglycemia Start:31-Jan-2021 Instruction Type:Patient Education Patient Instructions Indication:BMI 35.0-35.9,adult Start:28-Oct-2020 Instruction Type:Provider Instructions for Treatment How to Access Health Informa tion Online using Patient Portal and 3rd [employer] Apps Indication:BMI 35.0-35.9,adult Start:28-Oct-2020 Instruction Type:Patient Education Patient Instructions Indication:Former smoker Start:25-Sep-2020 Instruction Type:Provider Instructions for Treatment How to Access Health Informa tion Online using Patient Portal and 3rd [employer] Apps Indication:Former smoker Start:25-Sep-2020 Instruction Type:Patient Education Patient Instructions Indication:Carotid stenosis, left Start:22-Jul-2020 Instruction Type:Provider Instructions for Treatment How to Access Health Informa tion Online using Patient Portal and 3rd [employer] Apps Indication:Uncontrolled diabetes mellitus with hyperglycemia Start:22-Jul-2020 Instruction Type:Patient Education Patient Instructions Indication:BMI 34.0-34.9,adult Start:15-Apr-2020 Instruction Type:Provider Instructions for Treatment How to Access Health Informa tion Online using Patient Portal and [employer] Apps Indication:BMI 34.0-34.9,adult Start:15-Apr-2020 Instruction Type:Patient Education How to access health informa tion online Indication:Diabetes mellitus type II, controlled, with no complications (Renamed from Controlled type 2 diabetes mellitus without complication) Start:10-Jan-2020 Instruction Type:Patient Education How to access health informa tion online - Detail Indication:Diabetes mellitus type II, controlled, with no complications (Renamed from Controlled type 2 diabetes mellitus without complication) Start:10-Jan-2020 Instruction Type:Patient Education Patient Instructions Indication:Diabetes mellitus type II, controlled, with no complications (Renamed from Controlled type 2 diabetes mellitus without complication) Start:10-Jan-2020 Instruction Type:Provider Instructions for Treatment How to access health informa tion online Indication:Uncontrolled diabetes mellitus with hyperglycemia Start:25-Sep-2019 Instruction Type:Patient Education How to access health informa tion online - Detail Indication:Uncontrolled diabetes mellitus with hyperglycemia Start:25-Sep-2019 Instruction Type:Patient Education Patient Instructions Indication:Uncontrolled diabetes mellitus with hyperglycemia Start:25-Sep-2019 Instruction Type:Provider Instructions for Treatment How to access health informa tion online Indication:BMI 33.0-33.9,adult Start:07-Jul-2019 Instruction Type:Patient Education How to access health informa tion online - Detail Indication:BMI 33.0-33.9,adult Start:07-Jul-2019 Instruction Type:Patient Education Patient Instructions Indication:Cerebral microvascular disease Start:07-Jul-2019 Instruction Type:Provider Instructions for Treatment How to access health informa tion online Indication:Former smoker, stopped smoking in distant past Start:20-Jun-2019 Instruction Type:Patient Education How to access health informa tion online - Detail Indication:Former smoker, stopped smoking in distant past Start:20-Jun-2019 Instruction Type:Patient Education Patient Instructions Indication:Former smoker, stopped smoking in distant past Start:20-Jun-2019 Instruction Type:Provider Instructions for Treatment How to access health informa tion online Indication:Nonsmoker Start:16-Jun-2019 Instruction Type:Patient Education How to access health informa tion online - Detail Indication:Nonsmoker Start:16-Jun-2019 Instruction Type:Patient Education Patient Instructions Indication:Nonsmoker Start:16-Jun-2019 Instruction Type:Provider Instructions for Treatment [facility]; [facility] Work Phone: Family History Unknown Family Member Name Dates Details Brother 1 Comments:DM, heart Dz Status:Active Father Comments:heart Dz, DM Status:Active HTN Comments:mother father broth er sister Status:Active Mother Comments:CVA, DM, Heart DZ Status:Active Unknown Family Member Name Dates Details Brother 1 Comments:DM, heart Dz Status:Active Father Comments:heart Dz, DM Status:Active HTN Comments:mother father broth er sister Status:Active Mother Comments:CVA, DM, Heart DZ Status:Active Unknown Family Member Name Dates Details Brother 1 Comments:DM, heart Dz Status:Active Father Comments:heart Dz, DM Status:Active HTN Comments:mother father broth er sister Status:Active Mother Comments:CVA, DM, Heart DZ Status:Active Unknown Family Member Name Dates Details Brother 1 Comments:DM, heart Dz Status:Active Father Comments:heart Dz, DM Status:Active HTN Comments:mother father broth er sister Status:Active Mother Comments:CVA, DM, Heart DZ Status:Active Unknown Family Member Name Dates Details Brother 1 Comments:DM, heart Dz Status:Active Father Comments:heart Dz, DM Status:Active HTN Comments:mother father broth er sister Status:Active Mother Comments:CVA, DM, Heart DZ Status:Active Unknown Family Member Name Dates Details Brother 1 Comments:DM, heart Dz Status:Active Father Comments:heart Dz, DM Status:Active HTN Comments:mother father broth er sister Status:Active Mother Comments:CVA, DM, Heart DZ Status:Active Unknown Family Member Name Dates Details Brother 1 Comments:DM, heart Dz Status:Active Father Comments:heart Dz, DM Status:Active HTN Comments:mother father broth er sister Status:Active Mother Comments:CVA, DM, Heart DZ Status:Active Unknown Family Member Name Dates Details Brother 1 Comments:DM, heart Dz Status:Active Father Comments:heart Dz, DM Status:Active HTN Comments:mother father broth er sister Status:Active Mother Comments:CVA, DM, Heart DZ Status:Active Unknown Family Member Name Dates Details Brother 1 Comments:DM, heart Dz Status:Active Father Comments:heart Dz, DM Status:Active HTN Comments:mother father broth er sister Status:Active Mother Comments:CVA, DM, Heart DZ Status:Active Unknown Family Member Name Dates Details Brother 1 Comments:DM, heart Dz Status:Active Father Comments:heart Dz, DM Status:Active HTN Comments:mother father broth er sister Status:Active Mother Comments:CVA, DM, Heart DZ Status:Active Unknown Family Member Name Dates Details Brother 1 Comments:DM, heart Dz Status:Active Father Comments:heart Dz, DM Status:Active HTN Comments:mother father broth er sister Status:Active Mother Comments:CVA, DM, Heart DZ Status:Active Unknown Family Member Name Dates Details Brother 1 Comments:DM, heart Dz Status:Active Father Comments:heart Dz, DM Status:Active HTN Comments:mother father broth er sister Status:Active Mother Comments:CVA, DM, Heart DZ Status:Active Unknown Family Member Name Dates Details Brother 1 Comments:DM, heart Dz Status:Active Father Comments:heart Dz, DM Status:Active HTN Comments:mother father broth er sister Status:Active Mother Comments:CVA, DM, Heart DZ Status:Active Unknown Family Member Name Dates Details Brother 1 Comments:DM, heart Dz Status:Active Father Comments:heart Dz, DM Status:Active HTN Comments:mother father broth er sister Status:Active Mother Comments:CVA, DM, Heart DZ Status:Active Unknown Family Member Name Dates Details Brother 1 Comments:DM, heart Dz Status:Active Father Comments:heart Dz, DM Status:Active HTN Comments:mother father broth er sister Status:Active Mother Comments:CVA, DM, Heart DZ Status:Active Unknown Family Member Name Dates Details Brother 1 Comments:DM, heart Dz Status:Active Father Comments:heart Dz, DM Status:Active HTN Comments:mother father broth er sister Status:Active Mother Comments:CVA, DM, Heart DZ Status:Active Unknown Family Member Name Dates Details Brother 1 Comments:DM, heart Dz Status:Active Father Comments:heart Dz, DM Status:Active HTN Comments:mother father broth er sister Status:Active Mother Comments:CVA, DM, Heart DZ Status:Active Unknown Family Member Name Dates Details Brother 1 Comments:DM, heart Dz Status:Active Father Comments:heart Dz, DM Status:Active HTN Comments:mother father broth er sister Status:Active Mother Comments:CVA, DM, Heart DZ Status:Active Unknown Family Member Name Dates Details Brother 1 Comments:DM, heart Dz Status:Active Father Comments:heart Dz, DM Status:Active HTN Comments:mother father broth er sister Status:Active Mother Comments:CVA, DM, Heart DZ Status:Active Unknown Family Member Name Dates Details Brother 1 Comments:DM, heart Dz Status:Active Father Comments:heart Dz, DM Status:Active HTN Comments:mother father broth er sister Status:Active Mother Comments:CVA, DM, Heart DZ Status:Active Unknown Family Member Name Dates Details Brother 1 Comments:DM, heart Dz Status:Active Father Comments:heart Dz, DM Status:Active HTN Comments:mother father broth er sister Status:Active Mother Comments:CVA, DM, Heart DZ Status:Active Unknown Family Member Name Dates Details Brother 1 Comments:DM, heart Dz Status:Active Father Comments:heart Dz, DM Status:Active HTN Comments:mother father broth er sister Status:Active Mother Comments:CVA, DM, Heart DZ Status:Active Unknown Family Member Name Dates Details Brother 1 Comments:DM, heart Dz Status:Active Father Comments:heart Dz, DM Status:Active HTN Comments:mother father broth er sister Status:Active Mother Comments:CVA, DM, Heart DZ Status:Active Unknown Family Member Name Dates Details Brother 1 Comments:DM, heart Dz Status:Active Father Comments:heart Dz, DM Status:Active HTN Comments:mother father broth er sister Status:Active Mother Comments:CVA, DM, Heart DZ Status:Active Unknown Family Member Name Dates Details Brother 1 Comments:DM, heart Dz Status:Active Father Comments:heart Dz, DM Status:Active HTN Comments:mother father broth er sister Status:Active Mother Comments:CVA, DM, Heart DZ Status:Active Unknown Family Member Name Dates Details Brother 1 Comments:DM, heart Dz Status:Active Father Comments:heart Dz, DM Status:Active HTN Comments:mother father broth er sister Status:Active Mother Comments:CVA, DM, Heart DZ Status:Active Unknown Family Member Name Dates Details Brother 1 Comments:DM, heart Dz Status:Active Father Comments:heart Dz, DM Status:Active HTN Comments:mother father broth er sister Status:Active Mother Comments:CVA, DM, Heart DZ Status:Active Unknown Family Member Name Dates Details Brother 1 Comments:DM, heart Dz Status:Active Father Comments:heart Dz, DM Status:Active HTN Comments:mother father broth er sister Status:Active Mother Comments:CVA, DM, Heart DZ Status:Active Unknown Family Member Name Dates Details Brother 1 Comments:DM, heart Dz Status:Active Father Comments:heart Dz, DM Status:Active HTN Comments:mother father broth er sister Status:Active Mother Comments:CVA, DM, Heart DZ Status:Active Unknown Family Member Name Dates Details Brother 1 Comments:DM, heart Dz Status:Active Father Comments:heart Dz, DM Status:Active HTN Comments:mother father broth er sister Status:Active Mother Comments:CVA, DM, Heart DZ Status:Active Unknown Family Member Name Dates Details Brother 1 Comments:DM, heart Dz Status:Active Father Comments:heart Dz, DM Status:Active HTN Comments:mother father broth er sister Status:Active Mother Comments:CVA, DM, Heart DZ Status:Active Unknown Family Member Name Dates Details Brother 1 Comments:DM, heart Dz Status:Active Father Comments:heart Dz, DM Status:Active HTN Comments:mother father broth er sister Status:Active Mother Comments:CVA, DM, Heart DZ Status:Active Unknown Family Member Name Dates Details Brother 1 Comments:DM, heart Dz Status:Active Father Comments:heart Dz, DM Status:Active HTN Comments:mother father broth er sister Status:Active Mother Comments:CVA, DM, Heart DZ Status:Active Unknown Family Member Name Dates Details Brother 1 Comments:DM, heart Dz Status:Active Father Comments:heart Dz, DM Status:Active HTN Comments:mother father broth er sister Status:Active Mother Comments:CVA, DM, Heart DZ Status:Active Unknown Family Member Name Dates Details Brother 1 Comments:DM, heart Dz Status:Active Father Comments:heart Dz, DM Status:Active HTN Comments:mother father broth er sister Status:Active Mother Comments:CVA, DM, Heart DZ Status:Active Unknown Family Member Name Dates Details Brother 1 Comments:DM, heart Dz Status:Active Father Comments:heart Dz, DM Status:Active HTN Comments:mother father broth er sister Status:Active Mother Comments:CVA, DM, Heart DZ Status:Active Unknown Family Member Name Dates Details Brother 1 Comments:DM, heart Dz Status:Active Father Comments:heart Dz, DM Status:Active HTN Comments:mother father broth er sister Status:Active Mother Comments:CVA, DM, Heart DZ Status:Active Unknown Family Member Name Dates Details Brother 1 Comments:DM, heart Dz Status:Active Father Comments:heart Dz, DM Status:Active HTN Comments:mother father broth er sister Status:Active Mother Comments:CVA, DM, Heart DZ Status:Active Unknown Family Member Name Dates Details Brother 1 Comments:DM, heart Dz Status:Active Father Comments:heart Dz, DM Status:Active HTN Comments:mother father broth er sister Status:Active Mother Comments:CVA, DM, Heart DZ Status:Active Unknown Family Member Name Dates Details Brother 1 Comments:DM, heart Dz Status:Active Father Comments:heart Dz, DM Status:Active HTN Comments:mother father broth er sister Status:Active Mother Comments:CVA, DM, Heart DZ Status:Active Unknown Family Member Name Dates Details Brother 1 Comments:DM, heart Dz Status:Active Father Comments:heart Dz, DM Status:Active HTN Comments:mother father broth er sister Status:Active Mother Comments:CVA, DM, Heart DZ Status:Active Unknown Family Member Name Dates Details Brother 1 Comments:DM, heart Dz Status:Active Father Comments:heart Dz, DM Status:Active HTN Comments:mother father broth er sister Status:Active Mother Comments:CVA, DM, Heart DZ Status:Active Instructions Name Dates Details How to access health informa tion online Indication:BMI 33.0-33.9,adult Start:07-Jul-2019 Instruction Type:Patient Education How to access health informa tion online - Detail Indication:BMI 33.0-33.9,adult Start:07-Jul-2019 Instruction Type:Patient Education Patient Instructions Indication:Cerebral microvascular disease Start:07-Jul-2019 Instruction Type:Provider Instructions for Treatment How to access health informa tion online Indication:Former smoker, stopped smoking in distant past Start:20-Jun-2019 Instruction Type:Patient Education How to access health informa tion online - Detail Indication:Former smoker, stopped smoking in distant past Start:20-Jun-2019 Instruction Type:Patient Education Patient Instructions Indication:Former smoker, stopped smoking in distant past Start:20-Jun-2019 Instruction Type:Provider Instructions for Treatment How to access health informa tion online Indication:Nonsmoker Start:16-Jun-2019 Instruction Type:Patient Education How to access health informa tion online - Detail Indication:Nonsmoker Start:16-Jun-2019 Instruction Type:Patient Education Patient Instructions Indication:Nonsmoker Start:16-Jun-2019 Instruction Type:Provider Instructions for Treatment Name Dates Details How to access health informa tion online Indication:Diabetes mellitus type 2, uncontrolled (Renamed from Uncontrolled type 2 diabetes mellitus) Start:25-Sep-2019 Instruction Type:Patient Education How to access health informa tion online - Detail Indication:Diabetes mellitus type 2, uncontrolled (Renamed from Uncontrolled type 2 diabetes mellitus) Start:25-Sep-2019 Instruction Type:Patient Education Patient Instructions Indication:Diabetes mellitus type 2, uncontrolled (Renamed from Uncontrolled type 2 diabetes mellitus) Start:25-Sep-2019 Instruction Type:Provider Instructions for Treatment How to access health informa tion online Indication:BMI 33.0-33.9,adult Start:07-Jul-2019 Instruction Type:Patient Education How to access health informa tion online - Detail Indication:BMI 33.0-33.9,adult Start:07-Jul-2019 Instruction Type:Patient Education Patient Instructions Indication:Cerebral microvascular disease Start:07-Jul-2019 Instruction Type:Provider Instructions for Treatment How to access health informa tion online Indication:Former smoker, stopped smoking in distant past Start:20-Jun-2019 Instruction Type:Patient Education How to access health informa tion online - Detail Indication:Former smoker, stopped smoking in distant past Start:20-Jun-2019 Instruction Type:Patient Education Patient Instructions Indication:Former smoker, stopped smoking in distant past Start:20-Jun-2019 Instruction Type:Provider Instructions for Treatment How to access health informa tion online Indication:Nonsmoker Start:16-Jun-2019 Instruction Type:Patient Education How to access health informa tion online - Detail Indication:Nonsmoker Start:16-Jun-2019 Instruction Type:Patient Education Patient Instructions Indication:Nonsmoker Start:16-Jun-2019 Instruction Type:Provider Instructions for Treatment Name Dates Details How to access health informa tion online Indication:Diabetes mellitus type 2, uncontrolled (Renamed from Uncontrolled type 2 diabetes mellitus) Start:25-Sep-2019 Instruction Type:Patient Education How to access health informa tion online - Detail Indication:Diabetes mellitus type 2, uncontrolled (Renamed from Uncontrolled type 2 diabetes mellitus) Start:25-Sep-2019 Instruction Type:Patient Education Patient Instructions Indication:Diabetes mellitus type 2, uncontrolled (Renamed from Uncontrolled type 2 diabetes mellitus) Start:25-Sep-2019 Instruction Type:Provider Instructions for Treatment How to access health informa tion online Indication:BMI 33.0-33.9,adult Start:07-Jul-2019 Instruction Type:Patient Education How to access health informa tion online - Detail Indication:BMI 33.0-33.9,adult Start:07-Jul-2019 Instruction Type:Patient Education Patient Instructions Indication:Cerebral microvascular disease Start:07-Jul-2019 Instruction Type:Provider Instructions for Treatment How to access health informa tion online Indication:Former smoker, stopped smoking in distant past Start:20-Jun-2019 Instruction Type:Patient Education How to access health informa tion online - Detail Indication:Former smoker, stopped smoking in distant past Start:20-Jun-2019 Instruction Type:Patient Education Patient Instructions Indication:Former smoker, stopped smoking in distant past Start:20-Jun-2019 Instruction Type:Provider Instructions for Treatment How to access health informa tion online Indication:Nonsmoker Start:16-Jun-2019 Instruction Type:Patient Education How to access health informa tion online - Detail Indication:Nonsmoker Start:16-Jun-2019 Instruction Type:Patient Education Patient Instructions Indication:Nonsmoker Start:16-Jun-2019 Instruction Type:Provider Instructions for Treatment Name Dates Details How to access health informa tion online Indication:Diabetes mellitus type 2, uncontrolled (Renamed from Uncontrolled type 2 diabetes mellitus) Start:25-Sep-2019 Instruction Type:Patient Education How to access health informa tion online - Detail Indication:Diabetes mellitus type 2, uncontrolled (Renamed from Uncontrolled type 2 diabetes mellitus) Start:25-Sep-2019 Instruction Type:Patient Education Patient Instructions Indication:Diabetes mellitus type 2, uncontrolled (Renamed from Uncontrolled type 2 diabetes mellitus) Start:25-Sep-2019 Instruction Type:Provider Instructions for Treatment How to access health informa tion online Indication:BMI 33.0-33.9,adult Start:07-Jul-2019 Instruction Type:Patient Education How to access health informa tion online - Detail Indication:BMI 33.0-33.9,adult Start:07-Jul-2019 Instruction Type:Patient Education Patient Instructions Indication:Cerebral microvascular disease Start:07-Jul-2019 Instruction Type:Provider Instructions for Treatment How to access health informa tion online Indication:Former smoker, stopped smoking in distant past Start:20-Jun-2019 Instruction Type:Patient Education How to access health informa tion online - Detail Indication:Former smoker, stopped smoking in distant past Start:20-Jun-2019 Instruction Type:Patient Education Patient Instructions Indication:Former smoker, stopped smoking in distant past Start:20-Jun-2019 Instruction Type:Provider Instructions for Treatment How to access health informa tion online Indication:Nonsmoker Start:16-Jun-2019 Instruction Type:Patient Education How to access health informa tion online - Detail Indication:Nonsmoker Start:16-Jun-2019 Instruction Type:Patient Education Patient Instructions Indication:Nonsmoker Start:16-Jun-2019 Instruction Type:Provider Instructions for Treatment Name Dates Details How to access health informa tion online Indication:Diabetes mellitus type 2, uncontrolled (Renamed from Uncontrolled type 2 diabetes mellitus) Start:25-Sep-2019 Instruction Type:Patient Education How to access health informa tion online - Detail Indication:Diabetes mellitus type 2, uncontrolled (Renamed from Uncontrolled type 2 diabetes mellitus) Start:25-Sep-2019 Instruction Type:Patient Education Patient Instructions Indication:Diabetes mellitus type 2, uncontrolled (Renamed from Uncontrolled type 2 diabetes mellitus) Start:25-Sep-2019 Instruction Type:Provider Instructions for Treatment How to access health informa tion online Indication:BMI 33.0-33.9,adult Start:07-Jul-2019 Instruction Type:Patient Education How to access health informa tion online - Detail Indication:BMI 33.0-33.9,adult Start:07-Jul-2019 Instruction Type:Patient Education Patient Instructions Indication:Cerebral microvascular disease Start:07-Jul-2019 Instruction Type:Provider Instructions for Treatment How to access health informa tion online Indication:Former smoker, stopped smoking in distant past Start:20-Jun-2019 Instruction Type:Patient Education How to access health informa tion online - Detail Indication:Former smoker, stopped smoking in distant past Start:20-Jun-2019 Instruction Type:Patient Education Patient Instructions Indication:Former smoker, stopped smoking in distant past Start:20-Jun-2019 Instruction Type:Provider Instructions for Treatment How to access health informa tion online Indication:Nonsmoker Start:16-Jun-2019 Instruction Type:Patient Education How to access health informa tion online - Detail Indication:Nonsmoker Start:16-Jun-2019 Instruction Type:Patient Education Patient Instructions Indication:Nonsmoker Start:16-Jun-2019 Instruction Type:Provider Instructions for Treatment Name Dates Details How to access health informa tion online Indication:Diabetes mellitus type II, controlled, with no complications (Renamed from Controlled type 2 diabetes mellitus without complication) Start:10-Jan-2020 Instruction Type:Patient Education How to access health informa tion online - Detail Indication:Diabetes mellitus type II, controlled, with no complications (Renamed from Controlled type 2 diabetes mellitus without complication) Start:10-Jan-2020 Instruction Type:Patient Education Patient Instructions Indication:Diabetes mellitus type II, controlled, with no complications (Renamed from Controlled type 2 diabetes mellitus without complication) Start:10-Jan-2020 Instruction Type:Provider Instructions for Treatment How to access health informa tion online Indication:Diabetes mellitus type 2, uncontrolled (Renamed from Uncontrolled type 2 diabetes mellitus) Start:25-Sep-2019 Instruction Type:Patient Education How to access health informa tion online - Detail Indication:Diabetes mellitus type 2, uncontrolled (Renamed from Uncontrolled type 2 diabetes mellitus) Start:25-Sep-2019 Instruction Type:Patient Education Patient Instructions Indication:Diabetes mellitus type 2, uncontrolled (Renamed from Uncontrolled type 2 diabetes mellitus) Start:25-Sep-2019 Instruction Type:Provider Instructions for Treatment How to access health informa tion online Indication:BMI 33.0-33.9,adult Start:07-Jul-2019 Instruction Type:Patient Education How to access health informa tion online - Detail Indication:BMI 33.0-33.9,adult Start:07-Jul-2019 Instruction Type:Patient Education Patient Instructions Indication:Cerebral microvascular disease Start:07-Jul-2019 Instruction Type:Provider Instructions for Treatment How to access health informa tion online Indication:Former smoker, stopped smoking in distant past Start:20-Jun-2019 Instruction Type:Patient Education How to access health informa tion online - Detail Indication:Former smoker, stopped smoking in distant past Start:20-Jun-2019 Instruction Type:Patient Education Patient Instructions Indication:Former smoker, stopped smoking in distant past Start:20-Jun-2019 Instruction Type:Provider Instructions for Treatment How to access health informa tion online Indication:Nonsmoker Start:16-Jun-2019 Instruction Type:Patient Education How to access health informa tion online - Detail Indication:Nonsmoker Start:16-Jun-2019 Instruction Type:Patient Education Patient Instructions Indication:Nonsmoker Start:16-Jun-2019 Instruction Type:Provider Instructions for Treatment Name Dates Details How to access health informa tion online Indication:Diabetes mellitus type II, controlled, with no complications (Renamed from Controlled type 2 diabetes mellitus without complication) Start:10-Jan-2020 Instruction Type:Patient Education How to access health informa tion online - Detail Indication:Diabetes mellitus type II, controlled, with no complications (Renamed from Controlled type 2 diabetes mellitus without complication) Start:10-Jan-2020 Instruction Type:Patient Education Patient Instructions Indication:Diabetes mellitus type II, controlled, with no complications (Renamed from Controlled type 2 diabetes mellitus without complication) Start:10-Jan-2020 Instruction Type:Provider Instructions for Treatment How to access health informa tion online Indication:Diabetes mellitus type 2, uncontrolled (Renamed from Uncontrolled type 2 diabetes mellitus) Start:25-Sep-2019 Instruction Type:Patient Education How to access health informa tion online - Detail Indication:Diabetes mellitus type 2, uncontrolled (Renamed from Uncontrolled type 2 diabetes mellitus) Start:25-Sep-2019 Instruction Type:Patient Education Patient Instructions Indication:Diabetes mellitus type 2, uncontrolled (Renamed from Uncontrolled type 2 diabetes mellitus) Start:25-Sep-2019 Instruction Type:Provider Instructions for Treatment How to access health informa tion online Indication:BMI 33.0-33.9,adult Start:07-Jul-2019 Instruction Type:Patient Education How to access health informa tion online - Detail Indication:BMI 33.0-33.9,adult Start:07-Jul-2019 Instruction Type:Patient Education Patient Instructions Indication:Cerebral microvascular disease Start:07-Jul-2019 Instruction Type:Provider Instructions for Treatment How to access health informa tion online Indication:Former smoker, stopped smoking in distant past Start:20-Jun-2019 Instruction Type:Patient Education How to access health informa tion online - Detail Indication:Former smoker, stopped smoking in distant past Start:20-Jun-2019 Instruction Type:Patient Education Patient Instructions Indication:Former smoker, stopped smoking in distant past Start:20-Jun-2019 Instruction Type:Provider Instructions for Treatment How to access health informa tion online Indication:Nonsmoker Start:16-Jun-2019 Instruction Type:Patient Education How to access health informa tion online - Detail Indication:Nonsmoker Start:16-Jun-2019 Instruction Type:Patient Education Patient Instructions Indication:Nonsmoker Start:16-Jun-2019 Instruction Type:Provider Instructions for Treatment Name Dates Details How to access health informa tion online Indication:Diabetes mellitus type II, controlled, with no complications (Renamed from Controlled type 2 diabetes mellitus without complication) Start:10-Jan-2020 Instruction Type:Patient Education How to access health informa tion online - Detail Indication:Diabetes mellitus type II, controlled, with no complications (Renamed from Controlled type 2 diabetes mellitus without complication) Start:10-Jan-2020 Instruction Type:Patient Education Patient Instructions Indication:Diabetes mellitus type II, controlled, with no complications (Renamed from Controlled type 2 diabetes mellitus without complication) Start:10-Jan-2020 Instruction Type:Provider Instructions for Treatment How to access health informa tion online Indication:Diabetes mellitus type 2, uncontrolled (Renamed from Uncontrolled type 2 diabetes mellitus) Start:25-Sep-2019 Instruction Type:Patient Education How to access health informa tion online - Detail Indication:Diabetes mellitus type 2, uncontrolled (Renamed from Uncontrolled type 2 diabetes mellitus) Start:25-Sep-2019 Instruction Type:Patient Education Patient Instructions Indication:Diabetes mellitus type 2, uncontrolled (Renamed from Uncontrolled type 2 diabetes mellitus) Start:25-Sep-2019 Instruction Type:Provider Instructions for Treatment How to access health informa tion online Indication:BMI 33.0-33.9,adult Start:07-Jul-2019 Instruction Type:Patient Education How to access health informa tion online - Detail Indication:BMI 33.0-33.9,adult Start:07-Jul-2019 Instruction Type:Patient Education Patient Instructions Indication:Cerebral microvascular disease Start:07-Jul-2019 Instruction Type:Provider Instructions for Treatment How to access health informa tion online Indication:Former smoker, stopped smoking in distant past Start:20-Jun-2019 Instruction Type:Patient Education How to access health informa tion online - Detail Indication:Former smoker, stopped smoking in distant past Start:20-Jun-2019 Instruction Type:Patient Education Patient Instructions Indication:Former smoker, stopped smoking in distant past Start:20-Jun-2019 Instruction Type:Provider Instructions for Treatment How to access health informa tion online Indication:Nonsmoker Start:16-Jun-2019 Instruction Type:Patient Education How to access health informa tion online - Detail Indication:Nonsmoker Start:16-Jun-2019 Instruction Type:Patient Education Patient Instructions Indication:Nonsmoker Start:16-Jun-2019 Instruction Type:Provider Instructions for Treatment Name Dates Details Patient Instructions Indication:BMI 34.0-34.9,adult Start:15-Apr-2020 Instruction Type:Provider Instructions for Treatment How to Access Health Informa tion Online using Patient Portal and [employer] Apps Indication:BMI 34.0-34.9,adult Start:15-Apr-2020 Instruction Type:Patient Education How to access health informa tion online Indication:Diabetes mellitus type II, controlled, with no complications (Renamed from Controlled type 2 diabetes mellitus without complication) Start:10-Jan-2020 Instruction Type:Patient Education How to access health informa tion online - Detail Indication:Diabetes mellitus type II, controlled, with no complications (Renamed from Controlled type 2 diabetes mellitus without complication) Start:10-Jan-2020 Instruction Type:Patient Education Patient Instructions Indication:Diabetes mellitus type II, controlled, with no complications (Renamed from Controlled type 2 diabetes mellitus without complication) Start:10-Jan-2020 Instruction Type:Provider Instructions for Treatment How to access health informa tion online Indication:Diabetes mellitus type 2, uncontrolled (Renamed from Uncontrolled type 2 diabetes mellitus) Start:25-Sep-2019 Instruction Type:Patient Education How to access health informa tion online - Detail Indication:Diabetes mellitus type 2, uncontrolled (Renamed from Uncontrolled type 2 diabetes mellitus) Start:25-Sep-2019 Instruction Type:Patient Education Patient Instructions Indication:Diabetes mellitus type 2, uncontrolled (Renamed from Uncontrolled type 2 diabetes mellitus) Start:25-Sep-2019 Instruction Type:Provider Instructions for Treatment How to access health informa tion online Indication:BMI 33.0-33.9,adult Start:07-Jul-2019 Instruction Type:Patient Education How to access health informa tion online - Detail Indication:BMI 33.0-33.9,adult Start:07-Jul-2019 Instruction Type:Patient Education Patient Instructions Indication:Cerebral microvascular disease Start:07-Jul-2019 Instruction Type:Provider Instructions for Treatment How to access health informa tion online Indication:Former smoker, stopped smoking in distant past Start:20-Jun-2019 Instruction Type:Patient Education How to access health informa tion online - Detail Indication:Former smoker, stopped smoking in distant past Start:20-Jun-2019 Instruction Type:Patient Education Patient Instructions Indication:Former smoker, stopped smoking in distant past Start:20-Jun-2019 Instruction Type:Provider Instructions for Treatment How to access health informa tion online Indication:Nonsmoker Start:16-Jun-2019 Instruction Type:Patient Education How to access health informa tion online - Detail Indication:Nonsmoker Start:16-Jun-2019 Instruction Type:Patient Education Patient Instructions Indication:Nonsmoker Start:16-Jun-2019 Instruction Type:Provider Instructions for Treatment Name Dates Details Patient Instructions Indication:BMI 34.0-34.9,adult Start:15-Apr-2020 Instruction Type:Provider Instructions for Treatment How to Access Health Informa tion Online using Patient Portal and [employer] Apps Indication:BMI 34.0-34.9,adult Start:15-Apr-2020 Instruction Type:Patient Education How to access health informa tion online Indication:Diabetes mellitus type II, controlled, with no complications (Renamed from Controlled type 2 diabetes mellitus without complication) Start:10-Jan-2020 Instruction Type:Patient Education How to access health informa tion online - Detail Indication:Diabetes mellitus type II, controlled, with no complications (Renamed from Controlled type 2 diabetes mellitus without complication) Start:10-Jan-2020 Instruction Type:Patient Education Patient Instructions Indication:Diabetes mellitus type II, controlled, with no complications (Renamed from Controlled type 2 diabetes mellitus without complication) Start:10-Jan-2020 Instruction Type:Provider Instructions for Treatment How to access health informa tion online Indication:Diabetes mellitus type 2, uncontrolled (Renamed from Uncontrolled type 2 diabetes mellitus) Start:25-Sep-2019 Instruction Type:Patient Education How to access health informa tion online - Detail Indication:Diabetes mellitus type 2, uncontrolled (Renamed from Uncontrolled type 2 diabetes mellitus) Start:25-Sep-2019 Instruction Type:Patient Education Patient Instructions Indication:Diabetes mellitus type 2, uncontrolled (Renamed from Uncontrolled type 2 diabetes mellitus) Start:25-Sep-2019 Instruction Type:Provider Instructions for Treatment How to access health informa tion online Indication:BMI 33.0-33.9,adult Start:07-Jul-2019 Instruction Type:Patient Education How to access health informa tion online - Detail Indication:BMI 33.0-33.9,adult Start:07-Jul-2019 Instruction Type:Patient Education Patient Instructions Indication:Cerebral microvascular disease Start:07-Jul-2019 Instruction Type:Provider Instructions for Treatment How to access health informa tion online Indication:Former smoker, stopped smoking in distant past Start:20-Jun-2019 Instruction Type:Patient Education How to access health informa tion online - Detail Indication:Former smoker, stopped smoking in distant past Start:20-Jun-2019 Instruction Type:Patient Education Patient Instructions Indication:Former smoker, stopped smoking in distant past Start:20-Jun-2019 Instruction Type:Provider Instructions for Treatment How to access health informa tion online Indication:Nonsmoker Start:16-Jun-2019 Instruction Type:Patient Education How to access health informa tion online - Detail Indication:Nonsmoker Start:16-Jun-2019 Instruction Type:Patient Education Patient Instructions Indication:Nonsmoker Start:16-Jun-2019 Instruction Type:Provider Instructions for Treatment Name Dates Details Patient Instructions Indication:BMI 34.0-34.9,adult Start:15-Apr-2020 Instruction Type:Provider Instructions for Treatment How to Access Health Informa tion Online using Patient Portal and [employer] Apps Indication:BMI 34.0-34.9,adult Start:15-Apr-2020 Instruction Type:Patient Education How to access health informa tion online Indication:Diabetes mellitus type II, controlled, with no complications (Renamed from Controlled type 2 diabetes mellitus without complication) Start:10-Jan-2020 Instruction Type:Patient Education How to access health informa tion online - Detail Indication:Diabetes mellitus type II, controlled, with no complications (Renamed from Controlled type 2 diabetes mellitus without complication) Start:10-Jan-2020 Instruction Type:Patient Education Patient Instructions Indication:Diabetes mellitus type II, controlled, with no complications (Renamed from Controlled type 2 diabetes mellitus without complication) Start:10-Jan-2020 Instruction Type:Provider Instructions for Treatment How to access health informa tion online Indication:Diabetes mellitus type 2, uncontrolled (Renamed from Uncontrolled type 2 diabetes mellitus) Start:25-Sep-2019 Instruction Type:Patient Education How to access health informa tion online - Detail Indication:Diabetes mellitus type 2, uncontrolled (Renamed from Uncontrolled type 2 diabetes mellitus) Start:25-Sep-2019 Instruction Type:Patient Education Patient Instructions Indication:Diabetes mellitus type 2, uncontrolled (Renamed from Uncontrolled type 2 diabetes mellitus) Start:25-Sep-2019 Instruction Type:Provider Instructions for Treatment How to access health informa tion online Indication:BMI 33.0-33.9,adult Start:07-Jul-2019 Instruction Type:Patient Education How to access health informa tion online - Detail Indication:BMI 33.0-33.9,adult Start:07-Jul-2019 Instruction Type:Patient Education Patient Instructions Indication:Cerebral microvascular disease Start:07-Jul-2019 Instruction Type:Provider Instructions for Treatment How to access health informa tion online Indication:Former smoker, stopped smoking in distant past Start:20-Jun-2019 Instruction Type:Patient Education How to access health informa tion online - Detail Indication:Former smoker, stopped smoking in distant past Start:20-Jun-2019 Instruction Type:Patient Education Patient Instructions Indication:Former smoker, stopped smoking in distant past Start:20-Jun-2019 Instruction Type:Provider Instructions for Treatment How to access health informa tion online Indication:Nonsmoker Start:16-Jun-2019 Instruction Type:Patient Education How to access health informa tion online - Detail Indication:Nonsmoker Start:16-Jun-2019 Instruction Type:Patient Education Patient Instructions Indication:Nonsmoker Start:16-Jun-2019 Instruction Type:Provider Instructions for Treatment Advance Directives Name Dates Details Immunization Registry [place] - Effective on 05/24/2020. Expiration date unspecified Effective:24-May-2020 Name Dates Details Immunization Registry [place] - Effective on 05/24/2020. Expiration date unspecified Effective:24-May-2020 Name Dates Details Immunization Registry [place] - Effective on 05/24/2020. Expiration date unspecified Effective:24-May-2020 Name Dates Details Immunization Registry [place] - Effective on 05/24/2020. Expiration date unspecified Effective:24-May-2020 Name Dates Details Immunization Registry [place] - Effective on 05/24/2020. Expiration date unspecified Effective:24-May-2020 Name Dates Details Immunization Registry [place] - Effective on 05/24/2020. Expiration date unspecified Effective:24-May-2020 Name Dates Details Immunization Registry [place] - Effective on 05/24/2020. Expiration date unspecified Effective:24-May-2020 Name Dates Details Immunization Registry [place] - Effective on 05/24/2020. Expiration date unspecified Effective:24-May-2020 Name Dates Details Immunization Registry [place] - Effective on 05/24/2020. Expiration date unspecified Effective:24-May-2020 Name Dates Details Immunization Registry [place] - Effective on 05/24/2020. Expiration date unspecified Effective:24-May-2020 Name Dates Details Immunization Registry [place] - Effective on 05/24/2020. Expiration date unspecified Effective:24-May-2020 Name Dates Details Immunization Registry [place] - Effective on 05/24/2020. Expiration date unspecified Effective:24-May-2020 Name Dates Details Immunization Registry [place] - Effective on 05/24/2020. Expiration date unspecified Effective:24-May-2020 Name Dates Details Immunization Registry [place] - Effective on 05/24/2020. Expiration date unspecified Effective:24-May-2020 Name Dates Details Immunization Registry [place] - Effective on 05/24/2020. Expiration date unspecified Effective:24-May-2020 Name Dates Details Immunization Registry [place] - Effective on 05/24/2020. Expiration date unspecified Effective:24-May-2020 Name Dates Details Immunization Registry [place] - Effective on 05/24/2020. Expiration date unspecified Effective:24-May-2020 Name Dates Details Immunization Registry [place] - Effective on 05/24/2020. Expiration date unspecified Effective:24-May-2020 Name Dates Details Immunization Registry [place] - Effective on 05/24/2020. Expiration date unspecified Effective:24-May-2020 Name Dates Details Immunization Registry [place] - Effective on 05/24/2020. Expiration date unspecified Effective:24-May-2020 Name Dates Details Immunization Registry [place] - Effective on 05/24/2020. Expiration date unspecified Effective:24-May-2020 Name Dates Details Immunization Registry [place] - Effective on 05/24/2020. Expiration date unspecified Effective:24-May-2020 Name Dates Details Immunization Registry [place] - Effective on 05/24/2020. Expiration date unspecified Effective:24-May-2020 Name Dates Details Immunization Registry [place] - Effective on 05/24/2020. Expiration date unspecified Effective:24-May-2020 Name Dates Details Immunization Registry [place] - Effective on 05/24/2020. Expiration date unspecified Effective:24-May-2020 Name Dates Details Immunization Registry [place] - Effective on 05/24/2020. Expiration date unspecified Effective:24-May-2020 Name Dates Details Immunization Registry [place] - Effective on 05/24/2020. Expiration date unspecified Effective:24-May-2020 Summary Purpose Additional Source Comments Source Comments (unrecognize d section and content) In the event this informatio n is protected by the Federal Confidentiality of Alcohol and Drug Abuse Patient Records regulations: The Federal rules restrict any use of the information to criminally investigate or prosecute any alcohol or drug abuse patient.[facility] Reason for Visit (unrecogniz ed section and content) Care Teams (unrecognized sec tion and content) (unrecognized sect ion and content) No Status Records FoundNo Status Records Found INFORMATION SOURCE (unrecogn ized section and content) DATE CREATED AUTHOR AUTHOR'S ORGANIZ ATION 04/02/2022 [facility] FOR RECORDS PERTAINING TO PATIENTS WHO ARE OR HAVE BEEN ENROLLED IN A CHEMICAL DEPENDENCY/SUBSTANCEABUSE PROGRAM, SOME INFORMATION MAY BE OMITTED. This clinical summary was aggregated from multiple sources. Caution should be exercised in using it in the provision of clinical care. This summary normalizes information from multiple sources, and as a consequence, information in this document may materially change the coding, format and clinical context of patient data. In addition, data may be omitted in some cases. CLINICAL DECISIONS SHOULD BE BASED ON THE PRIMARY CLINICAL RECORDS. [facility] [employer] [facility]. provides no warranty or guarantee of the accuracy or completeness of information in this document.
[2023-04-10 23:28] LABS: Absolute Lymphocyte Count 0.89 X10^3/uL (0.83-4.51); Absolute Neutrophil Count 6.1 X10^3/uL (2.0-7.7); Basophil# 0.03 X10^3/uL; Basophil% 0.4 % (0-1); Eosinophil# 0.11 X10^3/uL; Eosinophils% 1.4 % (0-5); Hemoglobin 13.6 g/dL (13.0-16.5); Lymphocyte # 0.89 X10^3/ul (0.83-4.51); Lymphocyte % 11.3 % (19-41); Mean Corpuscular Hgb 29.4 pg (27.0-32.0); Mean Corpuscular Volume 86.4 fL (80-94); Mean Platelet Vol. 12.1 fl (6.2-12.0); Monocyte# 0.75 X10^3/uL; Monocyte% 9.5 % (0-10); NRBC Flagged by Analyzer 0 % (0-5); Neutrophil # 6.07 X10^3/uL (2.7-7.7); Neutrophil % 77.1 % (47-70); Platelet Count 120 K/mm3 (150-450); RBC Distribution Width CV 12.4 % (11.6-14.6); RBC Distribution Width SD 39.3 fl (35.1-43.9); Red Blood Count 4.63 M/mm3 (4.6-6.2); White Blood Count 7.9 K/mm3 (4.4-11.0)
--- NOTE | 2023-04-10 23:50 | EX.ED.DYSGE1 ---
HPI History of Present Illness Chief Complaint: Anxiety Detail of Chief Complaint: Anxiety Informant: patient and spouse/S.O. Onset/Context/Timing Onset: Today Context: Sudden Onset Timing: Intermittent (Duration 15 minutes) Quality: [place] anxious and was pacing in mobile home. Location: Residence Current Severity: Gone Worsened by: Nothing per patient Relieved by: Resolved with time Associated Symptoms Associated Symptoms: Restlessness Narrative Narrative: Patient is 72-year-old male with history of anxiety. Patient states he wakes up in the middle the night around 1:00. He attempts not to wake up his . Today this occurred during the day. He felt anxious and was pacing in the couples residence, mobile home. This lasted 15 minutes. He denies fever, chills night sweats. He denies weight gain or weight loss. He denies headache, visual, ocular auditory symptoms. He denies trouble with speech or swallowing. He denies chest pain, shortness of breath, dyspnea on exertion. He denies abdominal pain, nausea, vomiting or diarrhea. He denies dysuria, frequency, urgency or hematuria. He does report nocturia. He denies history of enlarged prostate. He denies skin lesions. He states his right lower extremity is normally swollen and has been swollen for some time. There is no history of VTE. Prior similar symptoms: No (Has not occurred during the day in the past.) Recent Illness/Hospitalization: No PFSH PFSH Allergy/AdvReac Type Severity Reaction Status Date / Time No Known Allergies Allergy Verified 04/10/23 22:52 Social History (Updated 04/10/23 @ 23:[address] Karel Quarles MD) household members: spouse Smoking Status: Former smoker substance use type: does not use ROS ROS ED Constitutional Constitutional ED: Denies chills, fever(s), subjective, sweats or weight loss Eyes Eyes: Denies blurry vision, change in vision or diplopia ENT ENT ED: Denies ear pain, rhinorrhea or sore throat Cardiovascular Cardiovascular: Denies chest pain or palpitations Respiratory/Chest Respiratory/Chest: Denies cough, dyspnea or dyspnea on exertion Gastrointestinal Gastrointestinal: Denies abdominal pain, constipation, diarrhea or melena Genitourinary Genitourinary ED: Denies dysuria, hematuria or urinary frequency Musculoskeletal Musculoskeletal: Denies arthralgias, back pain or myalgias Integumentary Denies rash Neurologic Neurologic: Denies headache(s), paresthesias or weakness Psychiatric Psychiatric: Denies anxiety or depression Hematologic/Lymphatic Hematologic/Lymphatic: Reports systems reviewed and no addt'l complaints, except as documented EXAM Physical Exam Const Vital Signs: 04/10/23 22:51 Temperature 98.2 F Temperature Source Temporal Pulse Rate 91 Respiratory Rate 17 Blood Pressure 192/94 H Blood Pressure Mean 126 Pulse Ox 99 Oxygen Delivery Method Room Air Positive well nourished, well developed and obese General Appearance ED: well developed, NAD and pallor; Negative for cyanotic or diaphoretic Nutritional Appearance: obese HEENT Reports moist mucous membranes HEENT Narrative: Head is atraumatic and normocephalic. Ears are normal. Nares are patent. Posterior pharynx is normal. There is no deviation with protrusion. Uvula is midline. Eyes PERRL and EOMs intact bilaterally General Eye ED: Negative for pale conjunctiva or scleral icterus Neck no lymphadenopathy, supple and no JVD Chest Wall inspection of chest normal and palpation of chest normal Resp normal respiratory effort and clear to auscultation bilaterally Cardio regular rate, regular rhythm, S1 normal heart sound, S2 normal heart sound and no murmurs GI normal to inspection, nondistended, normoactive bowel sounds, non-tender, non-distended and hepatosplenomegaly Auscultation: normoactive bowel sounds Back/Spine no CVA tenderness Extremity Extremity Narrative: Mild pitting edema both lower extremities right slightly greater than left. There is no discoloration. There is no ligament distention. There is no palpable cords or tenderness on the distribution deep venous system. General Extremety ED: Yes edema General Extremity: edema Neuro oriented x3, CN's II-XII intact bilaterally and no sensory deficits noted Sensorium / Orientation: alert Psych mental status grossly normal Skin no rashes or lesions noted, no wounds and skin turgor normal General Skin Exam: pallor; Negative for jaundice MDM MDM MDM Narrative Medical decision making narrative: Patient symptoms have resolved. Since he appears pale will get a CBC to assess for anemia. Will obtain UA to assess for evidence of urinary tract infection. Basic metabolic panel determine if there is any evidence of hypocalcemia or hypokalemia. Lab Data Attestation: I reviewed the patient's lab results. Labs: Laboratory Results - last 24 hr 04/10/23 04/11/23 23:18 00:10 WBC 7.9 RBC 4.63 Hgb 13.6 Hct 40.0 MCV 86.4 MCH 29.4 MCHC 34.0 RDW Std Deviation 39.3 RDW Coeff of James 12.4 Plt Count 120 L MPV 12.1 H Immature Gran % (Auto) 0.300 Neut % (Auto) 77.1 H Lymph % (Auto) 11.3 L [place] % (Auto) 9.5 Eos % (Auto) 1.4 Baso % (Auto) 0.4 Absolute Neuts (auto) 6.1 Absolute Lymphs (auto) 0.89 Nucleated RBC % 0 Sodium 135 L Potassium 3.9 Chloride 104 Carbon Dioxide 27.0 Anion Gap 4 L BUN 15 Creatinine 0.94 Estim Creat Clear Calc 83.34 Est GFR (MDRD) Af Amer 101 Est GFR (MDRD) Non-Af 84 BUN/Creatinine Ratio 16.0 Glucose 251 H Calcium 9.1 Urine Color Yellow Urine Clarity Sl. Cloudy Urine pH 6.5 Ur Specific [place] 1.030 Urine Protein 30 H Urine Glucose (UA) 100 H Urine Ketones 5 H Urine Occult Blood Negative Urine Nitrite Negative Urine Bilirubin Negative Urine Urobilinogen Normal Ur Leukocyte Esterase Negative Urine RBC 0 SEEN Urine WBC 0 SEEN Ur Squamous Epith Cells 0 SEEN Urine Bacteria 0 SEEN Urine Mucus 0 SEEN Patient's frequent urination is probably due to new onset diabetes. Treatment and Re-Evaluation :: Prescription for metformin. Follow-up with doctor for diabetic education. Discharge Plan Triage Chief Complaint: Anxiety ED Provider: Karel Quarles Dx/Rx/DC Orders Clinical Impression: Ketosis, Anxiety attack, Type 2 diabetes mellitus with hyperglycemia, without long-term current use of insulin, Elevated blood pressure reading Instructions: ED Panic Attack Primary Care Provider: Maria Luisa Pizano Referrals: Maria Luisa Pizano, [employer] [Primary Care Provider] - 1 Week Activity Restrictions/Additional Instructions: 1. Recommend follow-up with your doctor because of elevated blood sugar 2. You also have elevated blood pressure and this should be monitored more closely. 3. Encourage compliance with diet. Disposition Disposition: Home, Self Care
[2023-04-11 00:01] LABS: Anion Gap 4 (5-15); BUN 15 mg/dL (7-18); Calcium,Total 9.1 mg/dL (8.5-10.1); Chloride 104 mmol/L (98-107); Creatinine, Serum 0.94 mg/dL (0.70-1.30); EST Glomerular Filtration Rate 84 mL/min (>60); Est Glom Filt Rate - Afr Amer 101 mL/min (>60); Estimated Creatinine Clearance 83.34 ml/min; Glucose 251 mg/dL (74-106); Potassium 3.9 mmol/L (3.5-5.1); Sodium Level 135 mmol/L (136-145)
[2023-04-11 00:17] LABS: Bacteria 0 SEEN /hpf (None Seen); Mucous, Urine 0 SEEN /hpf (<or=2+); Red Blood Cells-Urine 0 SEEN /hpf (0-5); Squamous Epithelial Cells - UA 0 SEEN /hpf (0-5); White Blood Cells 0 SEEN /hpf (0-5)
[2023-04-11 00:40] LABS: Color, Urine Yellow (Yellow); Glucose, Dipstick 100 mg/dl (Normal); Ketone-Dipstick 5 mg/dl (Negative); Leukocyte Esterase-Dipstick Negative /ul (Negative); Nitrite-Dipstick Negative (Negative); Occult Blood-Urine Negative /ul (Negative); Protein-Dipstick 30 mg/dl (Negative); Urine Bilirubin Dipstick Negative (Negative); Urine Clarity Sl. Cloudy (Clear); Urine Urobilinogen Normal (Normal); Urine pH 6.5 (5.0 - 8.0)
[2023-04-11 01:56] VITALS: BP 187/72; PULSE 88; RESP 20; O2SAT 99
== END 2023-04-11 01:57 | disposition home or self-care (01) ==
PROVIDERS: Emergency Provider Emergency Medicine; PCP Nurse Practitioner Family; Visit Provider Emergency Medicine
DX: E88.89 Other specified metabolic disorders (principal); E11.65 Type 2 diabetes mellitus with hyperglycemia; F41.9 Anxiety disorder, unspecified; R03.0 Elevated blood-pressure reading, without diagnosis of hypertension; R60.0 Localized edema; E66.9 Obesity, unspecified; Z87.891 Personal history of nicotine dependence
CPT/HCPCS: 80048; 81001; 85025; 99284; A4216

== ENCOUNTER → 2023-07-14 | Outpatient (CLI) | payer MEDICARE, SELFPAY | END | disposition home or self-care (01) | LOC: LABSPEC 12:07 | PROVIDERS: PCP Nurse Practitioner Family; Referring Provider Nurse Practitioner Family; Visit Provider Nurse Practitioner Family | DX: E87.5 Hyperkalemia (principal) | CPT/HCPCS: 84132 ==

== ENCOUNTER 2025-01-13 10:46 | Emergency (ER) | payer MEDICARE, SELFPAY ==
[2025-01-13] VITALS (8 sets, daily range): BP systolic 130–152; BP diastolic 60–72; PULSE 96–106; RESP 16–32; TEMP 36.8; O2SAT 98–100; BMI 36.0
--- NOTE | 2025-01-13 10:59 | EKG12_ITS ---
Test Reason : SOB
--- NOTE | 2025-01-13 11:02 | ED.VIS.DYS ---
HPI History of Present Illness Chief Complaint: Shortness of Breath Informant: patient Onset/Context/Timing Onset: Today and Hours Context: gradual Timing: Continuous Current Severity: Mild Maximum Severity: Mild Worsened by: Nothing Relieved by: Nothing Associated Symptoms cough; Negative for fever, sore throat, clear sputum, white sputum, yellow sputum or green sputum Chest Pain: Positive for None Narrative Narrative: 74-year-old male past medical history of diabetes. Denies any heart disease. Denies COPD but he was a smoker for 25 years. No home O2. He was feeling fine last few days today developed a cough and some laryngitis. Says the cough is nonproductive. He said he feels short of breath. Nonproductive cough. No chest pain. No hemoptysis. Denies any history of DVT or PE. No leg pain or swelling. No recent travel, surgery or immobilization. PE Risk Factors: Negative for Cancer, OCP + Smoking + > 35, Prior DVT or PE, Recent immobilization, Recent surgery or Recent travel Prior similar symptoms: Yes Recent Illness/Hospitalization: No PFSH PFSH Medical History Diabetes Home Medications ?Medication ?Instructions ?Recorded ?Last Taken ?Type azithromycin 250 mg tablet See Rx Instructions PO .COMPLEX #6 01/13/25 Unknown Rx (Zithromax) tabs Allergy/AdvReac Type Severity Reaction Status Date / Time No Known Allergies Allergy Verified 01/13/25 12:15 Social History household members: spouse Smoking Status: Former smoker substance use type: does not use ROS ROS ED ROS Narrative Shortness of breath and nonproductive cough. Constitutional Constitutional ED: Denies chills or fever(s) Eyes Eyes: Denies blurry vision ENT ENT ED: Denies ear pain Cardiovascular Cardiovascular: Denies chest pain Respiratory/Chest Respiratory/Chest: Reports cough and dyspnea; Denies sputum Gastrointestinal Gastrointestinal: Denies abdominal pain, diarrhea, nausea or vomiting Genitourinary Genitourinary ED: Denies dysuria or hematuria Musculoskeletal Musculoskeletal: Denies arthralgias Integumentary Denies abscess Neurologic Neurologic: Denies headache(s) Psychiatric Psychiatric: Denies anxiety or depression Endocrine Endocrinology: Denies cold intolerance, heat intolerance, polydipsia, polyphagia or polyuria Hematologic/Lymphatic Hematologic/Lymphatic: Denies easy bleeding, easy bruising or lymphadenopathy Allergic/Immunologic Allergic/Immunologic ED: Denies mouth swelling, tongue swelling or urticaria EXAM Physical Exam Narrative Exam Narrative: 74-year-old male sitting upright in bed. No acute distress. Vital signs stable. Afebrile. Pulse ox 100% on room air no hypoxia. H EENT exam pupils round react to light. Moist mutes membranes. Neck nontender no lymphadenopathy. Lungs coarse breath sounds bilaterally. No rales or rhonchi. Equal symmetrical. Heart regular rhythm rate about 100 no murmur. Chest wall and ribs nontender. No ecchymosis or bruising. No crepitance or subcu air. Abdomen soft nontender. Moving all 4 extremities. Nontender no edema. Neurologically he is awake alert. Answering questions following commands. Back nontender. Skin unremarkable. Const Vital Signs: 01/13/25 10:52 01/13/25 10:54 01/13/25 10:57 Temperature 98.2 F 98.2 F Temperature Source Oral Oral Pulse Rate 100 100 Respiratory Rate 28 H 28 H Respiratory Effort Short of Breath Labored Respiratory Depth Deep Respiratory Pattern Tachypnea Blood Pressure 132/70 H 132/70 H Blood Pressure Mean 90 90 Pulse Ox 100 100 Oxygen Delivery Method Room Air Room Air Room Air 01/13/25 11:14 01/13/25 12:06 01/13/25 12:45 Temperature Temperature Source Pulse Rate 96 106 H 101 H Respiratory Rate 16 19 H 26 H Respiratory Effort Respiratory Depth Respiratory Pattern Normal Blood Pressure 141/60 H 130/71 H Blood Pressure Mean 87 87 Pulse Ox 99 Oxygen Delivery Method Room Air MDM MDM MDM Narrative Medical decision making narrative: 74-year-old male with nonproductive cough with shortness of breath. Denies any history of COPD although is a smoker over 25 years. He is not on home O2. I suspect this is secondary to a viral URI. Rule out pneumonia. Rule out COVID flu. To be treated with aerosols and Solu-Medrol. Chest x-ray EKG and cardiac workup will be performed but I do not think this is an acute cardiac etiology. Repeat exam patient is doing better at 12:20 PM. The aerosol helped him. We have gone over the test that returned so far. We are waiting for the rest. I believe this be a viral URI. History & Record Review Discussion w/independent historian: Patient Additional record(s) reviewed:: Prior ED visit and Prior labs Lab Data Attestation: I reviewed the patient's lab results. Lab results narrative: CBC shows white count 6. H&H 13 and 38. Platelets 134. Chest x-ray chronic changes. Tracheal bronchitis also. COVID, flu RSV is negative. Chemistry shows sodium 132. Gap 15. BUN and creatinine of 14 and 0.8. Glucose 164. Troponin 36. 2-hour troponin is 33. Labs: Laboratory Results - last 24 hr 01/13/25 01/13/25 11:19 13:10 WBC 6.9 RBC 4.52 L Hgb 13.5 Hct 38.4 L MCV 85.0 MCH 29.9 MCHC 35.2 RDW Std Deviation 40.0 RDW Coeff of James 13.0 Plt Count 134 L MPV 11.0 Immature Gran % (Auto) 0.400 Neut % (Auto) 76.3 H Lymph % (Auto) 10.9 L [place] % (Auto) 10.8 H Eos % (Auto) 1.0 Baso % (Auto) 0.6 Absolute Neuts (auto) 5.2 Absolute Lymphs (auto) 0.75 L Nucleated RBC % 0 Sodium 132 L Potassium 4.1 Chloride 98 Carbon Dioxide 18.7 L Anion Gap 15 BUN 14 Creatinine 0.85 Estim Creat Clear Calc 89.10 Est GFR (MDRD) Non-Af 90 BUN/Creatinine Ratio 15.8 Glucose 164 H Calcium 9.1 Troponin T High Sens 36 H Troponin T Hi Sens 2 Hr 33 H Radiography Chest X-Ray - ED: 2 View, Read by ED Physician, Read by Radiologist, Normal, Heart, Lungs, Mediastinum, Bony Structures, No Acute Disease (Narrowing of the proximal trachea consistent with tracheobronchitis.) and Chronic Changes Diagnostic Testing: Clinical Impression(s) from Imaging Studies Chest X-Ray 01/13/25 11:30 IMPRESSION: Mild cardiac enlargement. Mild subglottic narrowing of the trachea. Correlate with upper airway symptoms. Consider tracheobronchitis. Reading Location: [facility] Chest x-ray, 2 views AP and lateral, interpreted by by myself and radiologist. Shows normal cardiac silhouette and lung fisher. No pneumonia. No effusions. Narrowing of the proximal trachea consistent with tracheobronchitis. Rhythm Strip Rhythm Strip: Sinus Rhythm Rate: 99 Ectopy: None EKG Initial EKG: Attestation: I personally reviewed and interpreted this EKG as follows: Interpretation: Sinus Rhythm and No Acute Injury Pattern Comments: Normal sinus rhythm rate of 99 no acute signs of an MN. No ST elevation or depression. Discharge Plan Triage Chief Complaint: Shortness of Breath ED Provider: Urbano Walter Dx/Rx/DC Orders Clinical Impression: Viral syndrome, Bronchitis, Laryngitis, History of diabetes mellitus Instructions: ED URI, Viral, No Abx (Adult) Prescriptions: New azithromycin [Zithromax] 250 mg tablet See Rx Instructions .ROUTE .COMPLEX Qty: 6 0RF Rx Instructions: For 250 mg dose pack: take 500 mg today (day 1), then 250 mg for 4 days (days 2-5) Primary Care Provider: Maria Luisa Pizano Referrals: Maria Luisa Pizano, [employer]C [Primary Care Provider, Internal Medicine] - 3-5 Days if not improving Activity Restrictions/Additional Instructions: Plenty of fluids and rest. Follow-up your primary care provider if not improving. Clinically this is a virus. Would not be treated with antibiotics. Print Language: Slovenian Disposition Disposition: Home, Self Care
[2025-01-13] MEDS: Albuterol 2.5 MG/3 ML VIAL.NEB. INHALATION (11:10)
--- NOTE | 2025-01-13 11:30 | RAD_ITS ---
PROCEDURE: RAD/Chest PA and Lateral
[2025-01-13 11:31] LABS: Hematocrit 38.4 % (40-54); Hemoglobin 13.5 g/dL (13.0-16.5); Immature Granulocytes Count 0.030 X10^3/uL (0.0-0.0); Mean Corp Hgb Conc 35.2 g/dL (32-36); Mean Corpuscular Volume 85.0 fL (80-94); Mean Platelet Vol. 11.0 fl (6.2-12.0); NRBC Flagged by Analyzer 0 % (0-5); Platelet Count 134 K/mm3 (150-450); RBC Distribution Width CV 13.0 % (11.6-14.6); RBC Distribution Width SD 40.0 fl (35.1-43.9); Red Blood Count 4.52 M/mm3 (4.6-6.2); White Blood Count 6.9 K/mm3 (4.4-11.0)
[2025-01-13 12:21] LABS: Troponin T High Sensitivity 36 ng/L (<=22)
[2025-01-13 12:23] LABS: Anion Gap 15 (5-15); BUN 14 mg/dL (4-19); BUN/Creat Ratio 15.8 RATIO (10-20); Calcium,Total 9.1 mg/dL (7.6-11.0); Carbon Dioxide 18.7 mmol/L (21.0-32.0); Chloride 98 mmol/L (98-108); Estimated Creatinine Clearance 89.10 ml/min (50-250); Glucose 164 mg/dL (70-99); Potassium 4.1 mmol/L (3.3-5.1)
[2025-01-13 13:38] LABS: Troponin T High Sens 2 HR 33 ng/L (<=22)
== END 2025-01-13 14:17 | disposition home or self-care (01) ==
PROVIDERS: Emergency Provider Emergency Medicine; PCP Nurse Practitioner Family; Visit Provider Emergency Medicine
DX: J40 Bronchitis, not specified as acute or chronic (principal); J04.0 Acute laryngitis; B34.9 Viral infection, unspecified; Z87.891 Personal history of nicotine dependence; Z86.39 Personal history of other endocrine, nutritional and metabolic disease
CPT/HCPCS: 71046; 80048; 84484; 85025; 87631; 93005; 94640; 96374; 99285; A4216